=== PATIENT | female | born 1935 | race Caucasian/White ===

== ENCOUNTER 2017-02-14 08:58 | Day surgery (SDC) | payer MEDICARE, OTHER ==
[2017-02-14] MEDS: Polymyxin B/Trimethoprim 10 ML Bottle EYELF SCH ×4 (09:15→11:02)
[2017-02-14] MEDS: Brimonidine 0.2% Ophth Soln 5 ML Bottle EYELF SCH ×4 (09:22→11:02)
[2017-02-14] MEDS: Phenylephrine 2.5% Ophth Soln 2 ML Bot EYELF SCH ×6 (09:27→10:48)
--- NOTE | 2017-02-14 09:27 | PCM.PREANE ---
Preanesthetic Assessment - Anesthesia/Transfusion/Family Hx Anesthesia History: Prior Anesthesia Without Reaction Family History of Anesthesia Reaction: No Transfusion History: No Prior Transfusion(s) - Review of Systems General: No Symptoms Pulmonary: No Symptoms Cardiovascular: No Symptoms Gastrointestinal: No symptoms Neurological: No Symptoms Other: Reports: Diabetes - Physical Assessment NPO Status Date: 02/13/17 NPO Status Time: 00:00 Pulse: 66 O2 Sat by Pulse Oximetry: 94 Respiratory Rate: 16 Blood Pressure: 143/72 Temperature: 36.7 C Height: 1.68 m Weight: 90.718 kg ASA Class: 2 Mental Status: Alert & Oriented x3 Airway Class: Mallampati = 2 Dentition: Reports: Broken Tooth/Teeth, Caries Thyro-Mental Finger Breadths: 3 Mouth Opening Finger Breadths: 3 ROM/Head Extension: Full Lungs: Clear to auscultation, Normal respiratory effort Cardiovascular: Regular Rate, Regular Rhythm, No Murmurs - Allergies Allergies/Adverse Reactions: Allergies Allergy/AdvReac Type Severity Reaction Status Date / Time No Known Allergies Allergy Verified 02/13/17 15:29 - Blood Blood Available: No Product(s) Available: None - Anesthesia Plan Pre-Op Medication Ordered: Beta Cira Beta Cira: Metoprolol Med Last Dose Date: 02/13/17 Med Last Dose Time: 18:00 - Acknowledgements Anesthesia Type Planned: MAC Pt an Appropriate Candidate for the Planned Anesthesia: Yes Alternatives and Risks of Anesthesia Discussed w Pt/Guardian: Yes Pt/Guardian Understands and Agrees with Anesthesia Plan: Yes PreAnesthesia Questionnaire Cardiovascular History: Reports: Afib, Heart Failure, High Cholesterol, Hypertension, Pacemaker, Other (See Below) Other Cardiovascular History: distolic dysfunction, v-tach Respiratory History: Reports: PE, SOB Gastrointestinal History: Reports: Diverticulosis, GERD, Hiatal Hernia, Other ( See Below) Other Gastrointestinal History: lower abdominal pain, fatty liver Genitourinary History: Reports: Urinary Incontinence, UTI, Recurrent, Other ( See Below) Other Genitourinary History: chronic renal insuffciency, overactive bladder Musculoskeletal History: Reports: Back Pain, Chronic, Osteoporosis Other Musculoskeletal History: spinal stenosis Neurological History: Reports: Other (See Below) Other Neuro History: dementia Psychiatric History: Reports: Depression Endocrine/Metabolic History: Reports: Diabetes, Type II, Other (See Below) Other Endocrine/Metabolic History: goiter Other Dermatologic History: ingrown thumbnail - Past Surgical History GI Surgical History: Reports: Cholecystectomy Female Surgical History: Reports: Hysterectomy Musculoskeletal Surgical History: Reports: Hip Replacement - SUBSTANCE USE Smoking Status *Q: Never Smoker Recreational Drug Use History: No - HOME MEDS Home Medications: Home Meds Aspirin [Halfprin] 81 mg PO DAILY 12/24/14 [History] Darifenacin [Enablex] 15 mg PO DAILY 12/24/14 [History] Digoxin 250 mcg PO DAILY 12/24/14 [History] Donepezil HCl [Aricept] 10 mg PO DAILY 12/24/14 [History] Memantine HCl [Namenda] 14 mg PO DAILY 12/24/14 [History] Metoprolol Tartrate [Lopressor] 25 mg PO BID 12/24/14 [History] Omeprazole [Prilosec] 20 mg PO DAILY 12/24/14 [History] Raloxifene [Evista] 60 mg PO DAILY 12/24/14 [History] Saxagliptin HCl [Onglyza] 5 mg PO DAILY 12/24/14 [History] Venlafaxine [Effexor XR] 75 mg PO DAILY 12/24/14 [History] Warfarin [Coumadin] 5 mg PO DAILY 12/24/14 [History] Insulin Aspart [NovoLOG] 10 units SQ BEDTIME 02/22/15 [History] Insulin Aspart [NovoLOG] 20 units SQ ASDIRECTED 02/22/15 [History] Insulin Aspart [Novolog Flexpen] 28 units SQ QAM 02/22/15 [History] Insulin Detemir [Levemir Flextouch] 52 unit SQ QAM 02/22/15 [History] Omeprazole 20 mg PO DAILY 02/22/15 [History] atorvaSTATin [Lipitor] 40 mg PO BEDTIME 02/22/15 [History] Linagliptin [Tradjenta] 5 mg PO DAILY 05/31/16 [History] Mirabegron [Myrbetriq] 25 mg PO DAILY 05/31/16 [History] Warfarin [Coumadin] 2.5 mg PO DAILY 05/31/16 [History] - CURRENT (IN HOUSE) MEDS Current Meds: Current Medications Brimonidine Tartrate (Alphagan 0.2% Ophth Soln) 0 ml EYELF ASDIRECTED NATALIE Stop: 02/14/17 18:00 Cefuroxime Sodium (Zinacef) 0 mg EYELF ASDIRECTED NATALIE Stop: 02/14/17 18:00 Lidocaine HCl (Xylocaine-Mpf 1%) 1 ml INJECT ASDIRECTED NATALIE Stop: 02/14/17 18:00 Phenylephrine HCl (Hermelindo-Synephrine 2.5% Ophth Soln) 0 ml EYELF ASDIRECTED NATALIE Stop: 02/14/17 18:00 Pilocarpine HCl (Pilocar 4% Ophth Soln) 0 ml EYELF ASDIRECTED NATALIE Stop: 02/14/17 18:00 Polymyxin/Trimethoprim Sulfate (Polytrim Ophth Soln) 0 ml EYELF ASDIRECTED NATALIE Stop: 02/14/17 18:00 Last Admin: 02/14/17 09:15 Dose: 1 drop Tetracaine (Pontocaine 0.5% Ophth Drops) 0 ml EYELF ASDIRECTED NATALIE Stop: 02/14/17 18:00 Tropicamide (Mydriacyl 1% Ophth Soln) 0 ml EYELF ASDIRECTED NATALIE Stop: 02/14/17 18:00
[2017-02-14] MEDS: Tetracaine 0.5% 2 ML Bottle EYELF SCH ×3 (09:45→10:54)
[2017-02-14] MEDS: Cefuroxime 10 MG/ML SYRINGE EYELF SCH ×2 (09:45→10:56)
[2017-02-14] MEDS: Lidocaine 1% PF 2 ML SDV INJECT SCH ×2 (09:45→10:52)
[2017-02-14] MEDS: Pilocarpine 4% Ophth Soln 15 ML Bot EYELF SCH ×2 (09:46→11:02)
--- NOTE | 2017-02-14 11:06 | PCM48HPAN ---
Post Anesthesia Note - EVALUATION WITHIN 48HRS OF ANESTHETIC Vital Signs in Normal Range: Yes Patient Participated in Evaluation: Yes Respiratory Function Stable: Yes Airway Patent: Yes Cardiovascular Function Stable: Yes Hydration Status Stable: Yes Pain Control Satisfactory: Yes Nausea and Vomiting Control Satisfactory: Yes Mental Status Recovered: Yes
[2017-02-14 11:24] VITALS: BP 149/74
== END 2017-02-14 11:20 | disposition home or self-care (01) ==
LOC: JD.SDS 08:58
PROVIDERS: ATTEND Ophthalmology
DX: E10.36 Type 1 diabetes mellitus with diabetic cataract (principal); H25.813 Combined forms of age-related cataract, bilateral; H35.3131 Nonexudative age-related macular degeneration, bilateral, early dry stage; H02.834 Dermatochalasis of left upper eyelid; H02.831 Dermatochalasis of right upper eyelid; E78.00 Pure hypercholesterolemia, unspecified; I10 Essential (primary) hypertension; Z79.01 Long term (current) use of anticoagulants; Z79.899 Other long term (current) drug therapy; Z79.4 Long term (current) use of insulin; Z98.890 Other specified postprocedural states
CPT/HCPCS: 66984; A9270; J0697; C1780

== ENCOUNTER 2017-03-21 09:52 | Day surgery (SDC) | payer MEDICARE, OTHER ==
[~2017-03-21 09:52] MED LIST: Cefuroxime 10 MG/ML SYRINGE EYERT SCH; Lidocaine 1% PF 2 ML SDV INJECT SCH; Pilocarpine 4% Ophth Soln 15 ML Bot EYERT SCH
[2017-03-21] MEDS: Polymyxin B/Trimethoprim 10 ML Bottle EYERT SCH ×3 (10:43→12:41)
[2017-03-21] MEDS: Brimonidine 0.2% Ophth Soln 5 ML Bottle EYERT SCH ×3 (10:50→12:41)
[2017-03-21] MEDS: Phenylephrine 2.5% Ophth Soln 2 ML Bot EYERT SCH ×5 (10:55→12:24)
--- NOTE | 2017-03-21 11:32 | PCM.PREANE ---
Preanesthetic Assessment - Anesthesia/Transfusion/Family Hx Anesthesia History: Prior Anesthesia Without Reaction Family History of Anesthesia Reaction: No Transfusion History: No Prior Transfusion(s) - Review of Systems General: No Symptoms Pulmonary: No Symptoms Cardiovascular: Other (HTN, HLD, ) Gastrointestinal: No symptoms Neurological: No Symptoms Other: Reports: Diabetes - Physical Assessment NPO Status Date: 03/20/17 NPO Status Time: 21:00 O2 Sat by Pulse Oximetry: 96 Respiratory Rate: 16 Vital Signs: Last Vital Signs Temp 36.7 C 03/21/17 10:30 Pulse 68 03/21/17 10:30 Resp 16 03/21/17 10:30 BP 135/70 03/21/17 10:30 Pulse Ox 96 03/21/17 10:30 Height: 1.68 m Weight: 90.718 kg ASA Class: 3 Mental Status: Alert & Oriented x3 Airway Class: Mallampati = 3 Dentition: Reports: Normal Dentition (poor dentiton ) Thyro-Mental Finger Breadths: 3 Mouth Opening Finger Breadths: 3 ROM/Head Extension: Full Lungs: Clear to auscultation, Normal respiratory effort Cardiovascular: Regular Rate, Regular Rhythm - Allergies Allergies/Adverse Reactions: Allergies Allergy/AdvReac Type Severity Reaction Status Date / Time No Known Allergies Allergy Verified 03/20/17 16:14 - Blood Blood Available: No Product(s) Available: None - Anesthesia Plan Pre-Op Medication Ordered: None - Acknowledgements Anesthesia Type Planned: MAC Pt an Appropriate Candidate for the Planned Anesthesia: Yes Alternatives and Risks of Anesthesia Discussed w Pt/Guardian: Yes Pt/Guardian Understands and Agrees with Anesthesia Plan: Yes PreAnesthesia Questionnaire Cardiovascular History: Reports: Afib, Heart Failure, High Cholesterol, Hypertension, Pacemaker, Other (See Below) Other Cardiovascular History: distolic dysfunction, v-tach Respiratory History: Reports: PE, SOB Gastrointestinal History: Reports: Diverticulosis, GERD, Hiatal Hernia, Other ( See Below) Other Gastrointestinal History: lower abdominal pain, fatty liver Genitourinary History: Reports: Urinary Incontinence, UTI, Recurrent, Other ( See Below) Other Genitourinary History: chronic renal insuffciency, overactive bladder Musculoskeletal History: Reports: Back Pain, Chronic, Osteoporosis Other Musculoskeletal History: spinal stenosis Neurological History: Reports: Other (See Below) Other Neuro History: dementia Psychiatric History: Reports: Depression Endocrine/Metabolic History: Reports: Diabetes, Type II, Other (See Below) Other Endocrine/Metabolic History: goiter Other Dermatologic History: ingrown thumbnail - Past Surgical History GI Surgical History: Reports: Cholecystectomy Female Surgical History: Reports: Hysterectomy Musculoskeletal Surgical History: Reports: Hip Replacement - SUBSTANCE USE Smoking Status *Q: Never Smoker Recreational Drug Use History: No - HOME MEDS Home Medications: Home Meds Aspirin [Halfprin] 81 mg PO DAILY 12/24/14 [History] Darifenacin [Enablex] 15 mg PO DAILY 12/24/14 [History] Digoxin 250 mcg PO DAILY 12/24/14 [History] Donepezil HCl [Aricept] 10 mg PO DAILY 12/24/14 [History] Memantine HCl [Namenda] 14 mg PO DAILY 12/24/14 [History] Metoprolol Tartrate [Lopressor] 25 mg PO BID 12/24/14 [History] Omeprazole [Prilosec] 20 mg PO DAILY 12/24/14 [History] Raloxifene [Evista] 60 mg PO DAILY 12/24/14 [History] Saxagliptin HCl [Onglyza] 5 mg PO DAILY 12/24/14 [History] Venlafaxine [Effexor XR] 75 mg PO DAILY 12/24/14 [History] Warfarin [Coumadin] 5 mg PO DAILY 12/24/14 [History] Insulin Aspart [NovoLOG] 10 units SQ BEDTIME 02/22/15 [History] Insulin Aspart [NovoLOG] 20 units SQ ASDIRECTED 02/22/15 [History] Insulin Aspart [Novolog Flexpen] 28 units SQ QAM 02/22/15 [History] Insulin Detemir [Levemir Flextouch] 52 unit SQ QAM 02/22/15 [History] Omeprazole 20 mg PO DAILY 02/22/15 [History] atorvaSTATin [Lipitor] 40 mg PO BEDTIME 02/22/15 [History] Linagliptin [Tradjenta] 5 mg PO DAILY 05/31/16 [History] Mirabegron [Myrbetriq] 25 mg PO DAILY 05/31/16 [History] Warfarin [Coumadin] 2.5 mg PO DAILY 05/31/16 [History] - CURRENT (IN HOUSE) MEDS Current Meds: Current Medications Brimonidine Tartrate (Alphagan 0.2% Ophth Soln) 0 ml EYERT ASDIRECTED NATALIE Stop: 03/21/17 18:00 Last Admin: 03/21/17 10:50 Dose: 1 drop Cefuroxime Sodium (Zinacef) 0 mg EYERT ASDIRECTED NATALIE Stop: 03/21/17 18:00 Lidocaine HCl (Xylocaine-Mpf 1%) 10 ml INJECT ASDIRECTED NATALIE Stop: 03/21/17 18:00 Phenylephrine HCl (Hermelindo-Synephrine 2.5% Ophth Soln) 0 ml EYERT ASDIRECTED NATALIE Stop: 03/21/17 18:00 Last Admin: 03/21/17 11:16 Dose: 1 drop Pilocarpine HCl (Pilocar 4% Ophth Soln) 0 ml EYERT ASDIRECTED NATALIE Stop: 03/21/17 18:00 Polymyxin/Trimethoprim Sulfate (Polytrim Ophth Soln) 0 ml EYERT ASDIRECTED NATALIE Stop: 03/21/17 18:00 Last Admin: 03/21/17 11:25 Dose: 1 drop Tetracaine HCl (Tetracaine 0.5% Steri-Unit Magy) 1 ml EYERT ASDIRECTED NATALIE Stop: 03/21/17 18:00 Tropicamide (Mydriacyl 1% Oph Soln) 0 ml EYERT ASDIRECTED NATALIE Stop: 03/21/17 18:00 Last Admin: 03/21/17 11:20 Dose: 1 drop
[2017-03-21] MEDS: Tetracaine HCl/PF 0.5% 4 ML Bottle EYERT SCH ×2 (11:54→12:31)
[2017-03-21 12:54] VITALS: BP 153/62
== END 2017-03-21 12:51 | disposition home or self-care (01) ==
LOC: JD.SDS 09:52
PROVIDERS: ATTEND Ophthalmology
DX: H26.9 Unspecified cataract (principal); I10 Essential (primary) hypertension; E78.00 Pure hypercholesterolemia, unspecified; E11.9 Type 2 diabetes mellitus without complications; Z79.4 Long term (current) use of insulin; Z79.899 Other long term (current) drug therapy; Z79.01 Long term (current) use of anticoagulants; Z95.0 Presence of cardiac pacemaker; Z98.890 Other specified postprocedural states; Z96.649 Presence of unspecified artificial hip joint
CPT/HCPCS: 66984; A9270; J0697; C1780

== ENCOUNTER → 2017-08-21 | Day surgery (SDC) | payer MEDICARE, OTHER ==
[~2017-08-21] MED LIST changes: -Cefuroxime 10 MG/ML SYRINGE EYERT SCH; +Lactated Ringers 1,000 ML IV SCH; +Lidocaine 1% 30 ML SDV ONE; -Lidocaine 1% PF 2 ML SDV INJECT SCH; +Lidocaine 1%/Sod Bicarbonate in NS 8.4% 1 ML Syringe IV PRN; -Pilocarpine 4% Ophth Soln 15 ML Bot EYERT SCH; +Sodium Chloride 0.9% 10 ML Syringe FLUSH PRN; +Triamcinolone Acetonide 40 MG/ML 1 ML MDV ONE; +ceFAZolin 1 GM Vial ONE
[2017-08-21] MEDS: Bupivacaine 0.25% 30 ML SDV ONE ×2 (09:01→09:09)
[2017-08-21 10:23] VITALS: BP 144/68
--- NOTE | 2017-08-30 13:36 | PCM.OPNOTE ---
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
--- NOTE | 2017-08-30 14:16 | OR ---
DATE OF OPERATION: 08/21/2017 SURGEON: Nathanael Hammond MD OPERATION PERFORMED: 1. Right middle finger A1 adrian release. 2. Right carpal tunnel injection. PREOPERATIVE DIAGNOSIS: 1. Right middle finger stenosing tenosynovitis. 2. Right median nerve compression neuropathy. POSTOPERATIVE DIAGNOSIS: 1. Right middle finger stenosing tenosynovitis. 2. Right median nerve compression neuropathy. ANESTHESIA: Local only. TREASURY REPRESENTATIVE: Bella Godinez PA-C. ESTIMATED BLOOD LOSS: Less than 5 mL. COMPLICATIONS: None. CONDITION: Stable. DESCRIPTION OF PROCEDURE: The patient was identified in the preop holding area. Proper site was marked and identified by the surgeon. The patient was taken back to the operating theater, where after adequate anesthesia, the patient's right upper extremity was sterilely prepped and draped in the usual sterile fashion. OR-wide time-out was performed. The patient received 2 grams IV Ancef. At this time, the right upper extremity was exsanguinated with an Esmarch. Esmarch was used on the forearm as a tourniquet. A transverse incision was made over the A1 adrian of the right long finger after 1% lidocaine without epinephrine and 0.25% Marcaine without epinephrine were injected. This was taken down to the A1 adrian. Ragnell retractors were placed both radially and ulnarly to protect the neurovascular bundles. A [place] blade was then used for resection of the A1 adrian and then tenotomy scissors used proximally to enter the palm to make sure it was adequately released. The tendon was brought through the wound bed and it was found to have no significant adhesions. At this time, adequate saline was irrigated through the wound. 4-0 nylon simple suture was used for closure of the skin. After this was completed, 1 mL of 40 mg Kenalog and 1 mL of 0.25% Marcaine were injected at the carpal tunnel of the right wrist with 30 degrees distal and radial deviation. The patient tolerated these procedures well. Sterile soft dressing was applied. She was sent to the PACU in a stable condition. MMODAL /[id number]
== END | disposition home or self-care (01) ==
LOC: JD.SDS 07:29
PROVIDERS: ATTEND Orthopaedic Surgery
DX: G56.11 Other lesions of median nerve, right upper limb (principal); M65.841 Other synovitis and tenosynovitis, right hand; E11.9 Type 2 diabetes mellitus without complications; I10 Essential (primary) hypertension; E78.2 Mixed hyperlipidemia; I48.2 Chronic atrial fibrillation; Z79.4 Long term (current) use of insulin; Z79.82 Long term (current) use of aspirin; Z79.01 Long term (current) use of anticoagulants; Z79.899 Other long term (current) drug therapy; Z90.710 Acquired absence of both cervix and uterus; Z95.0 Presence of cardiac pacemaker
CPT/HCPCS: 20526; 26055; 36415; 82962; 85610; 87641; J0690; J3301; J3490

== ENCOUNTER 2021-07-01 14:29 | Inpatient (IN) | payer OTHER, MEDICARE, MEDICAID ==
[2021-07-01] MEDS ORDERED: Sodium Chloride 0.9% 10 ML Syringe FLUSH PRN (15:03)
[2021-07-01] MEDS ORDERED: Acetaminophen 650 MG Supp RECTAL ONE (15:05)
[2021-07-01] MEDS ORDERED: Sodium Chloride 0.9% 1,000 ML IV SCH ×2 (15:15→21:15)
--- NOTE | 2021-07-01 15:48 | CR ---
Chest: Frontal view of the chest was obtained. Comparison: Prior chest x-ray of 09/15/12 and 09/14/12. Heart is enlarged. Pulmonary vessels are slightly congested. Unichamber pacemaker is noted. Bony structures show nothing acute. Impression: 1. Findings suspicious for mild CHF. Diagnostic code #3
[2021-07-01] MEDS ORDERED: cefTRIAXone 2 GM in Sodium Chloride 0.9% 100 ML IV ONE (16:20)
[2021-07-01] MEDS ORDERED: Dexamethasone 4 MG/ML SDV IVPUSH ONE (17:03)
[2021-07-01] MEDS ORDERED: REMDESIVIR 200 MG in Sodium Chloride 0.9% 250 ML IV ONE (17:03)
--- NOTE | 2021-07-01 17:08 | EDM.PDOC ---
ED HPI GENERAL MEDICAL PROBLEM - General Chief Complaint: Fever Stated Complaint: POLI MORRIS Time Seen by Provider: 07/01/21 14:44 Source of Information: Reports: Prison Records History Limitations: Reports: Altered Mental Status - History of Present Illness INITIAL COMMENTS - FREE TEXT/NARRATIVE: The patient presents from the correction with a fever and shortness of breath. The patient had a COVID 19 test at the correction today and it was negative. Her temp was 101.6. Her oxygen saturations were low in the 80s. She was put on 2Ls and they came up. She has a slight cough. She is alert but does not talk. She can move her arms and leg. She did get the COVID vaccine. She had some stomach cramps a couple of days ago. Onset: Gradual Duration: Day(s): Severity: Moderate Improves with: Reports: None Worsens with: Reports: None Associated Symptoms: Reports: Cough, Fever/Chills, Shortness of Breath. Denies: Chest Pain, Headaches, Nausea/Vomiting - Related Data Allergies Allergy/AdvReac Type Severity Reaction Status Date / Time No Known Allergies Allergy Verified 08/18/17 10:26 Home Meds: Home Meds Aspirin [Halfprin] 81 mg PO DAILY 12/24/14 [History] Digoxin 125 mcg PO DAILY 12/24/14 [History] Donepezil HCl [Aricept] 10 mg PO DAILY 12/24/14 [History] Omeprazole [Prilosec] 20 mg PO BID 12/24/14 [History] Raloxifene [Evista] 60 mg PO DAILY 12/24/14 [History] Venlafaxine [Effexor XR] 75 mg PO DAILY 12/24/14 [History] Warfarin [Coumadin] 5 - 7.5 mg PO ASDIRECTED 12/24/14 [History] Insulin Aspart [NovoLOG] 23 units SQ 1200 02/22/15 [History] Insulin Aspart [NovoLOG] 23 units SQ 1700 02/22/15 [History] Insulin Aspart [Novolog Flexpen] 23 units SQ QAM 02/22/15 [History] atorvaSTATin [Lipitor] 40 mg PO BEDTIME 02/22/15 [History] Linagliptin [Tradjenta] 5 mg PO DAILY 05/31/16 [History] Mirabegron [Myrbetriq] 25 mg PO DAILY 05/31/16 [History] Insulin Aspart [NovoLOG] 10 units SQ BEDTIME 08/18/17 [History] Memantine [Namenda Xr] 14 mg PO DAILY 08/18/17 [History] Metoprolol Tartrate 25 mg PO BID 08/18/17 [History] estradioL [Vagifem] 10 mcg VAG ASDIRECTED 08/18/17 [History] traMADol HCl [Ultram] 50 - 100 mg PO Q6H PRN #10 tablet 08/19/17 [Rx] Past Medical History HEENT History: Reports: Cataract Cardiovascular History: Reports: Afib, Heart Failure, High Cholesterol, Hypertension, Pacemaker, Other (See Below) Other Cardiovascular History: distolic dysfunction, v-tach Respiratory History: Reports: PE, SOB Gastrointestinal History: Reports: Diverticulosis, GERD, Hiatal Hernia, Other (See Below) Other Gastrointestinal History: lower abdominal pain, fatty liver Genitourinary History: Reports: Urinary Incontinence, UTI, Recurrent, Other (See Below) Other Genitourinary History: chronic renal insuffciency, overactive bladder WOOD GETTER History: Reports: None Musculoskeletal History: Reports: Back Pain, Chronic, Osteoporosis Other Musculoskeletal History: spinal stenosis Neurological History: Reports: Other (See Below) Other Neuro History: dementia Psychiatric History: Reports: Depression Endocrine/Metabolic History: Reports: Diabetes, Type II, Other (See Below) Other Endocrine/Metabolic History: goiter Hematologic History: Reports: None Immunologic History: Reports: None Oncologic (Cancer) History: Reports: None Other Dermatologic History: ingrown thumbnail - Past Surgical History HEENT Surgical History: Reports: Cataract Surgery GI Surgical History: Reports: Cholecystectomy Female Surgical History: Reports: Hysterectomy Musculoskeletal Surgical History: Reports: Hip Replacement Oncologic Surgical History: Reports: None Social & Family History - Tobacco Use Tobacco Use Status *Q: Never Tobacco User Second Hand Smoke Exposure: No - Caffeine Use Caffeine Use: Reports: None - Recreational Drug Use Recreational Drug Use: No ED ROS GENERAL - Review of Systems Review Of Systems: See Below Constitutional: Reports: Fever, Chills HEENT: Reports: No Symptoms Respiratory: Reports: Shortness of Breath, Cough Cardiovascular: Reports: No Symptoms Endocrine: Reports: No Symptoms GI/Abdominal: Reports: No Symptoms ED EXAM, SEPSIS - Physical Exam Exam: See Below Exam Limited By: Other (The patient is alert but does not talk) General Appearance: Alert, No Apparent Distress Ears: Normal External Exam Nose: Normal Inspection Head: Atraumatic, Normocephalic Neck: Normal Inspection Respiratory/Chest: No Respiratory Distress, Decreased Breath Sounds Cardiovascular: Regular Rate, Rhythm, No Edema, No Murmur GI/Abdominal Exam: Soft, Non-Tender, No Organomegaly, No Mass Back: Normal Inspection Extremities: Normal Inspection Course - Vital Signs Last Recorded V/S: Last Vital Signs Temp 101.6 F H 07/01/21 16:19 Pulse 86 07/01/21 16:15 Resp 28 H 07/01/21 16:15 BP 148/83 H 07/01/21 16:15 Pulse Ox 94 L 07/01/21 16:15 - Orders/Labs/Meds Orders: Active Orders 24 hr Category Date Time Status Cardiac Monitoring [RC] . DIRECTED Care 07/01/21 15:03 Active Oxygen Therapy [RC] PRN Care 07/01/21 15:03 Active Peripheral IV Care [RC] . DIRECTED Care 07/01/21 15:04 Active BLOOD CULTURE [MREF] Stat Lab 07/01/21 14:55 Received BLOOD CULTURE [MREF] Stat Lab 07/01/21 15:15 Received PRO B-TYPE NATRIUR PEPT,BNPPRO [CHEM] Stat Lab 07/01/21 17:13 Ordered REFLEX LACTIC ACID YES OR NO [CHEM] Routine Lab 07/01/21 16:14 Received Sodium Chloride 0.9% [Normal Saline] 1,000 ml Med 07/01/21 15:15 Active IV ASDIRECTED Sodium Chloride 0.9% [Saline Flush] Med 07/01/21 15:03 Active 10 ml FLUSH ASDIRECTED PRN Blood Culture x2 Reflex Set [OM.PC] Stat Oth 07/01/21 17:03 Ordered Peripheral IV Insertion Adult [OM.PC] Stat Oth 07/01/21 15:03 Ordered Medication Orders Sodium Chloride (Normal Saline) 1,000 mls @ 125 mls/hr IV ASDIRECTED NATALIE Last Admin: 07/01/21 16:26 Dose: 125 mls/hr Documented by: KANDICE Sodium Chloride (Sodium Chloride 0.9% 10 Ml Syringe) 10 ml FLUSH ASDIRECTED PRN PRN Reason: Keep Vein Open Last Admin: 07/01/21 14:55 Dose: 10 ml Documented by: KANDICE Labs: Laboratory Tests 07/01/21 07/01/21 07/01/21 Range/Units 14:55 14:55 14:55 WBC 8.10 (3.98-10.04) K/mm3 RBC 3.99 (3.98-5.22) M/mm3 Hgb 12.4 (11.2-15.7) gm/dl Hct 40.0 (34.1-44.9) % MCV 100.3 H (79.4-94.8) fl MCH 31.1 (25.6-32.2) pg MCHC 31.0 L (32.2-35.5) g/dl RDW Std Deviation 54.0 H (36.4-46.3) fL Plt Count 179 L (182-369) K/mm3 MPV 10.5 (9.4-12.3) fl Neut % (Auto) 71.1 (34.0-71.1) % Lymph % (Auto) 8.3 L (19.3-51.7) % Reagan % (Auto) 19.3 H (4.7-12.5) % Eos % (Auto) 0.1 L (0.7-5.8) Baso % (Auto) 0.6 (0.1-1.2) % Neut # (Auto) 5.76 (1.56-6.13) K/mm3 Lymph # (Auto) 0.67 L (1.18-3.74) K/mm3 Reagan # (Auto) 1.56 H (0.24-0.36) K/mm3 Eos # (Auto) 0.01 L (0.04-0.36) K/mm3 Baso # (Auto) 0.05 (0.01-0.08) K/mm3 Manual Slide Review Abnormal smear PT (9.7-12.0) SECONDS INR Sodium 138 (136-145) mEq/L Potassium 4.1 (3.5-5.1) mEq/L Chloride 100 (98-107) mEq/L Carbon Dioxide 29 (21-32) mEq/L Anion Gap 13.1 (5-15) BUN 31 H (7-18) mg/dL Creatinine 2.0 H (0.55-1.02) mg/dL Est Cr Clr Drug Dosing TNP Estimated GFR (MDRD) 24 (>60) mL/min BUN/Creatinine Ratio 15.5 (14-18) Glucose 138 H (70-99) mg/dL POC Glucose (70-99) mg/dL Lactic Acid 2.3 H* (0.4-2.0) mmol/L Calcium 9.1 (8.5-10.1) mg/dL Total Bilirubin 0.7 (0.2-1.0) mg/dL AST 27 (15-37) U/L ALT 23 (14-59) U/L Alkaline Phosphatase 34 L (46-116) U/L C-Reactive Protein 17.0 H* (<1.0) mg/dL Total Protein 7.6 (6.4-8.2) g/dl Albumin 3.1 L (3.4-5.0) g/dl Globulin 4.5 gm/dL Albumin/Globulin Ratio 0.7 L (1-2) Urine Color (Yellow) Urine Appearance (Clear) Urine pH (5.0-8.0) Ur Specific [place] (1.005-1.030) Urine Protein (Negative) Urine Glucose (UA) (Negative) Urine Ketones (Negative) Urine Occult Blood (Negative) Urine Nitrite (Negative) Urine Bilirubin (Negative) Urine Urobilinogen (0.2-1.0) Ur Leukocyte Esterase (Negative) U Hyaline Cast (Auto) (0-5) /lpf Urine RBC (0-5) /hpf Urine WBC (0-5) /hpf Ur Squamous Epith Cells (0-5) /hpf Urine Bacteria (FEW) /hpf Urine Mucus (FEW) /hpf SARS-CoV-2 RNA (JANE) (NEGATIVE) 07/01/21 07/01/21 07/01/21 Range/Units 14:55 14:57 16:00 WBC (3.98-10.04) K/mm3 RBC (3.98-5.22) M/mm3 Hgb (11.2-15.7) gm/dl Hct (34.1-44.9) % MCV (79.4-94.8) fl MCH (25.6-32.2) pg MCHC (32.2-35.5) g/dl RDW Std Deviation (36.4-46.3) fL Plt Count (182-369) K/mm3 MPV (9.4-12.3) fl Neut % (Auto) (34.0-71.1) % Lymph % (Auto) (19.3-51.7) % Reagan % (Auto) (4.7-12.5) % Eos % (Auto) (0.7-5.8) Baso % (Auto) (0.1-1.2) % Neut # (Auto) (1.56-6.13) K/mm3 Lymph # (Auto) (1.18-3.74) K/mm3 Reagan # (Auto) (0.24-0.36) K/mm3 Eos # (Auto) (0.04-0.36) K/mm3 Baso # (Auto) (0.01-0.08) K/mm3 Manual Slide Review PT 16.1 H (9.7-12.0) SECONDS INR 1.47 Sodium (136-145) mEq/L Potassium (3.5-5.1) mEq/L Chloride (98-107) mEq/L Carbon Dioxide (21-32) mEq/L Anion Gap (5-15) BUN (7-18) mg/dL Creatinine (0.55-1.02) mg/dL Est Cr Clr Drug Dosing Estimated GFR (MDRD) (>60) mL/min BUN/Creatinine Ratio (14-18) Glucose (70-99) mg/dL POC Glucose 138 H (70-99) mg/dL Lactic Acid (0.4-2.0) mmol/L Calcium (8.5-10.1) mg/dL Total Bilirubin (0.2-1.0) mg/dL AST (15-37) U/L ALT (14-59) U/L Alkaline Phosphatase (46-116) U/L C-Reactive Protein (<1.0) mg/dL Total Protein (6.4-8.2) g/dl Albumin (3.4-5.0) g/dl Globulin gm/dL Albumin/Globulin Ratio (1-2) Urine Color (Yellow) Urine Appearance (Clear) Urine pH (5.0-8.0) Ur Specific [place] (1.005-1.030) Urine Protein (Negative) Urine Glucose (UA) (Negative) Urine Ketones (Negative) Urine Occult Blood (Negative) Urine Nitrite (Negative) Urine Bilirubin (Negative) Urine Urobilinogen (0.2-1.0) Ur Leukocyte Esterase (Negative) U Hyaline Cast (Auto) (0-5) /lpf Urine RBC (0-5) /hpf Urine WBC (0-5) /hpf Ur Squamous Epith Cells (0-5) /hpf Urine Bacteria (FEW) /hpf Urine Mucus (FEW) /hpf SARS-CoV-2 RNA (JANE) Positive H (NEGATIVE) 07/01/21 Range/Units 16:05 WBC (3.98-10.04) K/mm3 RBC (3.98-5.22) M/mm3 Hgb (11.2-15.7) gm/dl Hct (34.1-44.9) % MCV (79.4-94.8) fl MCH (25.6-32.2) pg MCHC (32.2-35.5) g/dl RDW Std Deviation (36.4-46.3) fL Plt Count (182-369) K/mm3 MPV (9.4-12.3) fl Neut % (Auto) (34.0-71.1) % Lymph % (Auto) (19.3-51.7) % Reagan % (Auto) (4.7-12.5) % Eos % (Auto) (0.7-5.8) Baso % (Auto) (0.1-1.2) % Neut # (Auto) (1.56-6.13) K/mm3 Lymph # (Auto) (1.18-3.74) K/mm3 Reagan # (Auto) (0.24-0.36) K/mm3 Eos # (Auto) (0.04-0.36) K/mm3 Baso # (Auto) (0.01-0.08) K/mm3 Manual Slide Review PT (9.7-12.0) SECONDS INR Sodium (136-145) mEq/L Potassium (3.5-5.1) mEq/L Chloride (98-107) mEq/L Carbon Dioxide (21-32) mEq/L Anion Gap (5-15) BUN (7-18) mg/dL Creatinine (0.55-1.02) mg/dL Est Cr Clr Drug Dosing Estimated GFR (MDRD) (>60) mL/min BUN/Creatinine Ratio (14-18) Glucose (70-99) mg/dL POC Glucose (70-99) mg/dL Lactic Acid (0.4-2.0) mmol/L Calcium (8.5-10.1) mg/dL Total Bilirubin (0.2-1.0) mg/dL AST (15-37) U/L ALT (14-59) U/L Alkaline Phosphatase (46-116) U/L C-Reactive Protein (<1.0) mg/dL Total Protein (6.4-8.2) g/dl Albumin (3.4-5.0) g/dl Globulin gm/dL Albumin/Globulin Ratio (1-2) Urine Color Yellow (Yellow) Urine Appearance Clear (Clear) Urine pH 5.5 (5.0-8.0) Ur Specific [place] 1.025 (1.005-1.030) Urine Protein 1+ H (Negative) Urine Glucose (UA) Negative (Negative) Urine Ketones Trace H (Negative) Urine Occult Blood Negative (Negative) Urine Nitrite Negative (Negative) Urine Bilirubin Negative (Negative) Urine Urobilinogen 0.2 (0.2-1.0) Ur Leukocyte Esterase Negative (Negative) U Hyaline Cast (Auto) 0-5 (0-5) /lpf Urine RBC 0-5 (0-5) /hpf Urine WBC 0-5 (0-5) /hpf Ur Squamous Epith Cells Not seen (0-5) /hpf Urine Bacteria Few (FEW) /hpf Urine Mucus Not seen (FEW) /hpf SARS-CoV-2 RNA (JANE) (NEGATIVE) Meds: Medications Generic Name Dose Route Start Last Admin Trade Name Freq PRN Reason Stop Dose Admin Sodium Chloride 1,000 mls @ 125 mls/hr 07/01/21 15:15 07/01/21 16:26 Normal Saline IV 125 mls/hr ASDIRECTED NATALIE Administration Sodium Chloride 10 ml 07/01/21 15:03 07/01/21 14:55 Sodium Chloride 0.9% 10 Ml Syringe FLUSH 10 ml ASDIRECTED PRN Administration Keep Vein Open Discontinued Medications Generic Name Dose Route Start Last Admin Trade Name Freq PRN Reason Stop Dose Admin Acetaminophen 650 mg 07/01/21 15:05 07/01/21 16:19 Acetaminophen 650 Mg Supp RECTAL 07/01/21 15:06 650 mg NOW ONE Administration Dexamethasone 6 mg 07/01/21 17:03 Dexamethasone 4 Mg/Ml Sdv IVPUSH 07/01/21 17:04 ONETIME ONE Ceftriaxone Sodium 2 gm/ 100 mls @ 200 mls/hr 07/01/21 16:20 07/01/21 16:46 Sodium Chloride IV 07/01/21 16:49 200 mls/hr ONETIME ONE Administration Remdesivir 200 mg/ Sodium 250 mls @ 250 mls/hr 07/01/21 17:03 Chloride IV 07/01/21 17:04 ONETIME ONE - Re-Assessments/Exams Free Text/Narrative Re-Assessment/Exam: 07/01/21 17:27 I ordered oxygen, IV NS at 125mL/hr, CXR, blood cultures, lactic acid, UA, labs and COVID 19. Her CBC looks good. Her PT was 16.1. Her creatine is 2. Her glucose is 136. Her lactic acid is elevated at 2.3. His CRP is 17. Her UA shows no UTI. Her CXR shows congestion changes. Her UA shows no UTI. She is COVID 19 positive. I ordered rocephin before I had the COVID back. Her lactic was high and she had a fever. I have ordered dexamethasone 6mg IV and I cannot give remdesivir because of her high creatinine. I feel she needs to be admitted. I called Dr Bender and he agreed to the admission. I also talked with her sons. Departure - Departure Time of Disposition: 17:35 Disposition: Admitted As Inpatient 67 Condition: Serious Clinical Impression: COVID-19, Hypoxia - Discharge Information Referrals: Reed Yin MD [Primary Care Provider] - Forms: ED Department Discharge Sepsis Event Note (ED) - Evaluation Sepsis Screening Result: No Definite Risk - Focused Exam Vital Signs: Vital Signs Temp Temp Pulse Resp BP Pulse Ox 07/01/21 16:19 101.6 F H 07/01/21 16:15 101.6 F H 86 28 H 148/83 H 94 L 07/01/21 14:30 101.5 F H 104 H 32 H 142/63 H 87 L - My Orders Last 24 Hours: My Active Orders 07/01/21 14:55 BLOOD CULTURE [MREF] Stat 07/01/21 15:03 Cardiac Monitoring [RC] . DIRECTED Oxygen Therapy [RC] PRN Sodium Chloride 0.9% [Saline Flush] 10 ml FLUSH ASDIRECTED PRN Peripheral IV Insertion Adult [OM.PC] Stat 07/01/21 15:04 Peripheral IV Care [RC] . DIRECTED 07/01/21 15:15 BLOOD CULTURE [MREF] Stat Sodium Chloride 0.9% [Normal Saline] 1,000 ml IV ASDIRECTED 07/01/21 16:14 REFLEX LACTIC ACID YES OR NO [CHEM] Routine 07/01/21 17:03 Blood Culture x2 Reflex Set [OM.PC] Stat 07/01/21 17:13 PRO B-TYPE NATRIUR PEPT,BNPPRO [CHEM] Stat - Assessment/Plan Last 24 Hours: My Active Orders 07/01/21 14:55 BLOOD CULTURE [MREF] Stat 07/01/21 15:03 Cardiac Monitoring [RC] . DIRECTED Oxygen Therapy [RC] PRN Sodium Chloride 0.9% [Saline Flush] 10 ml FLUSH ASDIRECTED PRN Peripheral IV Insertion Adult [OM.PC] Stat 07/01/21 15:04 Peripheral IV Care [RC] . DIRECTED 07/01/21 15:15 BLOOD CULTURE [MREF] Stat Sodium Chloride 0.9% [Normal Saline] 1,000 ml IV ASDIRECTED 07/01/21 16:14 REFLEX LACTIC ACID YES OR NO [CHEM] Routine 07/01/21 17:03 Blood Culture x2 Reflex Set [OM.PC] Stat 07/01/21 17:13 PRO B-TYPE NATRIUR PEPT,BNPPRO [CHEM] Stat
[2021-07-01] MEDS ORDERED: FLU Vacc QS2021(65UP)/MF59C/PF 60 MCG/0.5 ML Syringe IM ONE (20:00)
[2021-07-01] MEDS ORDERED: Acetaminophen 325 MG Tab PO PRN (20:51)
[2021-07-01] MEDS ORDERED: Albuterol 0.083% 2.5 MG/3 ML Neb Soln NEB PRN (20:51)
[2021-07-01] MEDS ORDERED: Ondansetron 4 MG/2 ML SDV IV PRN (20:51)
[2021-07-01] MEDS ORDERED: Albuterol/Ipratropium 3.0-0.5 MG/3 ML Neb Soln NEB PRN (20:51)
[2021-07-01] MEDS ORDERED: Acetaminophen 650 MG Supp RECTAL PRN (20:51)
[2021-07-01] MEDS ORDERED: Bisacodyl 10 MG Supp RECTAL PRN (20:58)
--- NOTE | 2021-07-01 21:10 | PCM.HP.2 ---
H&P History of Present Illness - General Date of Service: 07/01/21 Admit Problem/Dx: Admission Diagnosis/Problem Admission Diagnosis/Problem Hypoxia - History of Present Illness Initial Comments - Free Text/Narative: 86-year-old female resident of [facility] with Alzheimer's dementia, atrial fibrillation, psychotic disorder with delusions due to known physiological condition, abnormalities of gait, dysphagia unspecified, borderline intellectual functioning, unspecified psychosis, atrial fibrillation with use of warfarin, diabetes mellitus on insulin, chronic kidney disease, hypertension, sick sinus syndrome with pacemaker, venous insufficiency, gastroesophageal reflux disease, history of pressure ulcer of right buttock stage III but not current presents to the emergency department with a fever of 101.6, oxygen saturations in the low eighties, slight cough, and change in mental status. Reportedly [facility]ative at the [facility], but on presentation to the emergency department and when transferred to the floor she would open her eyes, look around, move her arms and legs, but not speak. Patient had a negative Covid test at the [facility], but it was positive here in the emergency department. History was not obtained through the patient had to be obtained through the emergency department notes and the [facility] documentation. In the emergency department she was started on IV fluids, chest x-ray, blood cultures, lab work and started on ceftriaxone and dexamethasone. Chest x-ray showed possible CHF with a BNP of 567. C-reactive protein was elevated at 17. She had lactic acidosis initially with a lactic acid of 2.3 and on repeat 1.0. Acute renal failure creatinine of 2.0 and estimated GFR of 24. Remdesivir was not given secondary to renal function. She was previously vaccinated - Related Data Allergies/Adverse Reactions: Allergies Allergy/AdvReac Type Severity Reaction Status Date / Time atorvastatin [From Lipitor] Allergy Cannot Verified 07/01/21 18:47 Remember Home Medications: Home Meds Aspirin [Halfprin] 81 mg PO BEDTIME 12/24/14 [History] Digoxin 125 mcg PO DAILY 12/24/14 [History] Raloxifene [Evista] 60 mg PO DAILY 12/24/14 [History] Warfarin [Coumadin] 2.5 mg PO WE 12/24/14 [History] Insulin Aspart [NovoLOG] 14 units SQ TIDMEALS 02/22/15 [History] Insulin Aspart [Novolog Flexpen] See Protocol SQ TIDMEALS 02/22/15 [History] Metoprolol Tartrate 12.5 mg PO BID 08/18/17 [History] Acetaminophen 650 mg PO TID 07/01/21 [History] Acetaminophen 650 mg PO TID PRN 07/01/21 [History] Albuterol Sulfate [Albuterol Sulfate HFA] 2 puff INH DAILY 07/01/21 [History] Albuterol Sulfate [Albuterol Sulfate HFA] 2 puff INH Q4H PRN 07/01/21 [History] Calcium Carb/Vitamin D3/Vit K1 [Calcium + D Soft Chewable Tab] 1 tab PO BID 07/01/21 [History] Docusate Sodium/Sennosides [Senna Plus] 2 tab PO BID 07/01/21 [History] Docusate Sodium/Sennosides [Senna Plus] 2 tab PO DAILY PRN 07/01/21 [History] Insulin Glarg,Human.Rec.Analog [Lantus] 18 unit SQ DAILY 07/01/21 [History] Levothyroxine 25 mcg PO ACBREAKFAST 07/01/21 [History] Mirabegron [Myrbetriq] 25 mg PO DAILY 07/01/21 [History] Polyvinyl Alcohol [LiquiTears 1.4% Oph Soln] 1 drop EYEBOTH BID PRN 07/01/21 [History] Venlafaxine HCl 100 mg PO DAILY 07/01/21 [History] Warfarin [Coumadin] 5 mg PO SUMOTUTHFRSA 07/01/21 [History] bisacodyL [Dulcolax] 10 mg RECTAL DAILY PRN 07/01/21 [History] polyethylene glycoL 3350 [MiraLAX] 17 gram PO DAILY PRN 07/01/21 [History] Past Medical History HEENT History: Reports: Cataract Other HEENT History: Dermatochalasis of bilat upper eyelids Cardiovascular History: Reports: Afib, Heart Failure, High Cholesterol, Hypertension, Pacemaker, Other (See Below) Other Cardiovascular History: distolic dysfunction, v-tach. Sick sinus syndrome Respiratory History: Reports: PE, SOB Gastrointestinal History: Reports: Diverticulosis, GERD, Hiatal Hernia, Other (See Below) Other Gastrointestinal History: lower abdominal pain, fatty liver. dysphagia Genitourinary History: Reports: Urinary Incontinence, UTI, Recurrent, Other (See Below) Other Genitourinary History: chronic renal insuffciency, overactive bladder [employer] History: Reports: None Musculoskeletal History: Reports: Arthritis, Back Pain, Chronic, Osteoporosis Other Musculoskeletal History: spinal stenosis. unsteady of feet. arthritis to bilat knees. Neurological History: Reports: Other (See Below) Other Neuro History: dementia Psychiatric History: Reports: Depression, Other (See Below) Other Psychiatric History: psychotic disorder with delusions Endocrine/Metabolic History: Reports: Diabetes, Type II, Other (See Below) Other Endocrine/Metabolic History: goiter Hematologic History: Reports: None Immunologic History: Reports: None Oncologic (Cancer) History: Reports: None Other Dermatologic History: ingrown thumbnail. History of stage 3 Pressure ulcer of right buttock - Infectious Disease History Infectious Disease History: Reports: Novel Coronavirus - Past Surgical History HEENT Surgical History: Reports: Cataract Surgery GI Surgical History: Reports: Cholecystectomy Female Surgical History: Reports: Hysterectomy Musculoskeletal Surgical History: Reports: Hip Replacement Oncologic Surgical History: Reports: None Social & Family History - Tobacco Use Tobacco Use Status *Q: Never Tobacco User Second Hand Smoke Exposure: No - Caffeine Use Caffeine Use: Reports: Coffee - Recreational Drug Use Recreational Drug Use: No H&P Review of Systems - Review of Systems: Review Of Systems: Unable To Obtain Reason Not Obtained: Not communicative Exam - Exam Exam: See Below - Vital Signs Vital Signs: Last Vital Signs Temp 100.4 F 07/01/21 18:38 Pulse 89 07/01/21 18:38 Resp 24 H 07/01/21 18:38 BP 154/75 H 07/01/21 18:38 Pulse Ox 98 07/01/21 18:38 Weight: 231 lb 4.8 oz - Exam Quality Assessment: Supplemental Oxygen General: Alert, Mild Distress. No: Oriented HEENT: Conjunctiva Clear, EACs Clear, Hearing Intact, Mucosa Moist & [place] Neck: Supple, Trachea Midline Lungs: Normal Respiratory Effort, Crackles (Bibasilar) Cardiovascular: Irregular Rhythm (Regular rate and rhythm consistent with A. fib) GI/Abdominal Exam: Normal Bowel Sounds, Soft, Non-Tender, No Distention Extremities: Normal Inspection, Normal Range of Motion, Non-Tender, Normal Capillary Refill, Pedal Edema (1+) - Patient Data Lab Results Last 24 hrs: Laboratory Results - last 24 hr 0907/01/21 07/01/21 Range/Units 14:55 14:55 14:55 WBC 8.10 (3.98-10.04) K/mm3 RBC 3.99 (3.98-5.22) M/mm3 Hgb 12.4 (11.2-15.7) gm/dl Hct 40.0 (34.1-44.9) % MCV 100.3 H (79.4-94.8) fl MCH 31.1 (25.6-32.2) pg MCHC 31.0 L (32.2-35.5) g/dl RDW Std Deviation 54.0 H (36.4-46.3) fL Plt Count 179 L (182-369) K/mm3 MPV 10.5 (9.4-12.3) fl Neut % (Auto) 71.1 (34.0-71.1) % Lymph % (Auto) 8.3 L (19.3-51.7) % [place] % (Auto) 19.3 H (4.7-12.5) % Eos % (Auto) 0.1 L (0.7-5.8) Baso % (Auto) 0.6 (0.1-1.2) % Neut # (Auto) 5.76 (1.56-6.13) K/mm3 Lymph # (Auto) 0.67 L (1.18-3.74) K/mm3 [place] # (Auto) 1.56 H (0.24-0.36) K/mm3 Eos # (Auto) 0.01 L (0.04-0.36) K/mm3 Baso # (Auto) 0.05 (0.01-0.08) K/mm3 Manual Slide Review Abnormal smear PT (9.7-12.0) SECONDS INR Sodium 138 (136-145) mEq/L Potassium 4.1 (3.5-5.1) mEq/L Chloride 100 (98-107) mEq/L Carbon Dioxide 29 (21-32) mEq/L Anion Gap 13.1 (5-15) BUN 31 H (7-18) mg/dL Creatinine 2.0 H (0.55-1.02) mg/dL Est Cr Clr Drug Dosing TNP Estimated GFR (MDRD) 24 (>60) mL/min BUN/Creatinine Ratio 15.5 (14-18) Glucose 138 H (70-99) mg/dL POC Glucose (70-99) mg/dL Lactic Acid 2.3 H* (0.4-2.0) mmol/L Calcium 9.1 (8.5-10.1) mg/dL Total Bilirubin 0.7 (0.2-1.0) mg/dL AST 27 (15-37) U/L ALT 23 (14-59) U/L Alkaline Phosphatase 34 L (46-116) U/L C-Reactive Protein 17.0 H* (<1.0) mg/dL NT-Pro-B Natriuret Pep (0-450) pg/mL Total Protein 7.6 (6.4-8.2) g/dl Albumin 3.1 L (3.4-5.0) g/dl Globulin 4.5 gm/dL Albumin/Globulin Ratio 0.7 L (1-2) Urine Color (Yellow) Urine Appearance (Clear) Urine pH (5.0-8.0) Ur Specific [place] (1.005-1.030) Urine Protein (Negative) Urine Glucose (UA) (Negative) Urine Ketones (Negative) Urine Occult Blood (Negative) Urine Nitrite (Negative) Urine Bilirubin (Negative) Urine Urobilinogen (0.2-1.0) Ur Leukocyte Esterase (Negative) U Hyaline Cast (Auto) (0-5) /lpf Urine RBC (0-5) /hpf Urine WBC (0-5) /hpf Ur Squamous Epith Cells (0-5) /hpf Urine Bacteria (FEW) /hpf Urine Mucus (FEW) /hpf SARS-CoV-2 RNA (JANE) (NEGATIVE) MRSA (PCR) 07/01/21 07/01/21 07/01/21 Range/Units 14:55 14:57 16:00 WBC (3.98-10.04) K/mm3 RBC (3.98-5.22) M/mm3 Hgb (11.2-15.7) gm/dl Hct (34.1-44.9) % MCV (79.4-94.8) fl MCH (25.6-32.2) pg MCHC (32.2-35.5) g/dl RDW Std Deviation (36.4-46.3) fL Plt Count (182-369) K/mm3 MPV (9.4-12.3) fl Neut % (Auto) (34.0-71.1) % Lymph % (Auto) (19.3-51.7) % [place] % (Auto) (4.7-12.5) % Eos % (Auto) (0.7-5.8) Baso % (Auto) (0.1-1.2) % Neut # (Auto) (1.56-6.13) K/mm3 Lymph # (Auto) (1.18-3.74) K/mm3 [place] # (Auto) (0.24-0.36) K/mm3 Eos # (Auto) (0.04-0.36) K/mm3 Baso # (Auto) (0.01-0.08) K/mm3 Manual Slide Review PT 16.1 H (9.7-12.0) SECONDS INR 1.47 Sodium (136-145) mEq/L Potassium (3.5-5.1) mEq/L Chloride (98-107) mEq/L Carbon Dioxide (21-32) mEq/L Anion Gap (5-15) BUN (7-18) mg/dL Creatinine (0.55-1.02) mg/dL Est Cr Clr Drug Dosing Estimated GFR (MDRD) (>60) mL/min BUN/Creatinine Ratio (14-18) Glucose (70-99) mg/dL POC Glucose 138 H (70-99) mg/dL Lactic Acid (0.4-2.0) mmol/L Calcium (8.5-10.1) mg/dL Total Bilirubin (0.2-1.0) mg/dL AST (15-37) U/L ALT (14-59) U/L Alkaline Phosphatase (46-116) U/L C-Reactive Protein (<1.0) mg/dL NT-Pro-B Natriuret Pep (0-450) pg/mL Total Protein (6.4-8.2) g/dl Albumin (3.4-5.0) g/dl Globulin gm/dL Albumin/Globulin Ratio (1-2) Urine Color (Yellow) Urine Appearance (Clear) Urine pH (5.0-8.0) Ur Specific [place] (1.005-1.030) Urine Protein (Negative) Urine Glucose (UA) (Negative) Urine Ketones (Negative) Urine Occult Blood (Negative) Urine Nitrite (Negative) Urine Bilirubin (Negative) Urine Urobilinogen (0.2-1.0) Ur Leukocyte Esterase (Negative) U Hyaline Cast (Auto) (0-5) /lpf Urine RBC (0-5) /hpf Urine WBC (0-5) /hpf Ur Squamous Epith Cells (0-5) /hpf Urine Bacteria (FEW) /hpf Urine Mucus (FEW) /hpf SARS-CoV-2 RNA (JANE) Positive H (NEGATIVE) MRSA (PCR) 07/01/21 07/01/21 07/01/21 Range/Units 16:05 18:20 18:20 WBC (3.98-10.04) K/mm3 RBC (3.98-5.22) M/mm3 Hgb (11.2-15.7) gm/dl Hct (34.1-44.9) % MCV (79.4-94.8) fl MCH (25.6-32.2) pg MCHC (32.2-35.5) g/dl RDW Std Deviation (36.4-46.3) fL Plt Count (182-369) K/mm3 MPV (9.4-12.3) fl Neut % (Auto) (34.0-71.1) % Lymph % (Auto) (19.3-51.7) % [place] % (Auto) (4.7-12.5) % Eos % (Auto) (0.7-5.8) Baso % (Auto) (0.1-1.2) % Neut # (Auto) (1.56-6.13) K/mm3 Lymph # (Auto) (1.18-3.74) K/mm3 [place] # (Auto) (0.24-0.36) K/mm3 Eos # (Auto) (0.04-0.36) K/mm3 Baso # (Auto) (0.01-0.08) K/mm3 Manual Slide Review PT (9.7-12.0) SECONDS INR Sodium (136-145) mEq/L Potassium (3.5-5.1) mEq/L Chloride (98-107) mEq/L Carbon Dioxide (21-32) mEq/L Anion Gap (5-15) BUN (7-18) mg/dL Creatinine (0.55-1.02) mg/dL Est Cr Clr Drug Dosing Estimated GFR (MDRD) (>60) mL/min BUN/Creatinine Ratio (14-18) Glucose (70-99) mg/dL POC Glucose (70-99) mg/dL Lactic Acid 1.0 (0.4-2.0) mmol/L Calcium (8.5-10.1) mg/dL Total Bilirubin (0.2-1.0) mg/dL AST (15-37) U/L ALT (14-59) U/L Alkaline Phosphatase (46-116) U/L C-Reactive Protein (<1.0) mg/dL NT-Pro-B Natriuret Pep 567 H (0-450) pg/mL Total Protein (6.4-8.2) g/dl Albumin (3.4-5.0) g/dl Globulin gm/dL Albumin/Globulin Ratio (1-2) Urine Color Yellow (Yellow) Urine Appearance Clear (Clear) Urine pH 5.5 (5.0-8.0) Ur Specific [place] 1.025 (1.005-1.030) Urine Protein 1+ H (Negative) Urine Glucose (UA) Negative (Negative) Urine Ketones Trace H (Negative) Urine Occult Blood Negative (Negative) Urine Nitrite Negative (Negative) Urine Bilirubin Negative (Negative) Urine Urobilinogen 0.2 (0.2-1.0) Ur Leukocyte Esterase Negative (Negative) U Hyaline Cast (Auto) 0-5 (0-5) /lpf Urine RBC 0-5 (0-5) /hpf Urine WBC 0-5 (0-5) /hpf Ur Squamous Epith Cells Not seen (0-5) /hpf Urine Bacteria Few (FEW) /hpf Urine Mucus Not seen (FEW) /hpf SARS-CoV-2 RNA (JANE) (NEGATIVE) MRSA (PCR) 07/01/21 Range/Units 18:30 WBC (3.98-10.04) K/mm3 RBC (3.98-5.22) M/mm3 Hgb (11.2-15.7) gm/dl Hct (34.1-44.9) % MCV (79.4-94.8) fl MCH (25.6-32.2) pg MCHC (32.2-35.5) g/dl RDW Std Deviation (36.4-46.3) fL Plt Count (182-369) K/mm3 MPV (9.4-12.3) fl Neut % (Auto) (34.0-71.1) % Lymph % (Auto) (19.3-51.7) % [place] % (Auto) (4.7-12.5) % Eos % (Auto) (0.7-5.8) Baso % (Auto) (0.1-1.2) % Neut # (Auto) (1.56-6.13) K/mm3 Lymph # (Auto) (1.18-3.74) K/mm3 [place] # (Auto) (0.24-0.36) K/mm3 Eos # (Auto) (0.04-0.36) K/mm3 Baso # (Auto) (0.01-0.08) K/mm3 Manual Slide Review PT (9.7-12.0) SECONDS INR Sodium (136-145) mEq/L Potassium (3.5-5.1) mEq/L Chloride (98-107) mEq/L Carbon Dioxide (21-32) mEq/L Anion Gap (5-15) BUN (7-18) mg/dL Creatinine (0.55-1.02) mg/dL Est Cr Clr Drug Dosing Estimated GFR (MDRD) (>60) mL/min BUN/Creatinine Ratio (14-18) Glucose (70-99) mg/dL POC Glucose (70-99) mg/dL Lactic Acid (0.4-2.0) mmol/L Calcium (8.5-10.1) mg/dL Total Bilirubin (0.2-1.0) mg/dL AST (15-37) U/L ALT (14-59) U/L Alkaline Phosphatase (46-116) U/L C-Reactive Protein (<1.0) mg/dL NT-Pro-B Natriuret Pep (0-450) pg/mL Total Protein (6.4-8.2) g/dl Albumin (3.4-5.0) g/dl Globulin gm/dL Albumin/Globulin Ratio (1-2) Urine Color (Yellow) Urine Appearance (Clear) Urine pH (5.0-8.0) Ur Specific [place] (1.005-1.030) Urine Protein (Negative) Urine Glucose (UA) (Negative) Urine Ketones (Negative) Urine Occult Blood (Negative) Urine Nitrite (Negative) Urine Bilirubin (Negative) Urine Urobilinogen (0.2-1.0) Ur Leukocyte Esterase (Negative) U Hyaline Cast (Auto) (0-5) /lpf Urine RBC (0-5) /hpf Urine WBC (0-5) /hpf Ur Squamous Epith Cells (0-5) /hpf Urine Bacteria (FEW) /hpf Urine Mucus (FEW) /hpf SARS-CoV-2 RNA (JANE) (NEGATIVE) MRSA (PCR) Negative Result Diagrams: 07/02/21 06:50 07/02/21 06:50 Greg Results Last 24 hrs: Microbiology 07/01/21 16:00 Influenza Type A Antigen Screen - Final Nasopharyngeal Swab - Nare, Unspecified NEGATIVE INFLUENZA A VIRUS AG REFERENCE RANGE: NEGATIVE Influenza Type B Antigen Screen - Final NEGATIVE INFLUENZA B VIRUS AG REFERENCE RANGE: NEGATIVE Sepsis Event Note - Evaluation Sepsis Screening Result: No Definite Risk - Focused Exam Vital Signs: Vital Signs Temp Temp Pulse Pulse Resp BP BP 07/01/21 18:38 100.4 F 89 24 H 154/75 H 07/01/21 18:26 101.6 F H 80 16 130/56 L 07/01/21 16:19 101.6 F H 07/01/21 16:15 101.6 F H 86 28 H 148/83 H 07/01/21 14:30 101.5 F H 104 H 32 H 142/63 H Pulse Ox 07/01/21 18:38 98 07/01/21 18:26 94 L 07/01/21 16:19 07/01/21 16:15 94 L 07/01/21 14:30 87 L - Problem List (1) Pneumonia due to COVID-19 virus SNOMED Code(s): 200358235097084314 ICD Code: U07.1 - COVID-19; J12.82 - PNEUMONIA DUE TO CORONAVIRUS DISEASE 2019 Status: Acute Current Visit: Yes (2) Insulin dependent diabetes mellitus SNOMED Code(s): 53376698 ICD Code: [id number] - Status: Acute Current Visit: Yes (3) Acute on chronic renal insufficiency SNOMED Code(s): 001894232 ICD Code: N28.9 - DISORDER OF KIDNEY AND URETER, UNSPECIFIED; N18.9 - CHRONIC KIDNEY DISEASE, UNSPECIFIED Status: Acute Current Visit: Yes (4) Atrial fibrillation SNOMED Code(s): 03881680 ICD Code: I48.91 - UNSPECIFIED ATRIAL FIBRILLATION Status: Acute Current Visit: Yes Problem List Initiated/Reviewed/Updated: Yes Orders Last 24hrs: Active Orders 24 hr Category Date Time Status Admission Status [Patient Status] [ADT] Routine ADT 07/01/21 17:25 Active Blood Glucose Check, Bedside [RC] QIDACANDBED Care 07/01/21 20:01 Active Blood Glucose Check, Bedside [RC] QIDACANDBED Care 07/01/21 21:05 Ordered Cardiac Monitoring [RC] . DIRECTED Care 07/01/21 15:03 Active Nurse Communication: Isolation [RC] ASDIRECTED Care 07/01/21 20:51 Ordered Oxygen Therapy [RC] PRN Care 07/01/21 15:03 Active Oxygen Therapy [RC] PRN Care 07/01/21 20:51 Ordered RT Aerosol Therapy [RC] ASDIRECTED Care 07/01/21 20:54 Ordered RT Incentive Spirometry [RC] ASDIRECTED Care 07/01/21 20:51 Ordered Up With Assistance [RC] ASDIRECTED Care 07/01/21 20:51 Ordered VTE/DVT Education [RC] PER UNIT ROUTINE Care 07/01/21 20:51 Ordered Vaccine to be Administered/Admin Charge [RC] ASDIRECTED Care 07/01/21 19:09 Active Vital Signs [RC] Q4H Care 07/01/21 20:51 Ordered PT Evaluation and Treatment [CONS] Routine Cons 07/01/21 20:51 Ordered Nothing per Oral Now Diet [DIET] Diet 07/01/21 Dinner Ordered BLOOD CULTURE [MREF] Stat Lab 07/01/21 14:55 Received BLOOD CULTURE [MREF] Stat Lab 07/01/21 15:15 Received C-REACTIVE PROTEIN [CHEM] AM Lab 07/02/21 05:11 Ordered CBC WITH AUTO DIFF [HEME] AM Lab 07/02/21 05:11 Ordered CMP [COMPREHENSIVE METABOLIC PN,CMP] [CHEM] AM Lab 07/02/21 05:11 Ordered DD [D-DIMER QUANTITATIVE] [COAG] AM Lab 07/02/21 05:11 Ordered DIGOXIN [CHEM] AM Lab 07/02/21 05:11 Ordered INR,PT,PROTHROMBIN TIME [COAG] AM Lab 07/02/21 05:11 Ordered INR,PT,PROTHROMBIN TIME [COAG] AM Lab 07/03/21 05:11 Ordered INR,PT,PROTHROMBIN TIME [COAG] AM Lab 07/04/21 05:11 Ordered INR,PT,PROTHROMBIN TIME [COAG] AM Lab 07/05/21 05:11 Ordered INR,PT,PROTHROMBIN TIME [COAG] AM Lab 07/06/21 05:11 Ordered INR,PT,PROTHROMBIN TIME [COAG] AM Lab 07/07/21 05:11 Ordered MAGNESIUM [CHEM] AM Lab 07/02/21 05:11 Ordered PHOSPHORUS [CHEM] AM Lab 07/02/21 05:11 Ordered Acetaminophen [TylenoL] Med 07/01/21 20:51 Ordered 650 mg PO Q4H PRN Acetaminophen [Tylenol] Med 07/01/21 20:51 Ordered 650 mg RECTAL Q4H PRN Albuterol Sulfate Med 07/02/21 09:00 Ordered 2 puff INH DAILY Albuterol Sulfate Med 07/01/21 20:58 Ordered 2 puff INH Q4H PRN Albuterol [Proventil Neb Soln] Med 07/01/21 20:51 Ordered 2.5 mg NEB Q2H PRN Albuterol/Ipratropium [DuoNeb 3.0-0.5 MG/3 ML] Med 07/01/21 20:51 Ordered 3 ml NEB Q4H PRN Aspirin [Halfprin] Med 07/01/21 21:00 Ordered 81 mg PO BEDTIME Azithromycin [Zithromax] 500 mg Med 07/01/21 21:15 Ordered Sodium Chloride 0.9% [Normal Saline (AdvBag)] 250 ml IV Q24H Digoxin [Lanoxin] Med 07/02/21 09:00 Ordered 125 mcg PO DAILY Docusate Sodium/Sennosides [Senna Plus] Med 07/01/21 21:00 Ordered 2 tab PO BID Docusate Sodium/Sennosides [Senna Plus] Med 07/01/21 20:58 Ordered 2 tab PO DAILY PRN Insulin Glarg,Human.Rec.Analog [LantUS] Med 07/02/21 09:00 Ordered 10 unit SUBCUT DAILY Insulin Lispro [HumaLOG] Med 07/01/21 22:00 Ordered See Protocol SUBCUT QIDACANDBED Levothyroxine Med 07/02/21 06:00 Ordered 25 mcg PO ACBREAKFAST Metoprolol Tartrate [Lopressor] Med 07/01/21 21:00 Ordered 12.5 mg PO BID Ondansetron [Zofran] Med 07/01/21 20:51 Ordered 4 mg IV Q6H PRN Pharmacy to Dose - InFluenza V [Pharmacy to Dose - Med 07/01/21 19:09 Pending InFluenza Vaccine] 1 each IM ONETIME ONE Pharmacy to Dose - Warfarin Med 07/01/21 21:00 Ordered 1 dose .XX ASDIRECTED Sodium Chloride 0.9% @ 50 MLS/HR(1000ml Bag) Med 07/01/21 21:15 Ordered Sodium Chloride 0.9% [Normal Saline] 1,000 ml IV ASDIRECTED Sodium Chloride 0.9% [Saline Flush] Med 07/01/21 15:03 Active 10 ml FLUSH ASDIRECTED PRN Venlafaxine HCl [Venlafaxine HCl] Med 07/02/21 09:00 Ordered 100 mg PO DAILY bisacodyL [Dulcolax] Med 07/01/21 20:58 Ordered 10 mg RECTAL DAILY PRN cefTRIAXone [Rocephin] 2 gm Med 07/02/21 16:00 Ordered Sodium Chloride 0.9% [Normal Saline] 100 ml IV Q24H dexAMETHasone [Decadron] Med 07/02/21 09:00 Ordered 6 mg IVPUSH DAILY Blood Culture x2 Reflex Set [OM.PC] Stat Ot 07/01/21 17:03 Ordered Isolation [COMM] Stat Ot 07/01/21 20:51 Ordered Peripheral IV Insertion Adult [OM.PC] Stat Ot 07/01/21 15:03 Ordered RT Acapella [RESPCARE] Routine Oth 07/01/21 20:51 Ordered Resuscitation Status Routine Resus Stat 07/01/21 20:51 Ordered Medication Orders Acetaminophen (Acetaminophen 650 Mg Supp) 650 mg RECTAL Q4H PRN PRN Reason: Pain (mild 1-3) Acetaminophen (Acetaminophen 325 Mg Tab) 650 mg PO Q4H PRN PRN Reason: Pain (Mild 1-3)/fever Albuterol (Albuterol 0.083% 2.5 Mg/3 Ml Neb Soln) 2.5 mg NEB Q2H PRN PRN Reason: Shortness Of Breath/wheezing Albuterol/Ipratropium (Albuterol/Ipratropium 3.0-0.5 Mg/3 Ml Neb Soln) 3 ml NEB Q4H PRN PRN Reason: Shortness Of Breath/wheezing Aspirin (Aspirin 81 Mg Tab.Ec) 81 mg PO BEDTIME [facility] Bisacodyl (Bisacodyl 10 Mg Supp) 10 mg RECTAL DAILY PRN PRN Reason: Constipation Dexamethasone (Dexamethasone 10 Mg/Ml Sdv) 6 mg IVPUSH DAILY [facility] Stop: 07/11/21 09:01 Digoxin (Digoxin 250 Mcg Tab) 125 mcg PO DAILY [facility] Ceftriaxone Sodium 2 gm/ (Sodium Chloride) 100 mls @ 200 mls/hr IV Q24H [facility]ALIE Stop: 07/05/21 16:29 Azithromycin 500 mg/ Sodium (Chloride) 250 mls @ 250 mls/hr IV Q24H [facility] Stop: 07/03/21 22:29 Sodium Chloride (Normal Saline) 1,000 mls @ 50 mls/hr IV ASDIRECTED [facility] Influenza Virus Vaccine (Pharmacy To Dose - Influenza Vaccine) 1 each IM ONETIME ONE Stop: 07/01/21 19:10 Insulin Glargine (Insulin Glarg,Human.Rec.Analog 100 Unit/Ml) 10 unit SUBCUT [facility] Insulin Human Lispro (Insulin Lispro 100 Unit/Ml 10 Ml Vial) 0 unit SUBCUT QIDACANDBED [facility]; Protocol Levothyroxine Sodium (Levothyroxine 25 Mcg Tab) 25 mcg PO ACBREAKFAST [facility] Metoprolol Tartrate (Metoprolol Tartrate 50 Mg Tab) 12.5 mg PO BID [facility] Non-Formulary Medication (Albuterol Sulfate) 2 puff INH DAILY [facility] Non-Formulary Medication (Albuterol Sulfate) 2 puff INH Q4H PRN PRN Reason: Shortness of Breath Non-Formulary Medication (Venlafaxine Hcl [Venlafaxine Hcl]) 100 mg PO DAILY [facility] Ondansetron HCl (Ondansetron 4 Mg/2 Ml Sdv) 4 mg IV Q6H PRN PRN Reason: Nausea/Vomiting Senna/Docusate Sodium (Docusate Sodium/Sennosides 50-8.6 Mg Tab) 2 tab PO BID [facility] Senna/Docusate Sodium (Docusate Sodium/Sennosides 50-8.6 Mg Tab) 2 tab PO DAILY PRN PRN Reason: Constipation Sodium Chloride (Sodium Chloride 0.9% 10 Ml Syringe) 10 ml FLUSH ASDIRECTED PRN PRN Reason: Keep Vein Open Last Admin: 07/01/21 14:55 Dose: 10 ml Documented by: KANDICE Warfarin Sodium (Pharmacy To Dose - Warfarin) 1 dose .XX ASDIRECTED [facility] Assessment/Plan Comment:: 86-year-old female with Alzheimer's dementia, atrial fibrillation, psychotic disorder with delusions due to known physiological condition, abnormalities of gait, dysphagia unspecified, borderline intellectual functioning, unspecified psychosis, atrial fibrillation with use of warfarin, diabetes mellitus on in sulin, chronic kidney disease, hypertension, sick sinus syndrome with pacemaker, venous insufficiency, gastroesophageal reflux disease, history of pressure ulcer of right buttock stage III but not current presents to emergency department with altered mental status, hypoxia due to COVID-19 pneumonia. Respiratory failure secondary to COVID-19 pneumonia Altered mental status * Oxygen saturations on arrival were in the low eighties requiring 2 to 3 L of O2 via nasal cannula * Renal function too poor to be able to start remdesivir * Temperature on arrival of 101.6 * Altered mental status likely secondary to metabolic encephalopathy and COVID- 19 * White count 8.1, platelets 179, CRP 17, lactic acid went from 2.3-1.0 * Elevated BNP may be secondary to CHF versus renal insufficiency * Received Covid vaccination Alzheimer's dementia * Patient's baseline mental functioning is reduced because of her history of psychosis and Alzheimer's dementia. She is able to communicate normally. Atrial fibrillation on warfarin Subtherapeutic INR * INR is subtherapeutic at 1.47 * Rate is controlled on home medications Insulin-dependent diabetes mellitus * No hemoglobin A1c * MAR says she is on 14 units of short acting insulin at meals and 18 units of Lantus daily Acute renal failure on chronic * Initial GFR less than 30 therefore no remdesivir will be started * No recent baseline renal function available * Started on fluids in the emergency department Hypertension/sick sinus syndrome with pacemaker * Monitor blood pressure and heart rate closely Plan * Admit patient to the floor on strict isolation * Continue IV fluids * Continue remdesivir and ceftriaxone * Start azithromycin * Follow Covid labs to include CBC, CMP, mag, Phos, CRP, D-dimer * Get procalcitonin * Reconcile home meds and continue appropriate medications * Pharmacy to dose warfarin * Daily INR * Initially n.p.o. because of mental status * Advance diet if mental status improves tomorrow * Lantus 10 units daily initially and increase as needed; sliding scale scale insulin; consider prandial blood sugars if taking p.o. well * Hemoglobin A1c * Renally adjust medications * VTE prophylaxis with Lovenox * CODE STATUS: Full code - Mortality Measure Prognosis:: Poor
[2021-07-01] MEDS: Aspirin 81 MG Tab.EC PO SCH (21:49)
[2021-07-01] MEDS: Azithromycin 500 MG in Sodium Chloride 0.9% 250 ML IV SCH (21:50)
[2021-07-01] MEDS: Metoprolol Tartrate 25 MG Tab PO SCH (22:03)
[2021-07-01] MEDS ORDERED: Warfarin 5 MG Tab PO ONE (23:00)
[2021-07-01] MEDS: Insulin Lispro 100 UNIT/ML 10 ML Vial SUBCUT SCH (23:09)
[2021-07-02] MEDS: Levothyroxine 25 MCG Tab PO SCH (06:26)
[2021-07-02] MEDS ORDERED: Magnesium Sulfate/Water 2 GM in Premix Bag 1 BAG IV ONE (08:29)
[2021-07-02] MEDS: Albuterol 6.7 GM Inhaler INH SCH (08:30)
[2021-07-02] MEDS: Insulin Glarg,Human.Rec.Analog 100 Unit/ML SUBCUT SCH (09:02)
[2021-07-02] MEDS: Insulin Lispro 100 UNIT/ML 10 ML Vial SUBCUT SCH ×4 (09:03→21:32)
[2021-07-02] MEDS: Dexamethasone 10 MG/ML SDV IVPUSH SCH (09:04)
[2021-07-02] MEDS: Digoxin 125 MCG Tab PO SCH (09:05)
[2021-07-02] MEDS: Metoprolol Tartrate 25 MG Tab PO SCH ×2 (09:08→20:26)
[2021-07-02] MEDS: VENLAFAXINE HCL 100 MG PO SCH (09:09)
--- NOTE | 2021-07-02 12:39 | PCM.PN ---
- General Info Date of Service: 07/02/21 Admission Dx/Problem (Free Text): Admission Diagnosis/Problem Admission Diagnosis/Problem Hypoxia Subjective Update: Patient responded verbally this morning. She seems to be feeling much better and did take her medications in applesauce while standing there Functional Status: Reports: Pain Controlled - Review of Systems General: Reports: Other (Unable to obtain due to underlying dementia and possibly delirium) - Patient Data Vitals - Most Recent: Last Vital Signs Temp 97.9 F 07/02/21 11:35 Pulse 62 07/02/21 11:35 Resp 17 07/02/21 11:35 BP 145/86 H 07/02/21 11:00 Pulse Ox 91 L 07/02/21 11:35 Weight - Most Recent: 230 lb I&O - Last 24 Hours: Intake & Output 07/01/21 07/02/21 07/02/21 22:59 06:59 14:59 Intake Total 625 Balance 625 Lab Results Last 24 Hours: Laboratory Results - last 24 hr 07/01/21 07/01/21 07/01/21 Range/Units 14:55 14:55 14:55 WBC 8.10 (3.98-10.04) K/mm3 RBC 3.99 (3.98-5.22) M/mm3 Hgb 12.4 (11.2-15.7) gm/dl Hct 40.0 (34.1-44.9) % MCV 100.3 H (79.4-94.8) fl MCH 31.1 (25.6-32.2) pg MCHC 31.0 L (32.2-35.5) g/dl RDW Std Deviation 54.0 H (36.4-46.3) fL Plt Count 179 L (182-369) K/mm3 MPV 10.5 (9.4-12.3) fl Neut % (Auto) 71.1 (34.0-71.1) % Lymph % (Auto) 8.3 L (19.3-51.7) % [place] % (Auto) 19.3 H (4.7-12.5) % Eos % (Auto) 0.1 L (0.7-5.8) Baso % (Auto) 0.6 (0.1-1.2) % Neut # (Auto) 5.76 (1.56-6.13) K/mm3 Lymph # (Auto) 0.67 L (1.18-3.74) K/mm3 [place] # (Auto) 1.56 H (0.24-0.36) K/mm3 Eos # (Auto) 0.01 L (0.04-0.36) K/mm3 Baso # (Auto) 0.05 (0.01-0.08) K/mm3 Manual Slide Review Abnormal smear PT (9.7-12.0) SECONDS INR D-Dimer, Quantitative (0.19-0.50) mg/L Sodium 138 (136-145) mEq/L Potassium 4.1 (3.5-5.1) mEq/L Chloride 100 (98-107) mEq/L Carbon Dioxide 29 (21-32) mEq/L Anion Gap 13.1 (5-15) BUN 31 H (7-18) mg/dL Creatinine 2.0 H (0.55-1.02) mg/dL Est Cr Clr Drug Dosing TNP Estimated GFR (MDRD) 24 (>60) mL/min BUN/Creatinine Ratio 15.5 (14-18) Glucose 138 H (70-99) mg/dL POC Glucose (70-99) mg/dL Lactic Acid 2.3 H* (0.4-2.0) mmol/L Calcium 9.1 (8.5-10.1) mg/dL Phosphorus (2.6-4.7) mg/dL Magnesium (1.8-2.4) mg/dL Total Bilirubin 0.7 (0.2-1.0) mg/dL AST 27 (15-37) U/L ALT 23 (14-59) U/L Alkaline Phosphatase 34 L (46-116) U/L C-Reactive Protein 17.0 H* (<1.0) mg/dL NT-Pro-B Natriuret Pep (0-450) pg/mL Total Protein 7.6 (6.4-8.2) g/dl Albumin 3.1 L (3.4-5.0) g/dl Globulin 4.5 gm/dL Albumin/Globulin Ratio 0.7 L (1-2) Urine Color (Yellow) Urine Appearance (Clear) Urine pH (5.0-8.0) Ur Specific [place] (1.005-1.030) Urine Protein (Negative) Urine Glucose (UA) (Negative) Urine Ketones (Negative) Urine Occult Blood (Negative) Urine Nitrite (Negative) Urine Bilirubin (Negative) Urine Urobilinogen (0.2-1.0) Ur Leukocyte Esterase (Negative) U Hyaline Cast (Auto) (0-5) /lpf Urine RBC (0-5) /hpf Urine WBC (0-5) /hpf Ur Squamous Epith Cells (0-5) /hpf Urine Bacteria (FEW) /hpf Urine Mucus (FEW) /hpf Digoxin (0.9-2.0) ng/mL SARS-CoV-2 RNA (JANE) (NEGATIVE) MRSA (PCR) 07/01/21 07/01/21 07/01/21 Range/Units 14:55 14:57 16:00 WBC (3.98-10.04) K/mm3 RBC (3.98-5.22) M/mm3 Hgb (11.2-15.7) gm/dl Hct (34.1-44.9) % MCV (79.4-94.8) fl MCH (25.6-32.2) pg MCHC (32.2-35.5) g/dl RDW Std Deviation (36.4-46.3) fL Plt Count (182-369) K/mm3 MPV (9.4-12.3) fl Neut % (Auto) (34.0-71.1) % Lymph % (Auto) (19.3-51.7) % [place] % (Auto) (4.7-12.5) % Eos % (Auto) (0.7-5.8) Baso % (Auto) (0.1-1.2) % Neut # (Auto) (1.56-6.13) K/mm3 Lymph # (Auto) (1.18-3.74) K/mm3 [place] # (Auto) (0.24-0.36) K/mm3 Eos # (Auto) (0.04-0.36) K/mm3 Baso # (Auto) (0.01-0.08) K/mm3 Manual Slide Review PT 16.1 H (9.7-12.0) SECONDS INR 1.47 D-Dimer, Quantitative (0.19-0.50) mg/L Sodium (136-145) mEq/L Potassium (3.5-5.1) mEq/L Chloride (98-107) mEq/L Carbon Dioxide (21-32) mEq/L Anion Gap (5-15) BUN (7-18) mg/dL Creatinine (0.55-1.02) mg/dL Est Cr Clr Drug Dosing Estimated GFR (MDRD) (>60) mL/min BUN/Creatinine Ratio (14-18) Glucose (70-99) mg/dL POC Glucose 138 H (70-99) mg/dL Lactic Acid (0.4-2.0) mmol/L Calcium (8.5-10.1) mg/dL Phosphorus (2.6-4.7) mg/dL Magnesium (1.8-2.4) mg/dL Total Bilirubin (0.2-1.0) mg/dL AST (15-37) U/L ALT (14-59) U/L Alkaline Phosphatase (46-116) U/L C-Reactive Protein (<1.0) mg/dL NT-Pro-B Natriuret Pep (0-450) pg/mL Total Protein (6.4-8.2) g/dl Albumin (3.4-5.0) g/dl Globulin gm/dL Albumin/Globulin Ratio (1-2) Urine Color (Yellow) Urine Appearance (Clear) Urine pH (5.0-8.0) Ur Specific [place] (1.005-1.030) Urine Protein (Negative) Urine Glucose (UA) (Negative) Urine Ketones (Negative) Urine Occult Blood (Negative) Urine Nitrite (Negative) Urine Bilirubin (Negative) Urine Urobilinogen (0.2-1.0) Ur Leukocyte Esterase (Negative) U Hyaline Cast (Auto) (0-5) /lpf Urine RBC (0-5) /hpf Urine WBC (0-5) /hpf Ur Squamous Epith Cells (0-5) /hpf Urine Bacteria (FEW) /hpf Urine Mucus (FEW) /hpf Digoxin (0.9-2.0) ng/mL SARS-CoV-2 RNA (JANE) Positive H (NEGATIVE) MRSA (PCR) 07/01/21 07/01/21 07/01/21 Range/Units 16:05 18:20 18:20 WBC (3.98-10.04) K/mm3 RBC (3.98-5.22) M/mm3 Hgb (11.2-15.7) gm/dl Hct (34.1-44.9) % MCV (79.4-94.8) fl MCH (25.6-32.2) pg MCHC (32.2-35.5) g/dl RDW Std Deviation (36.4-46.3) fL Plt Count (182-369) K/mm3 MPV (9.4-12.3) fl Neut % (Auto) (34.0-71.1) % Lymph % (Auto) (19.3-51.7) % [place] % (Auto) (4.7-12.5) % Eos % (Auto) (0.7-5.8) Baso % (Auto) (0.1-1.2) % Neut # (Auto) (1.56-6.13) K/mm3 Lymph # (Auto) (1.18-3.74) K/mm3 [place] # (Auto) (0.24-0.36) K/mm3 Eos # (Auto) (0.04-0.36) K/mm3 Baso # (Auto) (0.01-0.08) K/mm3 Manual Slide Review PT (9.7-12.0) SECONDS INR D-Dimer, Quantitative (0.19-0.50) mg/L Sodium (136-145) mEq/L Potassium (3.5-5.1) mEq/L Chloride (98-107) mEq/L Carbon Dioxide (21-32) mEq/L Anion Gap (5-15) BUN (7-18) mg/dL Creatinine (0.55-1.02) mg/dL Est Cr Clr Drug Dosing Estimated GFR (MDRD) (>60) mL/min BUN/Creatinine Ratio (14-18) Glucose (70-99) mg/dL POC Glucose (70-99) mg/dL Lactic Acid 1.0 (0.4-2.0) mmol/L Calcium (8.5-10.1) mg/dL Phosphorus (2.6-4.7) mg/dL Magnesium (1.8-2.4) mg/dL Total Bilirubin (0.2-1.0) mg/dL AST (15-37) U/L ALT (14-59) U/L Alkaline Phosphatase (46-116) U/L C-Reactive Protein (<1.0) mg/dL NT-Pro-B Natriuret Pep 567 H (0-450) pg/mL Total Protein (6.4-8.2) g/dl Albumin (3.4-5.0) g/dl Globulin gm/dL Albumin/Globulin Ratio (1-2) Urine Color Yellow (Yellow) Urine Appearance Clear (Clear) Urine pH 5.5 (5.0-8.0) Ur Specific [place] 1.025 (1.005-1.030) Urine Protein 1+ H (Negative) Urine Glucose (UA) Negative (Negative) Urine Ketones Trace H (Negative) Urine Occult Blood Negative (Negative) Urine Nitrite Negative (Negative) Urine Bilirubin Negative (Negative) Urine Urobilinogen 0.2 (0.2-1.0) Ur Leukocyte Esterase Negative (Negative) U Hyaline Cast (Auto) 0-5 (0-5) /lpf Urine RBC 0-5 (0-5) /hpf Urine WBC 0-5 (0-5) /hpf Ur Squamous Epith Cells Not seen (0-5) /hpf Urine Bacteria Few (FEW) /hpf Urine Mucus Not seen (FEW) /hpf Digoxin (0.9-2.0) ng/mL SARS-CoV-2 RNA (JANE) (NEGATIVE) MRSA (PCR) 07/01/21 07/01/21 07/02/21 Range/Units 18:30 22:00 06:31 WBC (3.98-10.04) K/mm3 RBC (3.98-5.22) M/mm3 Hgb (11.2-15.7) gm/dl Hct (34.1-44.9) % MCV (79.4-94.8) fl MCH (25.6-32.2) pg MCHC (32.2-35.5) g/dl RDW Std Deviation (36.4-46.3) fL Plt Count (182-369) K/mm3 MPV (9.4-12.3) fl Neut % (Auto) (34.0-71.1) % Lymph % (Auto) (19.3-51.7) % [place] % (Auto) (4.7-12.5) % Eos % (Auto) (0.7-5.8) Baso % (Auto) (0.1-1.2) % Neut # (Auto) (1.56-6.13) K/mm3 Lymph # (Auto) (1.18-3.74) K/mm3 [place] # (Auto) (0.24-0.36) K/mm3 Eos # (Auto) (0.04-0.36) K/mm3 Baso # (Auto) (0.01-0.08) K/mm3 Manual Slide Review PT (9.7-12.0) SECONDS INR D-Dimer, Quantitative (0.19-0.50) mg/L Sodium (136-145) mEq/L Potassium (3.5-5.1) mEq/L Chloride (98-107) mEq/L Carbon Dioxide (21-32) mEq/L Anion Gap (5-15) BUN (7-18) mg/dL Creatinine (0.55-1.02) mg/dL Est Cr Clr Drug Dosing Estimated GFR (MDRD) (>60) mL/min BUN/Creatinine Ratio (14-18) Glucose (70-99) mg/dL POC Glucose 190 H 230 H (70-99) mg/dL Lactic Acid (0.4-2.0) mmol/L Calcium (8.5-10.1) mg/dL Phosphorus (2.6-4.7) mg/dL Magnesium (1.8-2.4) mg/dL Total Bilirubin (0.2-1.0) mg/dL AST (15-37) U/L ALT (14-59) U/L Alkaline Phosphatase (46-116) U/L C-Reactive Protein (<1.0) mg/dL NT-Pro-B Natriuret Pep (0-450) pg/mL Total Protein (6.4-8.2) g/dl Albumin (3.4-5.0) g/dl Globulin gm/dL Albumin/Globulin Ratio (1-2) Urine Color (Yellow) Urine Appearance (Clear) Urine pH (5.0-8.0) Ur Specific [place] (1.005-1.030) Urine Protein (Negative) Urine Glucose (UA) (Negative) Urine Ketones (Negative) Urine Occult Blood (Negative) Urine Nitrite (Negative) Urine Bilirubin (Negative) Urine Urobilinogen (0.2-1.0) Ur Leukocyte Esterase (Negative) U Hyaline Cast (Auto) (0-5) /lpf Urine RBC (0-5) /hpf Urine WBC (0-5) /hpf Ur Squamous Epith Cells (0-5) /hpf Urine Bacteria (FEW) /hpf Urine Mucus (FEW) /hpf Digoxin (0.9-2.0) ng/mL SARS-CoV-2 RNA (JANE) (NEGATIVE) MRSA (PCR) Negative 07/02/21 07/02/21 07/02/21 Range/Units 06:50 06:50 06:50 WBC 5.29 (3.98-10.04) K/mm3 RBC 3.62 L (3.98-5.22) M/mm3 Hgb 11.3 (11.2-15.7) gm/dl Hct 36.5 (34.1-44.9) % MCV 100.8 H (79.4-94.8) fl MCH 31.2 (25.6-32.2) pg MCHC 31.0 L (32.2-35.5) g/dl RDW Std Deviation 53.2 H (36.4-46.3) fL Plt Count 158 L (182-369) K/mm3 MPV 10.5 (9.4-12.3) fl Neut % (Auto) 61.6 (34.0-71.1) % Lymph % (Auto) 18.5 L (19.3-51.7) % [place] % (Auto) 19.5 H (4.7-12.5) % Eos % (Auto) 0 L (0.7-5.8) Baso % (Auto) 0.2 (0.1-1.2) % Neut # (Auto) 3.26 (1.56-6.13) K/mm3 Lymph # (Auto) 0.98 L (1.18-3.74) K/mm3 [place] # (Auto) 1.03 H (0.24-0.36) K/mm3 Eos # (Auto) 0.00 L (0.04-0.36) K/mm3 Baso # (Auto) 0.01 (0.01-0.08) K/mm3 Manual Slide Review PT 14.5 H (9.7-12.0) SECONDS INR 1.32 D-Dimer, Quantitative 0.35 (0.19-0.50) mg/L Sodium 140 (136-145) mEq/L Potassium 4.5 (3.5-5.1) mEq/L Chloride 102 (98-107) mEq/L Carbon Dioxide 26 (21-32) mEq/L Anion Gap 16.5 H (5-15) BUN 31 H (7-18) mg/dL Creatinine 1.6 H (0.55-1.02) mg/dL Est Cr Clr Drug Dosing 25.00 Estimated GFR (MDRD) 31 (>60) mL/min BUN/Creatinine Ratio 19.4 H (14-18) Glucose 238 H (70-99) mg/dL POC Glucose (70-99) mg/dL Lactic Acid (0.4-2.0) mmol/L Calcium 8.3 L (8.5-10.1) mg/dL Phosphorus 5.1 H (2.6-4.7) mg/dL Magnesium 1.5 L (1.8-2.4) mg/dL Total Bilirubin 0.4 (0.2-1.0) mg/dL AST 31 (15-37) U/L ALT 19 (14-59) U/L Alkaline Phosphatase 27 L (46-116) U/L C-Reactive Protein 16.2 H* (<1.0) mg/dL NT-Pro-B Natriuret Pep (0-450) pg/mL Total Protein 6.6 (6.4-8.2) g/dl Albumin 2.6 L (3.4-5.0) g/dl Globulin 4.0 gm/dL Albumin/Globulin Ratio 0.7 L (1-2) Urine Color (Yellow) Urine Appearance (Clear) Urine pH (5.0-8.0) Ur Specific [place] (1.005-1.030) Urine Protein (Negative) Urine Glucose (UA) (Negative) Urine Ketones (Negative) Urine Occult Blood (Negative) Urine Nitrite (Negative) Urine Bilirubin (Negative) Urine Urobilinogen (0.2-1.0) Ur Leukocyte Esterase (Negative) U Hyaline Cast (Auto) (0-5) /lpf Urine RBC (0-5) /hpf Urine WBC (0-5) /hpf Ur Squamous Epith Cells (0-5) /hpf Urine Bacteria (FEW) /hpf Urine Mucus (FEW) /hpf Digoxin 0.9 (0.9-2.0) ng/mL SARS-CoV-2 RNA (JANE) (NEGATIVE) MRSA (PCR) 07/02/21 Range/Units 11:39 WBC (3.98-10.04) K/mm3 RBC (3.98-5.22) M/mm3 Hgb (11.2-15.7) gm/dl Hct (34.1-44.9) % MCV (79.4-94.8) fl MCH (25.6-32.2) pg MCHC (32.2-35.5) g/dl RDW Std Deviation (36.4-46.3) fL Plt Count (182-369) K/mm3 MPV (9.4-12.3) fl Neut % (Auto) (34.0-71.1) % Lymph % (Auto) (19.3-51.7) % [place] % (Auto) (4.7-12.5) % Eos % (Auto) (0.7-5.8) Baso % (Auto) (0.1-1.2) % Neut # (Auto) (1.56-6.13) K/mm3 Lymph # (Auto) (1.18-3.74) K/mm3 [place] # (Auto) (0.24-0.36) K/mm3 Eos # (Auto) (0.04-0.36) K/mm3 Baso # (Auto) (0.01-0.08) K/mm3 Manual Slide Review PT (9.7-12.0) SECONDS INR D-Dimer, Quantitative (0.19-0.50) mg/L Sodium (136-145) mEq/L Potassium (3.5-5.1) mEq/L Chloride (98-107) mEq/L Carbon Dioxide (21-32) mEq/L Anion Gap (5-15) BUN (7-18) mg/dL Creatinine (0.55-1.02) mg/dL Est Cr Clr Drug Dosing Estimated GFR (MDRD) (>60) mL/min BUN/Creatinine Ratio (14-18) Glucose (70-99) mg/dL POC Glucose 227 H (70-99) mg/dL Lactic Acid (0.4-2.0) mmol/L Calcium (8.5-10.1) mg/dL Phosphorus (2.6-4.7) mg/dL Magnesium (1.8-2.4) mg/dL Total Bilirubin (0.2-1.0) mg/dL AST (15-37) U/L ALT (14-59) U/L Alkaline Phosphatase (46-116) U/L C-Reactive Protein (<1.0) mg/dL NT-Pro-B Natriuret Pep (0-450) pg/mL Total Protein (6.4-8.2) g/dl Albumin (3.4-5.0) g/dl Globulin gm/dL Albumin/Globulin Ratio (1-2) Urine Color (Yellow) Urine Appearance (Clear) Urine pH (5.0-8.0) Ur Specific [place] (1.005-1.030) Urine Protein (Negative) Urine Glucose (UA) (Negative) Urine Ketones (Negative) Urine Occult Blood (Negative) Urine Nitrite (Negative) Urine Bilirubin (Negative) Urine Urobilinogen (0.2-1.0) Ur Leukocyte Esterase (Negative) U Hyaline Cast (Auto) (0-5) /lpf Urine RBC (0-5) /hpf Urine WBC (0-5) /hpf Ur Squamous Epith Cells (0-5) /hpf Urine Bacteria (FEW) /hpf Urine Mucus (FEW) /hpf Digoxin (0.9-2.0) ng/mL SARS-CoV-2 RNA (JANE) (NEGATIVE) MRSA (PCR) Greg Results Last 24 Hours: Microbiology 07/01/21 16:00 Influenza Type A Antigen Screen - Final Nasopharyngeal Swab - Nare, Unspecified NEGATIVE INFLUENZA A VIRUS AG REFERENCE RANGE: NEGATIVE Influenza Type B Antigen Screen - Final NEGATIVE INFLUENZA B VIRUS AG REFERENCE RANGE: NEGATIVE Med Orders - Current: Current Medications Acetaminophen (Acetaminophen 650 Mg Supp) 650 mg RECTAL Q4H PRN PRN Reason: Pain (mild 1-3) Acetaminophen (Acetaminophen 325 Mg Tab) 650 mg PO Q4H PRN PRN Reason: Pain (Mild 1-3)/fever Albuterol (Albuterol 0.083% 2.5 Mg/3 Ml Neb Soln) 2.5 mg NEB Q2H PRN PRN Reason: Shortness Of Breath/wheezing Albuterol (Albuterol 6.7 Gm Inhaler) 0 gm INH DAILY NATALIE Last Admin: 07/02/21 08:30 Dose: 2 puff Documented by: Albuterol (Albuterol 6.7 Gm Inhaler) 0 gm INH Q4H PRN PRN Reason: Shortness of Breath Albuterol/Ipratropium (Albuterol/Ipratropium 3.0-0.5 Mg/3 Ml Neb Soln) 3 ml NEB Q4H PRN PRN Reason: Shortness Of Breath/wheezing Aspirin (Aspirin 81 Mg Tab.Ec) 81 mg PO BEDTIME [facility] Last Admin: 07/01/21 21:49 Dose: 81 mg Documented by: Bisacodyl (Bisacodyl 10 Mg Supp) 10 mg RECTAL DAILY PRN PRN Reason: Constipation Dexamethasone (Dexamethasone 10 Mg/Ml Sdv) 6 mg IVPUSH DAILY [facility] Stop: 07/10/21 09:01 Last Admin: 07/02/21 09:04 Dose: 6 mg Documented by: Digoxin (Digoxin 125 Mcg Tab) 125 mcg PO DAILY [facility] Last Admin: 07/02/21 09:05 Dose: 125 mcg Documented by: Ceftriaxone Sodium 2 gm/ (Sodium Chloride) 100 mls @ 200 mls/hr IV Q24H [facility] Stop: 07/05/21 16:29 Azithromycin 500 mg/ Sodium (Chloride) 250 mls @ 250 mls/hr IV Q24H [facility] Stop: 07/03/21 22:29 Last Admin: 07/01/21 21:50 Dose: 250 mls/hr Documented by: Sodium Chloride (Normal Saline) 1,000 mls @ 50 mls/hr IV ASDIRECTED [facility] Last Admin: 07/01/21 21:49 Dose: 50 mls/hr Documented by: Remdesivir 200 mg/ Sodium (Chloride) 250 mls @ 250 mls/hr IV ONETIME ONE Stop: 07/02/21 14:29 Remdesivir 100 mg/ Sodium (Chloride) 100 mls @ 100 mls/hr IV Q24H [facility] Stop: 07/06/21 14:29 Insulin Glargine (Insulin Glarg,Human.Rec.Analog 100 Unit/Ml) 10 unit SUBCUT DAILY [facility] Last Admin: 07/02/21 09:02 Dose: 10 units Documented by: Insulin Human Lispro (Insulin Lispro 100 Unit/Ml 10 Ml Vial) 0 unit SUBCUT Q IDACANDBED [facility]; Protocol Last Admin: 07/02/21 12:13 Dose: 4 units Documented by: Levothyroxine Sodium (Levothyroxine 25 Mcg Tab) 25 mcg PO ACBREAKFAST [facility] Last Admin: 07/02/21 06:26 Dose: 25 mcg Documented by: Metoprolol Tartrate (Metoprolol Tartrate 25 Mg Tab) 12.5 mg PO BID [facility] Last Admin: 07/02/21 09:08 Dose: 12.5 mg Documented by: Venlafaxine Hcl 100 (Mg Tablet Ptom) 0 mg PO DAILY [facility] Last Admin: 07/02/21 09:09 Dose: Not Given Documented by: Ondansetron HCl (Ondansetron 4 Mg/2 Ml Sdv) 4 mg IV Q6H PRN PRN Reason: Nausea/Vomiting Senna/Docusate Sodium (Docusate Sodium/Sennosides 50-8.6 Mg Tab) 2 tab PO BID [facility] Last Admin: 07/02/21 09:04 Dose: 2 tab Documented by: Senna/Docusate Sodium (Docusate Sodium/Sennosides 50-8.6 Mg Tab) 2 tab PO DAILY PRN PRN Reason: Constipation Sodium Chloride (Sodium Chloride 0.9% 10 Ml Syringe) 10 ml FLUSH ASDIRECTED PRN PRN Reason: Keep Vein Open Last Admin: 07/01/21 14:55 Dose: 10 ml Documented by: Warfarin Sodium (Pharmacy To Dose - Warfarin) 1 dose .XX ASDIRECTED PRN PRN Reason: RX TO DOSE WARFARIN Warfarin Sodium (Warfarin 5 Mg Tab) 5 mg PO QPM [facility] Stop: 07/02/21 18:01 Discontinued Medications Acetaminophen (Acetaminophen 650 Mg Supp) 650 mg RECTAL NOW ONE Stop: 07/01/21 15:06 Last Admin: 07/01/21 16:19 Dose: 650 mg Documented by: Dexamethasone (Dexamethasone 4 Mg/Ml Sdv) 6 mg IVPUSH ONETIME ONE Stop: 07/01/21 17:04 Last Admin: 07/01/21 17:23 Dose: 6 mg Documented by: Sodium Chloride (Normal Saline) 1,000 mls @ 125 mls/hr IV ASDIRECTED [facility] Last Admin: 07/01/21 16:26 Dose: 125 mls/hr Documented by: Ceftriaxone Sodium 2 gm/ (Sodium Chloride) 100 mls @ 200 mls/hr IV ONETIME ONE Stop: 07/01/21 16:49 Last Admin: 07/01/21 16:46 Dose: 200 mls/hr Documented by: Remdesivir 200 mg/ Sodium (Chloride) 250 mls @ 250 mls/hr IV ONETIME ONE Stop: 07/01/21 17:04 Last Admin: 07/01/21 19:15 Dose: Not Given Documented by: Magnesium Sulfate 2 gm/ Premix 50 mls @ 25 mls/hr IV ONETIME ONE Stop: 07/02/21 10:28 Last Admin: 07/02/21 09:02 Dose: 25 mls/hr Documented by: Influenza Virus Vaccine (Flu Vacc Fj1009(65up)/Mf59c/Pf 60 Mcg/0.5 Ml Syringe) 60 mcg IM .ONCE ONE Stop: 07/01/21 20:01 Warfarin Sodium (Warfarin 5 Mg Tab) 5 mg PO ONETIME ONE Stop: 07/01/21 23:01 Last Admin: 07/01/21 23:10 Dose: 5 mg Documented by: - Exam Quality Assessment: Supplemental Oxygen General: Alert. No: Oriented HEENT: Pupils Equal Neck: Supple Lungs: Normal Respiratory Effort, Crackles (Throughout both lung peace) Cardiovascular: Irregular Rhythm (Rate and rhythm) GI/Abdominal Exam: Normal Bowel Sounds, Soft, Non-Tender, No Distention Back Exam: Normal Inspection Extremities: Normal Inspection, Normal Range of Motion, No Pedal Edema, Normal Capillary Refill Skin: Warm, Dry, Intact Psy/Mental Status: Alert - Patient Data Lab Results Last 24 hrs: Laboratory Results - last 24 hr 07/01/21 07/01/21 07/01/21 Range/Units 14:55 14:55 14:55 WBC 8.10 (3.98-10.04) K/mm3 RBC 3.99 (3.98-5.22) M/mm3 Hgb 12.4 (11.2-15.7) gm/dl Hct 40.0 (34.1-44.9) % MCV 100.3 H (79.4-94.8) fl MCH 31.1 (25.6-32.2) pg MCHC 31.0 L (32.2-35.5) g/dl RDW Std Deviation 54.0 H (36.4-46.3) fL Plt Count 179 L (182-369) K/mm3 MPV 10.5 (9.4-12.3) fl Neut % (Auto) 71.1 (34.0-71.1) % Lymph % (Auto) 8.3 L (19.3-51.7) % [place] % (Auto) 19.3 H (4.7-12.5) % Eos % (Auto) 0.1 L (0.7-5.8) Baso % (Auto) 0.6 (0.1-1.2) % Neut # (Auto) 5.76 (1.56-6.13) K/mm3 Lymph # (Auto) 0.67 L (1.18-3.74) K/mm3 [place] # (Auto) 1.56 H (0.24-0.36) K/mm3 Eos # (Auto) 0.01 L (0.04-0.36) K/mm3 Baso # (Auto) 0.05 (0.01-0.08) K/mm3 Manual Slide Review Abnormal smear PT (9.7-12.0) SECONDS INR D-Dimer, Quantitative (0.19-0.50) mg/L Sodium 138 (136-145) mEq/L Potassium 4.1 (3.5-5.1) mEq/L Chloride 100 (98-107) mEq/L Carbon Dioxide 29 (21-32) mEq/L Anion Gap 13.1 (5-15) BUN 31 H (7-18) mg/dL Creatinine 2.0 H (0.55-1.02) mg/dL Est Cr Clr Drug Dosing TNP Estimated GFR (MDRD) 24 (>60) mL/min BUN/Creatinine Ratio 15.5 (14-18) Glucose 138 H (70-99) mg/dL POC Glucose (70-99) mg/dL Lactic Acid 2.3 H* (0.4-2.0) mmol/L Calcium 9.1 (8.5-10.1) mg/dL Phosphorus (2.6-4.7) mg/dL Magnesium (1.8-2.4) mg/dL Total Bilirubin 0.7 (0.2-1.0) mg/dL AST 27 (15-37) U/L ALT 23 (14-59) U/L Alkaline Phosphatase 34 L (46-116) U/L C-Reactive Protein 17.0 H* (<1.0) mg/dL NT-Pro-B Natriuret Pep (0-450) pg/mL Total Protein 7.6 (6.4-8.2) g/dl Albumin 3.1 L (3.4-5.0) g/dl Globulin 4.5 gm/dL Albumin/Globulin Ratio 0.7 L (1-2) Urine Color (Yellow) Urine Appearance (Clear) Urine pH (5.0-8.0) Ur Specific Pr[place] (1.005-1.030) Urine Protein (Negative) Urine Glucose (UA) (Negative) Urine Ketones (Negative) Urine Occult Blood (Negative) Urine Nitrite (Negative) Urine Bilirubin (Negative) Urine Urobilinogen (0.2-1.0) Ur Leukocyte Esterase (Negative) U Hyaline Cast (Auto) (0-5) /lpf Urine RBC (0-5) /hpf Urine WBC (0-5) /hpf Ur Squamous Epith Cells (0-5) /hpf Urine Bacteria (FEW) /hpf Urine Mucus (FEW) /hpf Digoxin (0.9-2.0) ng/mL SARS-CoV-2 RNA (JANE) (NEGATIVE) MRSA (PCR) 07/01/21 07/01/21 07/01/21 Range/Units 14:55 14:57 16:00 WBC (3.98-10.04) K/mm3 RBC (3.98-5.22) M/mm3 Hgb (11.2-15.7) gm/dl Hct (34.1-44.9) % MCV (79.4-94.8) fl MCH (25.6-32.2) pg MCHC (32.2-35.5) g/dl RDW Std Deviation (36.4-46.3) fL Plt Count (182-369) K/mm3 MPV (9.4-12.3) fl Neut % (Auto) (34.0-71.1) % Lymph % (Auto) (19.3-51.7) % [place] % (Auto) (4.7-12.5) % Eos % (Auto) (0.7-5.8) Baso % (Auto) (0.1-1.2) % Neut # (Auto) (1.56-6.13) K/mm3 Lymph # (Auto) (1.18-3.74) K/mm3 [place] # (Auto) (0.24-0.36) K/mm3 Eos # (Auto) (0.04-0.36) K/mm3 Baso # (Auto) (0.01-0.08) K/mm3 Manual Slide Review PT 16.1 H (9.7-12.0) SECONDS INR 1.47 D-Dimer, Quantitative (0.19-0.50) mg/L Sodium (136-145) mEq/L Potassium (3.5-5.1) mEq/L Chloride (98-107) mEq/L Carbon Dioxide (21-32) mEq/L Anion Gap (5-15) BUN (7-18) mg/dL Creatinine (0.55-1.02) mg/dL Est Cr Clr Drug Dosing Estimated GFR (MDRD) (>60) mL/min BUN/Creatinine Ratio (14-18) Glucose (70-99) mg/dL POC Glucose 138 H (70-99) mg/dL Lactic Acid (0.4-2.0) mmol/L Calcium (8.5-10.1) mg/dL Phosphorus (2.6-4.7) mg/dL Magnesium (1.8-2.4) mg/dL Total Bilirubin (0.2-1.0) mg/dL AST (15-37) U/L ALT (14-59) U/L Alkaline Phosphatase (46-116) U/L C-Reactive Protein (<1.0) mg/dL NT-Pro-B Natriuret Pep (0-450) pg/mL Total Protein (6.4-8.2) g/dl Albumin (3.4-5.0) g/dl Globulin gm/dL Albumin/Globulin Ratio (1-2) Urine Color (Yellow) Urine Appearance (Clear) Urine pH (5.0-8.0) Ur Specific [place] (1.005-1.030) Urine Protein (Negative) Urine Glucose (UA) (Negative) Urine Ketones (Negative) Urine Occult Blood (Negative) Urine Nitrite (Negative) Urine Bilirubin (Negative) Urine Urobilinogen (0.2-1.0) Ur Leukocyte Esterase (Negative) U Hyaline Cast (Auto) (0-5) /lpf Urine RBC (0-5) /hpf Urine WBC (0-5) /hpf Ur Squamous Epith Cells (0-5) /hpf Urine Bacteria (FEW) /hpf Urine Mucus (FEW) /hpf Digoxin (0.9-2.0) ng/mL SARS-CoV-2 RNA (JANE) Positive H (NEGATIVE) MRSA (PCR) 07/01/21 07/01/21 07/01/21 Range/Units 16:05 18:20 18:20 WBC (3.98-10.04) K/mm3 RBC (3.98-5.22) M/mm3 Hgb (11.2-15.7) gm/dl Hct (34.1-44.9) % MCV (79.4-94.8) fl MCH (25.6-32.2) pg MCHC (32.2-35.5) g/dl RDW Std Deviation (36.4-46.3) fL Plt Count (182-369) K/mm3 MPV (9.4-12.3) fl Neut % (Auto) (34.0-71.1) % Lymph % (Auto) (19.3-51.7) % [place] % (Auto) (4.7-12.5) % Eos % (Auto) (0.7-5.8) Baso % (Auto) (0.1-1.2) % Neut # (Auto) (1.56-6.13) K/mm3 Lymph # (Auto) (1.18-3.74) K/mm3 [place] # (Auto) (0.24-0.36) K/mm3 Eos # (Auto) (0.04-0.36) K/mm3 Baso # (Auto) (0.01-0.08) K/mm3 Manual Slide Review PT (9.7-12.0) SECONDS INR D-Dimer, Quantitative (0.19-0.50) mg/L Sodium (136-145) mEq/L Potassium (3.5-5.1) mEq/L Chloride (98-107) mEq/L Carbon Dioxide (21-32) mEq/L Anion Gap (5-15) BUN (7-18) mg/dL Creatinine (0.55-1.02) mg/dL Est Cr Clr Drug Dosing Estimated GFR (MDRD) (>60) mL/min BUN/Creatinine Ratio (14-18) Glucose (70-99) mg/dL POC Glucose (70-99) mg/dL Lactic Acid 1.0 (0.4-2.0) mmol/L Calcium (8.5-10.1) mg/dL Phosphorus (2.6-4.7) mg/dL Magnesium (1.8-2.4) mg/dL Total Bilirubin (0.2-1.0) mg/dL AST (15-37) U/L ALT (14-59) U/L Alkaline Phosphatase (46-116) U/L C-Reactive Protein (<1.0) mg/dL NT-Pro-B Natriuret Pep 567 H (0-450) pg/mL Total Protein (6.4-8.2) g/dl Albumin (3.4-5.0) g/dl Globulin gm/dL Albumin/Globulin Ratio (1-2) Urine Color Yellow (Yellow) Urine Appearance Clear (Clear) Urine pH 5.5 (5.0-8.0) Ur Specific [place] 1.025 (1.005-1.030) Urine Protein 1+ H (Negative) Urine Glucose (UA) Negative (Negative) Urine Ketones Trace H (Negative) Urine Occult Blood Negative (Negative) Urine Nitrite Negative (Negative) Urine Bilirubin Negative (Negative) Urine Urobilinogen 0.2 (0.2-1.0) Ur Leukocyte Esterase Negative (Negative) U Hyaline Cast (Auto) 0-5 (0-5) /lpf Urine RBC 0-5 (0-5) /hpf Urine WBC 0-5 (0-5) /hpf Ur Squamous Epith Cells Not seen (0-5) /hpf Urine Bacteria Few (FEW) /hpf Urine Mucus Not seen (FEW) /hpf Digoxin (0.9-2.0) ng/mL SARS-CoV-2 RNA (JANE) (NEGATIVE) MRSA (PCR) 07/01/21 07/01/21 07/02/21 Range/Units 18:30 22:00 06:31 WBC (3.98-10.04) K/mm3 RBC (3.98-5.22) M/mm3 Hgb (11.2-15.7) gm/dl Hct (34.1-44.9) % MCV (79.4-94.8) fl MCH (25.6-32.2) pg MCHC (32.2-35.5) g/dl RDW Std Deviation (36.4-46.3) fL Plt Count (182-369) K/mm3 MPV (9.4-12.3) fl Neut % (Auto) (34.0-71.1) % Lymph % (Auto) (19.3-51.7) % [place] % (Auto) (4.7-12.5) % Eos % (Auto) (0.7-5.8) Baso % (Auto) (0.1-1.2) % Neut # (Auto) (1.56-6.13) K/mm3 Lymph # (Auto) (1.18-3.74) K/mm3 [place] # (Auto) (0.24-0.36) K/mm3 Eos # (Auto) (0.04-0.36) K/mm3 Baso # (Auto) (0.01-0.08) K/mm3 Manual Slide Review PT (9.7-12.0) SECONDS INR D-Dimer, Quantitative (0.19-0.50) mg/L Sodium (136-145) mEq/L Potassium (3.5-5.1) mEq/L Chloride (98-107) mEq/L Carbon Dioxide (21-32) mEq/L Anion Gap (5-15) BUN (7-18) mg/dL Creatinine (0.55-1.02) mg/dL Est Cr Clr Drug Dosing Estimated GFR (MDRD) (>60) mL/min BUN/Creatinine Ratio (14-18) Glucose (70-99) mg/dL POC Glucose 190 H 230 H (70-99) mg/dL Lactic Acid (0.4-2.0) mmol/L Calcium (8.5-10.1) mg/dL Phosphorus (2.6-4.7) mg/dL Magnesium (1.8-2.4) mg/dL Total Bilirubin (0.2-1.0) mg/dL AST (15-37) U/L ALT (14-59) U/L Alkaline Phosphatase (46-116) U/L C-Reactive Protein (<1.0) mg/dL NT-Pro-B Natriuret Pep (0-450) pg/mL Total Protein (6.4-8.2) g/dl Albumin (3.4-5.0) g/dl Globulin gm/dL Albumin/Globulin Ratio (1-2) Urine Color (Yellow) Urine Appearance (Clear) Urine pH (5.0-8.0) Ur Specific Pratts (1.005-1.030) Urine Protein (Negative) Urine Glucose (UA) (Negative) Urine Ketones (Negative) Urine Occult Blood (Negative) Urine Nitrite (Negative) Urine Bilirubin (Negative) Urine Urobilinogen (0.2-1.0) Ur Leukocyte Esterase (Negative) U Hyaline Cast (Auto) (0-5) /lpf Urine RBC (0-5) /hpf Urine WBC (0-5) /hpf Ur Squamous Epith Cells (0-5) /hpf Urine Bacteria (FEW) /hpf Urine Mucus (FEW) /hpf Digoxin (0.9-2.0) ng/mL SARS-CoV-2 RNA (JANE) (NEGATIVE) MRSA (PCR) Negative 07/02/21 07/02/21 07/02/21 Range/Units 06:50 06:50 06:50 WBC 5.29 (3.98-10.04) K/mm3 RBC 3.62 L (3.98-5.22) M/mm3 Hgb 11.3 (11.2-15.7) gm/dl Hct 36.5 (34.1-44.9) % MCV 100.8 H (79.4-94.8) fl MCH 31.2 (25.6-32.2) pg MCHC 31.0 L (32.2-35.5) g/dl RDW Std Deviation 53.2 H (36.4-46.3) fL Plt Count 158 L (182-369) K/mm3 MPV 10.5 (9.4-12.3) fl Neut % (Auto) 61.6 (34.0-71.1) % Lymph % (Auto) 18.5 L (19.3-51.7) % [place] % (Auto) 19.5 H (4.7-12.5) % Eos % (Auto) 0 L (0.7-5.8) Baso % (Auto) 0.2 (0.1-1.2) % Neut # (Auto) 3.26 (1.56-6.13) K/mm3 Lymph # (Auto) 0.98 L (1.18-3.74) K/mm3 [place] # (Auto) 1.03 H (0.24-0.36) K/mm3 Eos # (Auto) 0.00 L (0.04-0.36) K/mm3 Baso # (Auto) 0.01 (0.01-0.08) K/mm3 Manual Slide Review PT 14.5 H (9.7-12.0) SECONDS INR 1.32 D-Dimer, Quantitative 0.35 (0.19-0.50) mg/L Sodium 140 (136-145) mEq/L Potassium 4.5 (3.5-5.1) mEq/L Chloride 102 (98-107) mEq/L Carbon Dioxide 26 (21-32) mEq/L Anion Gap 16.5 H (5-15) BUN 31 H (7-18) mg/dL Creatinine 1.6 H (0.55-1.02) mg/dL Est Cr Clr Drug Dosing 25.00 Estimated GFR (MDRD) 31 (>60) mL/min BUN/Creatinine Ratio 19.4 H (14-18) Glucose 238 H (70-99) mg/dL POC Glucose (70-99) mg/dL Lactic Acid (0.4-2.0) mmol/L Calcium 8.3 L (8.5-10.1) mg/dL Phosphorus 5.1 H (2.6-4.7) mg/dL Magnesium 1.5 L (1.8-2.4) mg/dL Total Bilirubin 0.4 (0.2-1.0) mg/dL AST 31 (15-37) U/L ALT 19 (14-59) U/L Alkaline Phosphatase 27 L (46-116) U/L C-Reactive Protein 16.2 H* (<1.0) mg/dL NT-Pro-B Natriuret Pep (0-450) pg/mL Total Protein 6.6 (6.4-8.2) g/dl Albumin 2.6 L (3.4-5.0) g/dl Globulin 4.0 gm/dL Albumin/Globulin Ratio 0.7 L (1-2) Urine Color (Yellow) Urine Appearance (Clear) Urine pH (5.0-8.0) Ur Specific [place] (1.005-1.030) Urine Protein (Negative) Urine Glucose (UA) (Negative) Urine Ketones (Negative) Urine Occult Blood (Negative) Urine Nitrite (Negative) Urine Bilirubin (Negative) Urine Urobilinogen (0.2-1.0) Ur Leukocyte Esterase (Negative) U Hyaline Cast (Auto) (0-5) /lpf Urine RBC (0-5) /hpf Urine WBC (0-5) /hpf Ur Squamous Epith Cells (0-5) /hpf Urine Bacteria (FEW) /hpf Urine Mucus (FEW) /hpf Digoxin 0.9 (0.9-2.0) ng/mL SARS-CoV-2 RNA (JANE) (NEGATIVE) MRSA (PCR) 07/02/21 Range/Units 11:39 WBC (3.98-10.04) K/mm3 RBC (3.98-5.22) M/mm3 Hgb (11.2-15.7) gm/dl Hct (34.1-44.9) % MCV (79.4-94.8) fl MCH (25.6-32.2) pg MCHC (32.2-35.5) g/dl RDW Std Deviation (36.4-46.3) fL Plt Count (182-369) K/mm3 MPV (9.4-12.3) fl Neut % (Auto) (34.0-71.1) % Lymph % (Auto) (19.3-51.7) % [place] % (Auto) (4.7-12.5) % Eos % (Auto) (0.7-5.8) Baso % (Auto) (0.1-1.2) % Neut # (Auto) (1.56-6.13) K/mm3 Lymph # (Auto) (1.18-3.74) K/mm3 [place] # (Auto) (0.24-0.36) K/mm3 Eos # (Auto) (0.04-0.36) K/mm3 Baso # (Auto) (0.01-0.08) K/mm3 Manual Slide Review PT (9.7-12.0) SECONDS INR D-Dimer, Quantitative (0.19-0.50) mg/L Sodium (136-145) mEq/L Potassium (3.5-5.1) mEq/L Chloride (98-107) mEq/L Carbon Dioxide (21-32) mEq/L Anion Gap (5-15) BUN (7-18) mg/dL Creatinine (0.55-1.02) mg/dL Est Cr Clr Drug Dosing Estimated GFR (MDRD) (>60) mL/min BUN/Creatinine Ratio (14-18) Glucose (70-99) mg/dL POC Glucose 227 H (70-99) mg/dL Lactic Acid (0.4-2.0) mmol/L Calcium (8.5-10.1) mg/dL Phosphorus (2.6-4.7) mg/dL Magnesium (1.8-2.4) mg/dL Total Bilirubin (0.2-1.0) mg/dL AST (15-37) U/L ALT (14-59) U/L Alkaline Phosphatase (46-116) U/L C-Reactive Protein (<1.0) mg/dL NT-Pro-B Natriuret Pep (0-450) pg/mL Total Protein (6.4-8.2) g/dl Albumin (3.4-5.0) g/dl Globulin gm/dL Albumin/Globulin Ratio (1-2) Urine Color (Yellow) Urine Appearance (Clear) Urine pH (5.0-8.0) Ur Specific [place] (1.005-1.030) Urine Protein (Negative) Urine Glucose (UA) (Negative) Urine Ketones (Negative) Urine Occult Blood (Negative) Urine Nitrite (Negative) Urine Bilirubin (Negative) Urine Urobilinogen (0.2-1.0) Ur Leukocyte Esterase (Negative) U Hyaline Cast (Auto) (0-5) /lpf Urine RBC (0-5) /hpf Urine WBC (0-5) /hpf Ur Squamous Epith Cells (0-5) /hpf Urine Bacteria (FEW) /hpf Urine Mucus (FEW) /hpf Digoxin (0.9-2.0) ng/mL SARS-CoV-2 RNA (JANE) (NEGATIVE) MRSA (PCR) Result Diagrams: 07/02/21 06:50 07/02/21 06:50 Greg Results Last 24 hrs: Microbiology 07/01/21 16:00 Influenza Type A Antigen Screen - Final Nasopharyngeal Swab - Nare, Unspecified NEGATIVE INFLUENZA A VIRUS AG REFERENCE RANGE: NEGATIVE Influenza Type B Antigen Screen - Final NEGATIVE INFLUENZA B VIRUS AG REFERENCE RANGE: NEGATIVE Sepsis Event Note - Evaluation Sepsis Screening Result: No Definite Risk - Focused Exam Vital Signs: Vital Signs Temp Pulse Resp BP BP Pulse Ox Pulse Ox 07/02/21 11:35 97.9 F 62 17 91 L 07/02/21 11:00 145/86 H 07/02/21 09:08 63 104/57 L 07/02/21 09:07 98.6 F 63 19 104/57 L 94 L 07/02/21 09:05 63 07/02/21 08:31 94 L 07/02/21 05:31 93 L 07/02/21 04:08 98.4 F 75 18 136/66 93 L 07/02/21 00:40 99.3 F 69 14 132/70 92 L - Problem List & Annotations (1) Pneumonia due to COVID-19 virus SNOMED Code(s): 000504115175568370 Code(s): U07.1 - COVID-19; J12.82 - PNEUMONIA DUE TO CORONAVIRUS DISEASE 2019 Status: Acute Current Visit: Yes (2) Insulin dependent diabetes mellitus SNOMED Code(s): 71907921 Code(s): HIN3064 - Status: Acute Current Visit: Yes (3) Acute on chronic renal insufficiency SNOMED Code(s): 772208844 Code(s): N28.9 - DISORDER OF KIDNEY AND URETER, UNSPECIFIED; N18.9 - CHRONIC KIDNEY DISEASE, UNSPECIFIED Status: Acute Current Visit: Yes (4) Atrial fibrillation SNOMED Code(s): 40378781 Code(s): I48.91 - UNSPECIFIED ATRIAL FIBRILLATION Status: Acute Current Visit: Yes - Problem List Review Problem List Initiated/Reviewed/Updated: Yes - My Orders Last 24 Hours: My Active Orders 07/01/21 19:09 Vaccine to be Administered/Admin Charge [RC] ASDIRECTED 07/01/21 20:51 Oxygen Therapy [RC] PRN RT Incentive Spirometry [RC] ASDIRECTED Up With Assistance [RC] ASDIRECTED VTE/DVT Education [RC] PER UNIT ROUTINE Vital Signs [RC] Q4H PT Evaluation and Treatment [CONS] Routine Acetaminophen [TylenoL] 650 mg PO Q4H PRN Acetaminophen [Tylenol] 650 mg RECTAL Q4H PRN Albuterol [Proventil Neb Soln] 2.5 mg NEB Q2H PRN Albuterol/Ipratropium [DuoNeb 3.0-0.5 MG/3 ML] 3 ml NEB Q4H PRN Ondansetron [Zofran] 4 mg IV Q6H PRN Isolation [COMM] Stat RT Acapella [RESPCARE] Routine Resuscitation Status Routine 07/01/21 20:54 RT Aerosol Therapy [RC] ASDIRECTED 07/01/21 20:58 Albuterol [Proventil HFA] 0 gm INH Q4H PRN Docusate Sodium/Sennosides [Senna Plus] 2 tab PO DAILY PRN bisacodyL [Dulcolax] 10 mg RECTAL DAILY PRN 07/01/21 21:00 Docusate Sodium/Sennosides [Senna Plus] 2 tab PO BID Metoprolol Tartrate [Lopressor] 12.5 mg PO BID Pharmacy to Dose - Warfarin 1 dose .XX ASDIRECTED PRN 07/01/21 21:05 Blood Glucose Check, Bedside [RC] QIDACANDBED 07/01/21 21:15 Aspirin [Halfprin] 81 mg PO BEDTIME Sodium Chloride 0.9% [Normal Saline] 1,000 ml IV ASDIRECTED 07/01/21 21:30 Azithromycin [Zithromax] 500 mg Sodium Chloride 0.9% [Normal Saline (AdvBag)] 250 ml IV Q24H 07/01/21 22:00 Insulin Lispro [HumaLOG] See Protocol SUBCUT QIDACANDBED 07/02/21 06:00 Levothyroxine 25 mcg PO ACBREAKFAST 07/02/21 09:00 Albuterol [Proventil HFA] 0 gm INH DAILY Digoxin [Lanoxin] 125 mcg PO DAILY Insulin Glarg,Human.Rec.Analog [LantUS] 10 unit SUBCUT DAILY Venlafaxine HCl [Venlafaxine HCl] 0 mg PO DAILY dexAMETHasone [Decadron] 6 mg IVPUSH DAILY 07/02/21 Lunch Soft Diet [DIET] 07/02/21 12:16 Remdesivir 200 mg Sodium Chloride 0.9% [Normal Saline] 250 ml IV ONETIME 07/02/21 12:24 GLYCOSYLATED HEMOGLOBIN,HGBA1C [CHEM] Routine 07/02/21 12:29 PROCALCITONIN [REF] Routine 07/02/21 16:00 cefTRIAXone [Rocephin] 2 gm Sodium Chloride 0.9% [Normal Saline] 100 ml IV Q24H 07/02/21 18:00 Warfarin [Coumadin] 5 mg PO QPM 07/03/21 05:11 INR,PT,PROTHROMBIN TIME [COAG] AM 07/03/21 12:30 Remdesivir 100 mg Sodium Chloride 0.9% [Normal Saline] 100 ml IV Q24H 07/04/21 05:11 INR,PT,PROTHROMBIN TIME [COAG] AM 07/05/21 05:11 INR,PT,PROTHROMBIN TIME [COAG] AM 07/06/21 05:11 INR,PT,PROTHROMBIN TIME [COAG] AM 07/07/21 05:11 INR,PT,PROTHROMBIN TIME [COAG] AM - Plan Plan:: 86-year-old female with Alzheimer's dementia, atrial fibrillation, psychotic disorder with delusions due to known physiological condition, abnormalities of gait, dysphagia unspecified, borderline intellectual functioning, unspecified psychosis, atrial fibrillation with use of warfarin, diabetes mellitus on insulin, chronic kidney disease, hypertension, sick sinus syndrome with pacemaker, venous insufficiency, gastroesophageal reflux disease, history of pressure ulcer of right buttock stage III but not current presents to emergency department with altered mental status, hypoxia due to COVID-19 pneumonia. Respiratory failure secondary to COVID-19 pneumonia Altered mental status * Requiring 2 L nasal cannula overnight * Renal function has improved we can start remdesivir * Temperature on arrival of 101.6 * Afebrile overnight * Altered mental status significantly improved * White count decreased to 5.3, platelets decreased to 158, CRP is down to 16.2, * Elevated BNP may be secondary to CHF versus renal insufficiency * Received Covid vaccination * On dexamethasone Alzheimer's dementia * Patient's baseline mental functioning is reduced because of her history of psychosis and Alzheimer's dementia. * Improved communication today Atrial fibrillation on warfarin Subtherapeutic INR * INR is subtherapeutic at 1.47--> 1.32 * Rate is controlled on home medications * digoxin 0.9 Insulin-dependent diabetes mellitus * No hemoglobin A1c * MAR says she is on 14 units of short acting insulin at meals and 18 units of Lantus daily Acute renal failure on chronic * GFR increased to above 30 with a creatinine of 1.6 * Initial GFR less than 30 therefore remdesivir was not started last night * Renal function high enough to be able to start remdesivir * No recent baseline renal function available * Started on fluids in the emergency department Hypertension/sick sinus syndrome with pacemaker * Monitor blood pressure and heart rate closely Plan * Admit patient to the floor on strict isolation * Continue IV fluids * Continue azithromycin and ceftriaxone * Start remdesivir * Follow Covid labs to include CBC, CMP, mag, Phos, CRP, D-dimer * Get procalcitonin * Pharmacy to dose warfarin * Daily INR * With improving mentation advance diet. We will need to find what is the [facility]. * Lantus 10 units daily. This will likely need to be increased tonight or tomorrow morning; sliding scale scale insulin; consider prandial blood sugars if taking p.o. well * Hemoglobin A1c pending * Renally adjust medications * VTE prophylaxis with Lovenox * CODE STATUS: Full code; I spoke with son in regards to her CODE STATUS. I explained to him that if she gets intubated or coded that she would not likely survive.
[2021-07-02 13:22] LABS: HEMOGLOBIN A1C 8.5 %
[2021-07-02] MEDS ORDERED: REMDESIVIR 200 MG in Sodium Chloride 0.9% 250 ML IV ONE (13:30)
[2021-07-02] MEDS: cefTRIAXone 2 GM in Sodium Chloride 0.9% 100 ML IV SCH (15:52)
[2021-07-02] MEDS ORDERED: Warfarin 5 MG Tab PO SCH (18:00)
[2021-07-02] MEDS: Aspirin 81 MG Tab.EC PO SCH (20:26)
[2021-07-02] MEDS: Azithromycin 500 MG in Sodium Chloride 0.9% 250 ML IV SCH ×2 (20:28→20:53)
[2021-07-03] MEDS: Levothyroxine 25 MCG Tab PO SCH (05:54)
[2021-07-03] MEDS: Albuterol 6.7 GM Inhaler INH PRN ×2 (06:47→15:20)
[2021-07-03] MEDS: Insulin Lispro 100 UNIT/ML 10 ML Vial SUBCUT SCH ×4 (07:59→22:02)
[2021-07-03] MEDS: Insulin Glarg,Human.Rec.Analog 100 Unit/ML SUBCUT SCH (07:59)
[2021-07-03] MEDS: Metoprolol Tartrate 25 MG Tab PO SCH ×2 (08:00→20:45)
[2021-07-03] MEDS: Digoxin 125 MCG Tab PO SCH (08:00)
[2021-07-03] MEDS: Dexamethasone 10 MG/ML SDV IVPUSH SCH (08:01)
[2021-07-03] MEDS: VENLAFAXINE HCL 100 MG PO SCH (08:01)
[2021-07-03] MEDS: Albuterol 6.7 GM Inhaler INH SCH (08:42)
--- NOTE | 2021-07-03 11:07 | PCM.PN ---
- General Info Date of Service: 07/03/21 Admission Dx/Problem (Free Text): Admission Diagnosis/Problem Admission Diagnosis/Problem Hypoxia Subjective Update: 86-year-old admitted with COVID-19 pneumonia. Patient is much more alert today. She has been weaned down to 0.5 to 1 L/min nasal cannula Functional Status: Reports: Pain Controlled - Review of Systems General: Reports: No Symptoms HEENT: Reports: No Symptoms Pulmonary: Reports: No Symptoms Cardiovascular: Reports: No Symptoms Gastrointestinal: Reports: No Symptoms Musculoskeletal: Reports: No Symptoms - Patient Data Vitals - Most Recent: Last Vital Signs Temp 97.5 F 07/03/21 07:11 Pulse 67 07/03/21 08:00 Resp 18 07/03/21 07:11 BP 140/92 H 07/03/21 08:00 Pulse Ox 94 L 07/03/21 08:43 Weight - Most Recent: 232 lb 1.6 oz I&O - Last 24 Hours: Intake & Output 07/02/21 07/03/21 07/03/21 22:59 06:59 14:59 Intake Total 1160 550 Balance 1160 550 Lab Results Last 24 Hours: Laboratory Results - last 24 hr 07/02/21 07/02/21 07/02/21 Range/Units 06:50 11:39 12:00 WBC (3.98-10.04) K/mm3 RBC (3.98-5.22) M/mm3 Hgb (11.2-15.7) gm/dl Hct (34.1-44.9) % MCV (79.4-94.8) fl MCH (25.6-32.2) pg MCHC (32.2-35.5) g/dl RDW Std Deviation (36.4-46.3) fL Plt Count (182-369) K/mm3 MPV (9.4-12.3) fl Neut % (Auto) (34.0-71.1) % Lymph % (Auto) (19.3-51.7) % [place] % (Auto) (4.7-12.5) % Eos % (Auto) (0.7-5.8) Baso % (Auto) (0.1-1.2) % Neut # (Auto) (1.56-6.13) K/mm3 Lymph # (Auto) (1.18-3.74) K/mm3 [place] # (Auto) (0.24-0.36) K/mm3 Eos # (Auto) (0.04-0.36) K/mm3 Baso # (Auto) (0.01-0.08) K/mm3 PT (9.7-12.0) SECONDS INR Sodium (136-145) mEq/L Potassium (3.5-5.1) mEq/L Chloride (98-107) mEq/L Carbon Dioxide (21-32) mEq/L Anion Gap (5-15) BUN (7-18) mg/dL Creatinine (0.55-1.02) mg/dL Est Cr Clr Drug Dosing mL/min Estimated GFR (MDRD) (>60) mL/min BUN/Creatinine Ratio (14-18) Glucose (70-99) mg/dL POC Glucose 227 H (70-99) mg/dL Hemoglobin A1c 8.5 H ( - 5.6) % Calcium (8.5-10.1) mg/dL Phosphorus (2.6-4.7) mg/dL Magnesium (1.8-2.4) mg/dL Total Bilirubin (0.2-1.0) mg/dL AST (15-37) U/L ALT (14-59) U/L Alkaline Phosphatase (46-116) U/L C-Reactive Protein (<1.0) mg/dL Total Protein (6.4-8.2) g/dl Albumin (3.4-5.0) g/dl Globulin gm/dL Albumin/Globulin Ratio (1-2) Procalcitonin 1.04 H ng/mL 07/02/21 07/02/21 07/03/21 Range/Units 16:38 20:36 05:52 WBC (3.98-10.04) K/mm3 RBC (3.98-5.22) M/mm3 Hgb (11.2-15.7) gm/dl Hct (34.1-44.9) % MCV (79.4-94.8) fl MCH (25.6-32.2) pg MCHC (32.2-35.5) g/dl RDW Std Deviation (36.4-46.3) fL Plt Count (182-369) K/mm3 MPV (9.4-12.3) fl Neut % (Auto) (34.0-71.1) % Lymph % (Auto) (19.3-51.7) % [place] % (Auto) (4.7-12.5) % Eos % (Auto) (0.7-5.8) Baso % (Auto) (0.1-1.2) % Neut # (Auto) (1.56-6.13) K/mm3 Lymph # (Auto) (1.18-3.74) K/mm3 [place] # (Auto) (0.24-0.36) K/mm3 Eos # (Auto) (0.04-0.36) K/mm3 Baso # (Auto) (0.01-0.08) K/mm3 PT (9.7-12.0) SECONDS INR Sodium (136-145) mEq/L Potassium (3.5-5.1) mEq/L Chloride (98-107) mEq/L Carbon Dioxide (21-32) mEq/L Anion Gap (5-15) BUN (7-18) mg/dL Creatinine (0.55-1.02) mg/dL Est Cr Clr Drug Dosing mL/min Estimated GFR (MDRD) (>60) mL/min BUN/Creatinine Ratio (14-18) Glucose (70-99) mg/dL POC Glucose 309 H 348 H 223 H (70-99) mg/dL Hemoglobin A1c ( - 5.6) % Calcium (8.5-10.1) mg/dL Phosphorus (2.6-4.7) mg/dL Magnesium (1.8-2.4) mg/dL Total Bilirubin (0.2-1.0) mg/dL AST (15-37) U/L ALT (14-59) U/L Alkaline Phosphatase (46-116) U/L C-Reactive Protein (<1.0) mg/dL Total Protein (6.4-8.2) g/dl Albumin (3.4-5.0) g/dl Globulin gm/dL Albumin/Globulin Ratio (1-2) Procalcitonin ng/mL 07/03/21 07/03/21 07/03/21 Range/Units 06:30 06:30 06:30 WBC 5.36 (3.98-10.04) K/mm3 RBC 3.89 L (3.98-5.22) M/mm3 Hgb 12.0 (11.2-15.7) gm/dl Hct 39.2 (34.1-44.9) % MCV 100.8 H (79.4-94.8) fl MCH 30.8 (25.6-32.2) pg MCHC 30.6 L (32.2-35.5) g/dl RDW Std Deviation 52.8 H (36.4-46.3) fL Plt Count 150 L (182-369) K/mm3 MPV 10.0 (9.4-12.3) fl Neut % (Auto) 56.3 (34.0-71.1) % Lymph % (Auto) 26.3 (19.3-51.7) % [place] % (Auto) 16.6 H (4.7-12.5) % Eos % (Auto) 0.2 L (0.7-5.8) Baso % (Auto) 0.2 (0.1-1.2) % Neut # (Auto) 3.02 (1.56-6.13) K/mm3 Lymph # (Auto) 1.41 (1.18-3.74) K/mm3 [place] # (Auto) 0.89 H (0.24-0.36) K/mm3 Eos # (Auto) 0.01 L (0.04-0.36) K/mm3 Baso # (Auto) 0.01 (0.01-0.08) K/mm3 PT 14.7 H (9.7-12.0) SECONDS INR 1.34 Sodium 140 (136-145) mEq/L Potassium 4.3 (3.5-5.1) mEq/L Chloride 104 (98-107) mEq/L Carbon Dioxide 27 (21-32) mEq/L Anion Gap 13.3 (5-15) BUN 35 H (7-18) mg/dL Creatinine 1.4 H (0.55-1.02) mg/dL Est Cr Clr Drug Dosing 27.50 mL/min Estimated GFR (MDRD) 36 (>60) mL/min BUN/Creatinine Ratio 25.0 H (14-18) Glucose 248 H (70-99) mg/dL POC Glucose (70-99) mg/dL Hemoglobin A1c ( - 5.6) % Calcium 8.3 L (8.5-10.1) mg/dL Phosphorus 3.2 (2.6-4.7) mg/dL Magnesium 1.8 (1.8-2.4) mg/dL Total Bilirubin 0.2 (0.2-1.0) mg/dL AST 34 (15-37) U/L ALT 19 (14-59) U/L Alkaline Phosphatase 28 L (46-116) U/L C-Reactive Protein 13.3 H* (<1.0) mg/dL Total Protein 6.8 (6.4-8.2) g/dl Albumin 2.6 L (3.4-5.0) g/dl Globulin 4.2 gm/dL Albumin/Globulin Ratio 0.6 L (1-2) Procalcitonin ng/mL 07/03/21 Range/Units 10:01 WBC (3.98-10.04) K/mm3 RBC (3.98-5.22) M/mm3 Hgb (11.2-15.7) gm/dl Hct (34.1-44.9) % MCV (79.4-94.8) fl MCH (25.6-32.2) pg MCHC (32.2-35.5) g/dl RDW Std Deviation (36.4-46.3) fL Plt Count (182-369) K/mm3 MPV (9.4-12.3) fl Neut % (Auto) (34.0-71.1) % Lymph % (Auto) (19.3-51.7) % [place] % (Auto) (4.7-12.5) % Eos % (Auto) (0.7-5.8) Baso % (Auto) (0.1-1.2) % Neut # (Auto) (1.56-6.13) K/mm3 Lymph # (Auto) (1.18-3.74) K/mm3 [place] # (Auto) (0.24-0.36) K/mm3 Eos # (Auto) (0.04-0.36) K/mm3 Baso # (Auto) (0.01-0.08) K/mm3 PT (9.7-12.0) SECONDS INR Sodium (136-145) mEq/L Potassium (3.5-5.1) mEq/L Chloride (98-107) mEq/L Carbon Dioxide (21-32) mEq/L Anion Gap (5-15) BUN (7-18) mg/dL Creatinine (0.55-1.02) mg/dL Est Cr Clr Drug Dosing mL/min Estimated GFR (MDRD) (>60) mL/min BUN/Creatinine Ratio (14-18) Glucose (70-99) mg/dL POC Glucose 311 H (70-99) mg/dL Hemoglobin A1c ( - 5.6) % Calcium (8.5-10.1) mg/dL Phosphorus (2.6-4.7) mg/dL Magnesium (1.8-2.4) mg/dL Total Bilirubin (0.2-1.0) mg/dL AST (15-37) U/L ALT (14-59) U/L Alkaline Phosphatase (46-116) U/L C-Reactive Protein (<1.0) mg/dL Total Protein (6.4-8.2) g/dl Albumin (3.4-5.0) g/dl Globulin gm/dL Albumin/Globulin Ratio (1-2) Procalcitonin ng/mL Med Orders - Current: Current Medications Acetaminophen (Acetaminophen 650 Mg Supp) 650 mg RECTAL Q4H PRN PRN Reason: Pain (mild 1-3) Acetaminophen (Acetaminophen 325 Mg Tab) 650 mg PO Q4H PRN PRN Reason: Pain (Mild 1-3)/fever Albuterol (Albuterol 0.083% 2.5 Mg/3 Ml Neb Soln) 2.5 mg NEB Q2H PRN PRN Reason: Shortness Of Breath/wheezing Albuterol (Albuterol 6.7 Gm Inhaler) 0 gm INH DAILY NATALIE Last Admin: 07/03/21 08:42 Dose: 2 puff Documented by: Albuterol (Albuterol 6.7 Gm Inhaler) 0 gm INH Q4H PRN PRN Reason: Shortness of Breath Last Admin: 07/03/21 06:47 Dose: 2 puff Documented by: Albuterol/Ipratropium (Albuterol/Ipratropium 3.0-0.5 Mg/3 Ml Neb Soln) 3 ml NEB Q4H PRN PRN Reason: Shortness Of Breath/wheezing Aspirin (Aspirin 81 Mg Tab.Ec) 81 mg PO BEDTIME [facility] Last Admin: 07/02/21 20:26 Dose: 81 mg Documented by: Bisacodyl (Bisacodyl 10 Mg Supp) 10 mg RECTAL DAILY PRN PRN Reason: Constipation Dexamethasone (Dexamethasone 10 Mg/Ml Sdv) 6 mg IVPUSH DAILY [facility] Stop: 07/10/21 09:01 Last Admin: 07/03/21 08:01 Dose: 6 mg Documented by: Digoxin (Digoxin 125 Mcg Tab) 125 mcg PO DAILY [facility] Last Admin: 07/03/21 08:00 Dose: 125 mcg Documented by: Ceftriaxone Sodium 2 gm/ (Sodium Chloride) 100 mls @ 200 mls/hr IV Q24H [facility] Stop: 07/05/21 16:29 Last Admin: 07/02/21 15:52 Dose: 200 mls/hr Documented by: Azithromycin 500 mg/ Sodium (Chloride) 250 mls @ 250 mls/hr IV Q24H [facility] Stop: 07/03/21 22:29 Last Admin: 07/02/21 20:53 Dose: Not Given Documented by: Remdesivir 100 mg/ Sodium (Chloride) 100 mls @ 100 mls/hr IV Q24H [facility] Stop: 07/06/21 14:29 Insulin Glargine (Insulin Glarg,Human.Rec.Analog 100 Unit/Ml) 10 unit SUBCUT DAILY [facility] Last Admin: 07/03/21 07:59 Dose: 10 units Documented by: Insulin Human Lispro (Insulin Lispro 100 Unit/Ml 10 Ml Vial) 0 unit SUBCUT QIDACANDBED [facility]; Protocol Last Admin: 07/03/21 07:59 Dose: 4 units Documented by: Levothyroxine Sodium (Levothyroxine 25 Mcg Tab) 25 mcg PO ACBREAKFAST [facility] Last Admin: 07/03/21 05:54 Dose: 25 mcg Documented by: Metoprolol Tartrate (Metoprolol Tartrate 25 Mg Tab) 12.5 mg PO BID [facility] Last Admin: 07/03/21 08:00 Dose: 12.5 mg Documented by: Venlafaxine Hcl 100 (Mg Tablet Ptom) 0 mg PO DAILY [facility] Last Admin: 07/03/21 08:01 Dose: Not Given Documented by: Ondansetron HCl (Ondansetron 4 Mg/2 Ml Sdv) 4 mg IV Q6H PRN PRN Reason: Nausea/Vomiting Senna/Docusate Sodium (Docusate Sodium/Sennosides 50-8.6 Mg Tab) 2 tab PO BID [facility] Last Admin: 07/03/21 08:00 Dose: 2 tab Documented by: Senna/Docusate Sodium (Docusate Sodium/Sennosides 50-8.6 Mg Tab) 2 tab PO DAILY PRN PRN Reason: Constipation Sodium Chloride (Sodium Chloride 0.9% 10 Ml Syringe) 10 ml FLUSH ASDIRECTED PRN PRN Reason: Keep Vein Open Last Admin: 07/01/21 14:55 Dose: 10 ml Documented by: Warfarin Sodium (Pharmacy To Dose - Warfarin) 1 dose .XX ASDIRECTED PRN PRN Reason: RX TO DOSE WARFARIN Warfarin Sodium (Warfarin 7.5 Mg Tab) 7.5 mg PO QPM [facility] Stop: 07/03/21 18:01 Discontinued Medications Acetaminophen (Acetaminophen 650 Mg Supp) 650 mg RECTAL NOW ONE Stop: 07/01/21 15:06 Last Admin: 07/01/21 16:19 Dose: 650 mg Documented by: Dexamethasone (Dexamethasone 4 Mg/Ml Sdv) 6 mg IVPUSH ONETIME ONE Stop: 07/01/21 17:04 Last Admin: 07/01/21 17:23 Dose: 6 mg Documented by: Sodium Chloride (Normal Saline) 1,000 mls @ 125 mls/hr IV ASDIRECTED [facility] Last Admin: 07/01/21 16:26 Dose: 125 mls/hr Documented by: Ceftriaxone Sodium 2 gm/ (Sodium Chloride) 100 mls @ 200 mls/hr IV ONETIME ONE Stop: 07/01/21 16:49 Last Admin: 07/01/21 16:46 Dose: 200 mls/hr Documented by: Remdesivir 200 mg/ Sodium (Chloride) 250 mls @ 250 mls/hr IV ONETIME ONE Stop: 07/01/21 17:04 Last Admin: 07/01/21 19:15 Dose: Not Given Documented by: Sodium Chloride (Normal Saline) 1,000 mls @ 50 mls/hr IV ASDIRECTED [facility] Last Admin: 07/01/21 21:49 Dose: 50 mls/hr Documented by: Magnesium Sulfate 2 gm/ Premix 50 mls @ 25 mls/hr IV ONETIME ONE Stop: 07/02/21 10:28 Last Admin: 07/02/21 09:02 Dose: 25 mls/hr Documented by: Remdesivir 200 mg/ Sodium (Chloride) 250 mls @ 250 mls/hr IV ONETIME ONE Stop: 07/02/21 14:29 Last Admin: 07/02/21 13:35 Dose: 250 mls/hr Documented by: Influenza Virus Vaccine (Flu Vacc [id number](65up)/Mf59c/Pf 60 Mcg/0.5 Ml Syringe) 60 mcg IM .ONCE ONE Stop: 07/01/21 20:01 Warfarin Sodium (Warfarin 5 Mg Tab) 5 mg PO ONETIME ONE Stop: 07/01/21 23:01 Last Admin: 07/01/21 23:10 Dose: 5 mg Documented by: Warfarin Sodium (Warfarin 5 Mg Tab) 5 mg PO QPM [facility] Stop: 07/02/21 18:01 Last Admin: 07/02/21 17:21 Dose: 5 mg Documented by: - Exam Quality Assessment: Supplemental Oxygen General: Alert HEENT: Pupils Equal, Mucous Membr. Moist/[place] Neck: Supple Lungs: Normal Respiratory Effort, Crackles (Bibasilar) Cardiovascular: Regular Rate, Regular Rhythm GI/Abdominal Exam: Normal Bowel Sounds, Soft, Non-Tender, No Distention Extremities: Normal Inspection, Normal Range of Motion, No Pedal Edema, Normal Capillary Refill Skin: Warm, Dry, Intact Psy/Mental Status: Alert, Normal Affect, Normal Mood - Patient Data Lab Results Last 24 hrs: Laboratory Results - last 24 hr 07/02/21 07/02/21 07/02/21 Range/Units 06:50 11:39 12:00 WBC (3.98-10.04) K/mm3 RBC (3.98-5.22) M/mm3 Hgb (11.2-15.7) gm/dl Hct (34.1-44.9) % MCV (79.4-94.8) fl MCH (25.6-32.2) pg MCHC (32.2-35.5) g/dl RDW Std Deviation (36.4-46.3) fL Plt Count (182-369) K/mm3 MPV (9.4-12.3) fl Neut % (Auto) (34.0-71.1) % Lymph % (Auto) (19.3-51.7) % [place] % (Auto) (4.7-12.5) % Eos % (Auto) (0.7-5.8) Baso % (Auto) (0.1-1.2) % Neut # (Auto) (1.56-6.13) K/mm3 Lymph # (Auto) (1.18-3.74) K/mm3 [place] # (Auto) (0.24-0.36) K/mm3 Eos # (Auto) (0.04-0.36) K/mm3 Baso # (Auto) (0.01-0.08) K/mm3 PT (9.7-12.0) SECONDS INR Sodium (136-145) mEq/L Potassium (3.5-5.1) mEq/L Chloride (98-107) mEq/L Carbon Dioxide (21-32) mEq/L Anion Gap (5-15) BUN (7-18) mg/dL Creatinine (0.55-1.02) mg/dL Est Cr Clr Drug Dosing mL/min Estimated GFR (MDRD) (>60) mL/min BUN/Creatinine Ratio (14-18) Glucose (70-99) mg/dL POC Glucose 227 H (70-99) mg/dL Hemoglobin A1c 8.5 H ( - 5.6) % Calcium (8.5-10.1) mg/dL Phosphorus (2.6-4.7) mg/dL Magnesium (1.8-2.4) mg/dL Total Bilirubin (0.2-1.0) mg/dL AST (15-37) U/L ALT (14-59) U/L Alkaline Phosphatase (46-116) U/L C-Reactive Protein (<1.0) mg/dL Total Protein (6.4-8.2) g/dl Albumin (3.4-5.0) g/dl Globulin gm/dL Albumin/Globulin Ratio (1-2) Procalcitonin 1.04 H ng/mL 07/02/21 07/02/21 07/03/21 Range/Units 16:38 20:36 05:52 WBC (3.98-10.04) K/mm3 RBC (3.98-5.22) M/mm3 Hgb (11.2-15.7) gm/dl Hct (34.1-44.9) % MCV (79.4-94.8) fl MCH (25.6-32.2) pg MCHC (32.2-35.5) g/dl RDW Std Deviation (36.4-46.3) fL Plt Count (182-369) K/mm3 MPV (9.4-12.3) fl Neut % (Auto) (34.0-71.1) % Lymph % (Auto) (19.3-51.7) % [place] % (Auto) (4.7-12.5) % Eos % (Auto) (0.7-5.8) Baso % (Auto) (0.1-1.2) % Neut # (Auto) (1.56-6.13) K/mm3 Lymph # (Auto) (1.18-3.74) K/mm3 [place] # (Auto) (0.24-0.36) K/mm3 Eos # (Auto) (0.04-0.36) K/mm3 Baso # (Auto) (0.01-0.08) K/mm3 PT (9.7-12.0) SECONDS INR Sodium (136-145) mEq/L Potassium (3.5-5.1) mEq/L Chloride (98-107) mEq/L Carbon Dioxide (21-32) mEq/L Anion Gap (5-15) BUN (7-18) mg/dL Creatinine (0.55-1.02) mg/dL Est Cr Clr Drug Dosing mL/min Estimated GFR (MDRD) (>60) mL/min BUN/Creatinine Ratio (14-18) Glucose (70-99) mg/dL POC Glucose 309 H 348 H 223 H (70-99) mg/dL Hemoglobin A1c ( - 5.6) % Calcium (8.5-10.1) mg/dL Phosphorus (2.6-4.7) mg/dL Magnesium (1.8-2.4) mg/dL Total Bilirubin (0.2-1.0) mg/dL AST (15-37) U/L ALT (14-59) U/L Alkaline Phosphatase (46-116) U/L C-Reactive Protein (<1.0) mg/dL Total Protein (6.4-8.2) g/dl Albumin (3.4-5.0) g/dl Globulin gm/dL Albumin/Globulin Ratio (1-2) Procalcitonin ng/mL 07/03/21 07/03/21 07/03/21 Range/Units 06:30 06:30 06:30 WBC 5.36 (3.98-10.04) K/mm3 RBC 3.89 L (3.98-5.22) M/mm3 Hgb 12.0 (11.2-15.7) gm/dl Hct 39.2 (34.1-44.9) % MCV 100.8 H (79.4-94.8) fl MCH 30.8 (25.6-32.2) pg MCHC 30.6 L (32.2-35.5) g/dl RDW Std Deviation 52.8 H (36.4-46.3) fL Plt Count 150 L (182-369) K/mm3 MPV 10.0 (9.4-12.3) fl Neut % (Auto) 56.3 (34.0-71.1) % Lymph % (Auto) 26.3 (19.3-51.7) % [place] % (Auto) 16.6 H (4.7-12.5) % Eos % (Auto) 0.2 L (0.7-5.8) Baso % (Auto) 0.2 (0.1-1.2) % Neut # (Auto) 3.02 (1.56-6.13) K/mm3 Lymph # (Auto) 1.41 (1.18-3.74) K/mm3 [place] # (Auto) 0.89 H (0.24-0.36) K/mm3 Eos # (Auto) 0.01 L (0.04-0.36) K/mm3 Baso # (Auto) 0.01 (0.01-0.08) K/mm3 PT 14.7 H (9.7-12.0) SECONDS INR 1.34 Sodium 140 (136-145) mEq/L Potassium 4.3 (3.5-5.1) mEq/L Chloride 104 (98-107) mEq/L Carbon Dioxide 27 (21-32) mEq/L Anion Gap 13.3 (5-15) BUN 35 H (7-18) mg/dL Creatinine 1.4 H (0.55-1.02) mg/dL Est Cr Clr Drug Dosing 27.50 mL/min Estimated GFR (MDRD) 36 (>60) mL/min BUN/Creatinine Ratio 25.0 H (14-18) Glucose 248 H (70-99) mg/dL POC Glucose (70-99) mg/dL Hemoglobin A1c ( - 5.6) % Calcium 8.3 L (8.5-10.1) mg/dL Phosphorus 3.2 (2.6-4.7) mg/dL Magnesium 1.8 (1.8-2.4) mg/dL Total Bilirubin 0.2 (0.2-1.0) mg/dL AST 34 (15-37) U/L ALT 19 (14-59) U/L Alkaline Phosphatase 28 L (46-116) U/L C-Reactive Protein 13.3 H* (<1.0) mg/dL Total Protein 6.8 (6.4-8.2) g/dl Albumin 2.6 L (3.4-5.0) g/dl Globulin 4.2 gm/dL Albumin/Globulin Ratio 0.6 L (1-2) Procalcitonin ng/mL 07/03/21 Range/Units 10:01 WBC (3.98-10.04) K/mm3 RBC (3.98-5.22) M/mm3 Hgb (11.2-15.7) gm/dl Hct (34.1-44.9) % MCV (79.4-94.8) fl MCH (25.6-32.2) pg MCHC (32.2-35.5) g/dl RDW Std Deviation (36.4-46.3) fL Plt Count (182-369) K/mm3 MPV (9.4-12.3) fl Neut % (Auto) (34.0-71.1) % Lymph % (Auto) (19.3-51.7) % [place] % (Auto) (4.7-12.5) % Eos % (Auto) (0.7-5.8) Baso % (Auto) (0.1-1.2) % Neut # (Auto) (1.56-6.13) K/mm3 Lymph # (Auto) (1.18-3.74) K/mm3 [place] # (Auto) (0.24-0.36) K/mm3 Eos # (Auto) (0.04-0.36) K/mm3 Baso # (Auto) (0.01-0.08) K/mm3 PT (9.7-12.0) SECONDS INR Sodium (136-145) mEq/L Potassium (3.5-5.1) mEq/L Chloride (98-107) mEq/L Carbon Dioxide (21-32) mEq/L Anion Gap (5-15) BUN (7-18) mg/dL Creatinine (0.55-1.02) mg/dL Est Cr Clr Drug Dosing mL/min Estimated GFR (MDRD) (>60) mL/min BUN/Creatinine Ratio (14-18) Glucose (70-99) mg/dL POC Glucose 311 H (70-99) mg/dL Hemoglobin A1c ( - 5.6) % Calcium (8.5-10.1) mg/dL Phosphorus (2.6-4.7) mg/dL Magnesium (1.8-2.4) mg/dL Total Bilirubin (0.2-1.0) mg/dL AST (15-37) U/L ALT (14-59) U/L Alkaline Phosphatase (46-116) U/L C-Reactive Protein (<1.0) mg/dL Total Protein (6.4-8.2) g/dl Albumin (3.4-5.0) g/dl Globulin gm/dL Albumin/Globulin Ratio (1-2) Procalcitonin ng/mL Result Diagrams: 07/03/21 06:30 07/03/21 06:30 Sepsis Event Note - Evaluation Sepsis Screening Result: No Definite Risk - Focused Exam Vital Signs: Vital Signs Temp Temp Pulse Pulse Resp BP BP 07/03/21 08:43 07/03/21 08:00 67 140/92 H 07/03/21 07:11 97.5 F 67 18 140/92 H 07/03/21 06:57 07/03/21 06:49 07/03/21 04:00 97.9 F 68 14 138/72 07/03/21 00:00 98.6 F 72 16 146/78 H Pulse Ox Pulse Ox Pulse Ox 07/03/21 08:43 94 L 07/03/21 08:00 07/03/21 07:11 88 L 07/03/21 06:57 94 L 07/03/21 06:49 98 07/03/21 04:00 93 L 07/03/21 00:00 93 L - Problem List & Annotations (1) Pneumonia due to COVID-19 virus SNOMED Code(s): 617396207114454607 Code(s): U07.1 - COVID-19; J12.82 - PNEUMONIA DUE TO CORONAVIRUS DISEASE 2019 Status: Acute Current Visit: Yes (2) Insulin dependent diabetes mellitus SNOMED Code(s): 08546974 Code(s): TFJ1065 - Status: Acute Current Visit: Yes (3) Acute on chronic renal insufficiency SNOMED Code(s): 737525336 Code(s): N28.9 - DISORDER OF KIDNEY AND URETER, UNSPECIFIED; N18.9 - CHRONIC KIDNEY DISEASE, UNSPECIFIED Status: Acute Current Visit: Yes (4) Atrial fibrillation SNOMED Code(s): 59461782 Code(s): I48.91 - UNSPECIFIED ATRIAL FIBRILLATION Status: Acute Current Visit: Yes - Problem List Review Problem List Initiated/Reviewed/Updated: Yes - My Orders Last 24 Hours: My Active Orders 07/02/21 Lunch Soft Diet [DIET] 07/02/21 16:00 cefTRIAXone [Rocephin] 2 gm Sodium Chloride 0.9% [Normal Saline] 100 ml IV Q24H 07/03/21 13:30 Remdesivir 100 mg Sodium Chloride 0.9% [Normal Saline] 100 ml IV Q24H 07/03/21 18:00 Warfarin [Coumadin] 7.5 mg PO QPM 07/04/21 05:11 C-REACTIVE PROTEIN [CHEM] AM CBC WITH AUTO DIFF [HEME] AM CMP [COMPREHENSIVE METABOLIC PN,CMP] [CHEM] AM INR,PT,PROTHROMBIN TIME [COAG] AM MAGNESIUM [CHEM] AM PHOSPHORUS [CHEM] AM 07/05/21 05:11 C-REACTIVE PROTEIN [CHEM] AM CBC WITH AUTO DIFF [HEME] AM CMP [COMPREHENSIVE METABOLIC PN,CMP] [CHEM] AM INR,PT,PROTHROMBIN TIME [COAG] AM MAGNESIUM [CHEM] AM PHOSPHORUS [CHEM] AM 07/06/21 05:11 C-REACTIVE PROTEIN [CHEM] AM CBC WITH AUTO DIFF [HEME] AM CMP [COMPREHENSIVE METABOLIC PN,CMP] [CHEM] AM INR,PT,PROTHROMBIN TIME [COAG] AM MAGNESIUM [CHEM] AM PHOSPHORUS [CHEM] AM 07/07/21 05:11 C-REACTIVE PROTEIN [CHEM] AM CBC WITH AUTO DIFF [HEME] AM CMP [COMPREHENSIVE METABOLIC PN,CMP] [CHEM] AM INR,PT,PROTHROMBIN TIME [COAG] AM MAGNESIUM [CHEM] AM PHOSPHORUS [CHEM] AM 07/08/21 05:11 C-REACTIVE PROTEIN [CHEM] AM CBC WITH AUTO DIFF [HEME] AM CMP [COMPREHENSIVE METABOLIC PN,CMP] [CHEM] AM MAGNESIUM [CHEM] AM PHOSPHORUS [CHEM] AM - Plan Plan:: 86-year-old female with Alzheimer's dementia, atrial fibrillation, psychotic disorder with delusions due to known physiological condition, abnormalities of gait, dysphagia unspecified, borderline intellectual functioning, unspecified psychosis, atrial fibrillation with use of warfarin, diabetes mellitus on insulin, chronic kidney disease, hypertension, sick sinus syndrome with pacema ker, venous insufficiency, gastroesophageal reflux disease, history of pressure ulcer of right buttock stage III but not current presents to emergency department with altered mental status, hypoxia due to COVID-19 pneumonia. Respiratory failure secondary to COVID-19 pneumonia Altered mental status * Requiring 0.5-1 L nasal cannula * Renal function has improved we can start remdesivir * Temperature on arrival of 101.6not afebrile over 24 hours * Altered mental status significantly improved * White count stable 5.4, platelets decreased to 150, CRP is down to 13.3 * Elevated BNP on admission may be secondary to CHF versus renal insufficiency * Received Covid vaccination * On dexamethasone * Procalcitonin 1.0 Alzheimer's dementia * Improved communication today Atrial fibrillation on warfarin Subtherapeutic INR * INR is subtherapeutic at 1.47--> 1.32-->1.34 * Rate is controlled on home medications * digoxin 0.9 Insulin-dependent diabetes mellitus * Hemoglobin A1c 8.5 * MAR says she is on 14 units of short acting insulin at meals and 18 units of Lantus daily * Blood sugars running from low 100s to low 200s Acute renal failure on chronic * GFR increased to above 31 with a creatinine of 1.4 * Initial GFR less than 30 therefore remdesivir was not started last night * Renal function improved above 30 and therefore started remdesivir * No recent baseline renal function available Hypertension/sick sinus syndrome with pacemaker * Monitor blood pressure and heart rate closely Plan * Admit patient to the floor on strict isolation * Continue IV fluids * Continue 3-day course azithromycin and 5-day course ceftriaxone * Continue remdesivir * Follow Covid labs to include CBC, CMP, mag, Phos, CRP, D-dimer * Pharmacy to dose warfarin * Daily INR * With improving mentation advance diet. We will need to find what is the appropriate diet she is on at the half-way. * Lantus 10 units daily. This will likely need to be increased because of steroids; sliding scale scale insulin; consider prandial blood sugars if taking p.o. well * Renally adjust medications * VTE prophylaxis with Lovenox * CODE STATUS: Full code; I spoke with son in regards to her CODE STATUS. I explained to him that if she gets intubated or coded that she would not likely survive.
[2021-07-03] MEDS: REMDESIVIR 100 MG in Sodium Chloride 0.9% 100 ML IV SCH (13:55)
[2021-07-03] MEDS: cefTRIAXone 2 GM in Sodium Chloride 0.9% 100 ML IV SCH (17:54)
[2021-07-03] MEDS ORDERED: Warfarin 7.5 MG Tab PO SCH (18:00)
[2021-07-03] MEDS ORDERED: Insulin Lispro 100 UNIT/ML 10 ML Vial SUBCUT ONE (18:50)
[2021-07-03] MEDS: Aspirin 81 MG Tab.EC PO SCH (20:46)
[2021-07-03] MEDS: Azithromycin 500 MG in Sodium Chloride 0.9% 250 ML IV SCH (20:47)
[2021-07-04] MEDS: Insulin Glarg,Human.Rec.Analog 100 Unit/ML SUBCUT SCH ×2 (06:52→17:15)
[2021-07-04] MEDS: Levothyroxine 25 MCG Tab PO SCH (06:53)
[2021-07-04] MEDS: Insulin Lispro 100 UNIT/ML 10 ML Vial SUBCUT SCH ×4 (06:53→21:48)
[2021-07-04] MEDS: Digoxin 125 MCG Tab PO SCH (08:22)
[2021-07-04] MEDS: Dexamethasone 10 MG/ML SDV IVPUSH SCH (08:22)
[2021-07-04] MEDS: Metoprolol Tartrate 25 MG Tab PO SCH ×2 (08:22→21:45)
[2021-07-04] MEDS: VENLAFAXINE HCL 100 MG PO SCH (08:23)
[2021-07-04] MEDS: Albuterol 6.7 GM Inhaler INH SCH (09:00)
[2021-07-04] MEDS: REMDESIVIR 100 MG in Sodium Chloride 0.9% 100 ML IV SCH (13:41)
--- NOTE | 2021-07-04 13:56 | PCM.PN ---
- General Info Date of Service: 07/04/21 Admission Dx/Problem (Free Text): Admission Diagnosis/Problem Admission Diagnosis/Problem Hypoxia Subjective Update: 86-year-old admitted with COVID-19 pneumonia. Patient continues to improve.. She has been weaned down to 0.5 L/min nasal cannula to RA. Functional Status: Reports: Pain Controlled - Review of Systems General: Reports: Other (Unable to perform a full review of systems secondary to dementia) - Patient Data Vitals - Most Recent: Last Vital Signs Temp 97.5 F 07/04/21 08:21 Pulse 73 07/04/21 08:22 Resp 19 07/04/21 08:21 BP 133/79 07/04/21 08:22 Pulse Ox 97 07/04/21 09:31 Weight - Most Recent: 231 lb 3.2 oz I&O - Last 24 Hours: Intake & Output 07/03/21 07/04/21 07/04/21 22:59 06:59 14:59 Intake Total 1290 300 Balance 1290 300 Lab Results Last 24 Hours: Laboratory Results - last 24 hr 07/03/21 07/03/21 07/03/21 Range/Units 16:17 16:30 17:59 WBC (3.98-10.04) K/mm3 RBC (3.98-5.22) M/mm3 Hgb (11.2-15.7) gm/dl Hct (34.1-44.9) % MCV (79.4-94.8) fl MCH (25.6-32.2) pg MCHC (32.2-35.5) g/dl RDW Std Deviation (36.4-46.3) fL Plt Count (182-369) K/mm3 MPV (9.4-12.3) fl Neut % (Auto) (34.0-71.1) % Lymph % (Auto) (19.3-51.7) % [place] % (Auto) (4.7-12.5) % Eos % (Auto) (0.7-5.8) Baso % (Auto) (0.1-1.2) % Neut # (Auto) (1.56-6.13) K/mm3 Lymph # (Auto) (1.18-3.74) K/mm3 [place] # (Auto) (0.24-0.36) K/mm3 Eos # (Auto) (0.04-0.36) K/mm3 Baso # (Auto) (0.01-0.08) K/mm3 PT (9.7-12.0) SECONDS INR Sodium (136-145) mEq/L Potassium (3.5-5.1) mEq/L Chloride (98-107) mEq/L Carbon Dioxide (21-32) mEq/L Anion Gap (5-15) BUN (7-18) mg/dL Creatinine (0.55-1.02) mg/dL Est Cr Clr Drug Dosing mL/min Estimated GFR (MDRD) (>60) mL/min BUN/Creatinine Ratio (14-18) Glucose 496 H* (70-99) mg/dL POC Glucose 460 H* 447 H* (70-99) mg/dL Calcium (8.5-10.1) mg/dL Phosphorus (2.6-4.7) mg/dL Magnesium (1.8-2.4) mg/dL Total Bilirubin (0.2-1.0) mg/dL AST (15-37) U/L ALT (14-59) U/L Alkaline Phosphatase (46-116) U/L C-Reactive Protein (<1.0) mg/dL Total Protein (6.4-8.2) g/dl Albumin (3.4-5.0) g/dl Globulin gm/dL Albumin/Globulin Ratio (1-2) 07/03/21 07/03/21 07/04/21 Range/Units 18:15 20:44 06:35 WBC (3.98-10.04) K/mm3 RBC (3.98-5.22) M/mm3 Hgb (11.2-15.7) gm/dl Hct (34.1-44.9) % MCV (79.4-94.8) fl MCH (25.6-32.2) pg MCHC (32.2-35.5) g/dl RDW Std Deviation (36.4-46.3) fL Plt Count (182-369) K/mm3 MPV (9.4-12.3) fl Neut % (Auto) (34.0-71.1) % Lymph % (Auto) (19.3-51.7) % [place] % (Auto) (4.7-12.5) % Eos % (Auto) (0.7-5.8) Baso % (Auto) (0.1-1.2) % Neut # (Auto) (1.56-6.13) K/mm3 Lymph # (Auto) (1.18-3.74) K/mm3 [place] # (Auto) (0.24-0.36) K/mm3 Eos # (Auto) (0.04-0.36) K/mm3 Baso # (Auto) (0.01-0.08) K/mm3 PT 16.1 H (9.7-12.0) SECONDS INR 1.47 Sodium (136-145) mEq/L Potassium (3.5-5.1) mEq/L Chloride (98-107) mEq/L Carbon Dioxide (21-32) mEq/L Anion Gap (5-15) BUN (7-18) mg/dL Creatinine (0.55-1.02) mg/dL Est Cr Clr Drug Dosing mL/min Estimated GFR (MDRD) (>60) mL/min BUN/Creatinine Ratio (14-18) Glucose 464 H* (70-99) mg/dL POC Glucose 291 H (70-99) mg/dL Calcium (8.5-10.1) mg/dL Phosphorus (2.6-4.7) mg/dL Magnesium (1.8-2.4) mg/dL Total Bilirubin (0.2-1.0) mg/dL AST (15-37) U/L ALT (14-59) U/L Alkaline Phosphatase (46-116) U/L C-Reactive Protein (<1.0) mg/dL Total Protein (6.4-8.2) g/dl Albumin (3.4-5.0) g/dl Globulin gm/dL Albumin/Globulin Ratio (1-2) 07/04/21 07/04/21 07/04/21 Range/Units 06:35 06:35 06:51 WBC 5.90 (3.98-10.04) K/mm3 RBC 4.33 (3.98-5.22) M/mm3 Hgb 13.5 D (11.2-15.7) gm/dl Hct 43.1 (34.1-44.9) % MCV 99.5 H (79.4-94.8) fl MCH 31.2 (25.6-32.2) pg MCHC 31.3 L (32.2-35.5) g/dl RDW Std Deviation 52.1 H (36.4-46.3) fL Plt Count 134 L (182-369) K/mm3 MPV 10.2 (9.4-12.3) fl Neut % (Auto) 53.5 (34.0-71.1) % Lymph % (Auto) 28.8 (19.3-51.7) % [place] % (Auto) 16.8 H (4.7-12.5) % Eos % (Auto) 0.3 L (0.7-5.8) Baso % (Auto) 0.3 (0.1-1.2) % Neut # (Auto) 3.15 (1.56-6.13) K/mm3 Lymph # (Auto) 1.70 (1.18-3.74) K/mm3 [place] # (Auto) 0.99 H (0.24-0.36) K/mm3 Eos # (Auto) 0.02 L (0.04-0.36) K/mm3 Baso # (Auto) 0.02 (0.01-0.08) K/mm3 PT (9.7-12.0) SECONDS INR Sodium 140 (136-145) mEq/L Potassium 4.2 (3.5-5.1) mEq/L Chloride 103 (98-107) mEq/L Carbon Dioxide 28 (21-32) mEq/L Anion Gap 13.2 (5-15) BUN 26 H (7-18) mg/dL Creatinine 1.2 H (0.55-1.02) mg/dL Est Cr Clr Drug Dosing 32.09 mL/min Estimated GFR (MDRD) 43 (>60) mL/min BUN/Creatinine Ratio 21.7 H (14-18) Glucose 125 H (70-99) mg/dL POC Glucose 113 H (70-99) mg/dL Calcium 8.5 (8.5-10.1) mg/dL Phosphorus 3.1 (2.6-4.7) mg/dL Magnesium 1.7 L (1.8-2.4) mg/dL Total Bilirubin 0.2 (0.2-1.0) mg/dL AST 37 (15-37) U/L ALT 20 (14-59) U/L Alkaline Phosphatase 30 L (46-116) U/L C-Reactive Protein 10.8 H* (<1.0) mg/dL Total Protein 7.1 (6.4-8.2) g/dl Albumin 2.9 L (3.4-5.0) g/dl Globulin 4.2 gm/dL Albumin/Globulin Ratio 0.7 L (1-2) 07/04/21 Range/Units 12:20 WBC (3.98-10.04) K/mm3 RBC (3.98-5.22) M/mm3 Hgb (11.2-15.7) gm/dl Hct (34.1-44.9) % MCV (79.4-94.8) fl MCH (25.6-32.2) pg MCHC (32.2-35.5) g/dl RDW Std Deviation (36.4-46.3) fL Plt Count (182-369) K/mm3 MPV (9.4-12.3) fl Neut % (Auto) (34.0-71.1) % Lymph % (Auto) (19.3-51.7) % [place] % (Auto) (4.7-12.5) % Eos % (Auto) (0.7-5.8) Baso % (Auto) (0.1-1.2) % Neut # (Auto) (1.56-6.13) K/mm3 Lymph # (Auto) (1.18-3.74) K/mm3 [place] # (Auto) (0.24-0.36) K/mm3 Eos # (Auto) (0.04-0.36) K/mm3 Baso # (Auto) (0.01-0.08) K/mm3 PT (9.7-12.0) SECONDS INR Sodium (136-145) mEq/L Potassium (3.5-5.1) mEq/L Chloride (98-107) mEq/L Carbon Dioxide (21-32) mEq/L Anion Gap (5-15) BUN (7-18) mg/dL Creatinine (0.55-1.02) mg/dL Est Cr Clr Drug Dosing mL/min Estimated GFR (MDRD) (>60) mL/min BUN/Creatinine Ratio (14-18) Glucose (70-99) mg/dL POC Glucose 238 H (70-99) mg/dL Calcium (8.5-10.1) mg/dL Phosphorus (2.6-4.7) mg/dL Magnesium (1.8-2.4) mg/dL Total Bilirubin (0.2-1.0) mg/dL AST (15-37) U/L ALT (14-59) U/L Alkaline Phosphatase (46-116) U/L C-Reactive Protein (<1.0) mg/dL Total Protein (6.4-8.2) g/dl Albumin (3.4-5.0) g/dl Globulin gm/dL Albumin/Globulin Ratio (1-2) Greg Results Last 24 Hours: Microbiology 07/01/21 15:15 Blood Culture - Preliminary Blood - Venous - Lab Draw 07/01/21 14:55 Blood Culture - Preliminary Blood - Venous Med Orders - Current: Current Medications Acetaminophen (Acetaminophen 650 Mg Supp) 650 mg RECTAL Q4H PRN PRN Reason: Pain (mild 1-3) Acetaminophen (Acetaminophen 325 Mg Tab) 650 mg PO Q4H PRN PRN Reason: Pain (Mild 1-3)/fever Albuterol (Albuterol 0.083% 2.5 Mg/3 Ml Neb Soln) 2.5 mg NEB Q2H PRN PRN Reason: Shortness Of Breath/wheezing Albuterol (Albuterol 6.7 Gm Inhaler) 0 gm INH DAILY [facility] Last Admin: 07/03/21 08:42 Dose: 2 puff Documented by: Albuterol (Albuterol 6.7 Gm Inhaler) 0 gm INH Q4H PRN PRN Reason: Shortness of Breath Last Admin: 07/03/21 15:20 Dose: 2 puff Documented by: Albuterol/Ipratropium (Albuterol/Ipratropium 3.0-0.5 Mg/3 Ml Neb Soln) 3 ml NEB Q4H PRN PRN Reason: Shortness Of Breath/wheezing Aspirin (Aspirin 81 Mg Tab.Ec) 81 mg PO BEDTIME [facility] Last Admin: 07/03/21 20:46 Dose: 81 mg Documented by: Bisacodyl (Bisacodyl 10 Mg Supp) 10 mg RECTAL DAILY PRN PRN Reason: Constipation Dexamethasone (Dexamethasone 10 Mg/Ml Sdv) 6 mg IVPUSH DAILY [facility] Stop: 07/10/21 09:01 Last Admin: 07/04/21 08:22 Dose: 6 mg Documented by: Digoxin (Digoxin 125 Mcg Tab) 125 mcg PO DAILY [facility] Last Admin: 07/04/21 08:22 Dose: 125 mcg Documented by: Ceftriaxone Sodium 2 gm/ (Sodium Chloride) 100 mls @ 200 mls/hr IV Q24H [facility] Stop: 07/05/21 16:29 Last Admin: 07/03/21 17:54 Dose: 200 mls/hr Documented by: Remdesivir 100 mg/ Sodium (Chloride) 100 mls @ 100 mls/hr IV Q24H [facility] Stop: 07/06/21 14:29 Last Admin: 07/04/21 13:41 Dose: 100 mls/hr Documented by: Insulin Glargine (Insulin Glarg,Human.Rec.Analog 100 Unit/Ml) 10 unit SUBCUT BIDAC [facility] Last Admin: 07/04/21 06:52 Dose: 10 units Documented by: Insulin Human Lispro (Insulin Lispro 100 Unit/Ml 10 Ml Vial) 0 unit SUBCUT QIDACANDBED [facility]; Protocol Last Admin: 07/04/21 12:48 Dose: 4 units Documented by: Levothyroxine Sodium (Levothyroxine 25 Mcg Tab) 25 mcg PO ACBREAKFAST [facility] Last Admin: 07/04/21 06:53 Dose: 25 mcg Documented by: Metoprolol Tartrate (Metoprolol Tartrate 25 Mg Tab) 12.5 mg PO BID [facility] Last Admin: 07/04/21 08:22 Dose: 12.5 mg Documented by: Venlafaxine Hcl 100 (Mg Tablet Ptom) 0 mg PO DAILY [facility] Last Admin: 07/04/21 08:23 Dose: Not Given Documented by: Ondansetron HCl (Ondansetron 4 Mg/2 Ml Sdv) 4 mg IV Q6H PRN PRN Reason: Nausea/Vomiting Senna/Docusate Sodium (Docusate Sodium/Sennosides 50-8.6 Mg Tab) 2 tab PO BID [facility] Last Admin: 07/04/21 08:23 Dose: 2 tab Documented by: Senna/Docusate Sodium (Docusate Sodium/Sennosides 50-8.6 Mg Tab) 2 tab PO DAILY PRN PRN Reason: Constipation Sodium Chloride (Sodium Chloride 0.9% 10 Ml Syringe) 10 ml FLUSH ASDIRECTED PRN PRN Reason: Keep Vein Open Last Admin: 07/01/21 14:55 Dose: 10 ml Documented by: Warfarin Sodium (Pharmacy To Dose - Warfarin) 1 dose .XX ASDIRECTED PRN PRN Reason: RX TO DOSE WARFARIN Warfarin Sodium (Warfarin 3 Mg Tab) 6 mg PO QPM [facility] Stop: 07/04/21 18:01 Discontinued Medications Acetaminophen (Acetaminophen 650 Mg Supp) 650 mg RECTAL NOW ONE Stop: 07/01/21 15:06 Last Admin: 07/01/21 16:19 Dose: 650 mg Documented by: Dexamethasone (Dexamethasone 4 Mg/Ml Sdv) 6 mg IVPUSH ONETIME ONE Stop: 07/01/21 17:04 Last Admin: 07/01/21 17:23 Dose: 6 mg Documented by: Sodium Chloride (Normal Saline) 1,000 mls @ 125 mls/hr IV ASDIRECTED [facility] Last Admin: 07/01/21 16:26 Dose: 125 mls/hr Documented by: Ceftriaxone Sodium 2 gm/ (Sodium Chloride) 100 mls @ 200 mls/hr IV ONETIME ONE Stop: 07/01/21 16:49 Last Admin: 07/01/21 16:46 Dose: 200 mls/hr Documented by: Remdesivir 200 mg/ Sodium (Chloride) 250 mls @ 250 mls/hr IV ONETIME ONE Stop: 07/01/21 17:04 Last Admin: 07/01/21 19:15 Dose: Not Given Documented by: Azithromycin 500 mg/ Sodium (Chloride) 250 mls @ 250 mls/hr IV Q24H [facility] Stop: 07/03/21 22:29 Last Admin: 07/03/21 20:47 Dose: 250 mls/hr Documented by: Sodium Chloride (Normal Saline) 1,000 mls @ 50 mls/hr IV ASDIRECTED [facility] Last Admin: 07/01/21 21:49 Dose: 50 mls/hr Documented by: Magnesium Sulfate 2 gm/ Premix 50 mls @ 25 mls/hr IV ONETIME ONE Stop: 07/02/21 10:28 Last Admin: 07/02/21 09:02 Dose: 25 mls/hr Documented by: Remdesivir 200 mg/ Sodium (Chloride) 250 mls @ 250 mls/hr IV ONETIME ONE Stop: 07/02/21 14:29 Last Admin: 07/02/21 13:35 Dose: 250 mls/hr Documented by: Influenza Virus Vaccine (Flu Vacc [id number](65up)/Mf59c/Pf 60 Mcg/0.5 Ml Syringe) 60 mcg IM .ONCE ONE Stop: 07/01/21 20:01 Insulin Glargine (Insulin Glarg,Human.Rec.Analog 100 Unit/Ml) 10 unit SUBCUT DAILY [facility] Last Admin: 07/03/21 07:59 Dose: 10 units Documented by: Insulin Human Lispro (Insulin Lispro 100 Unit/Ml 10 Ml Vial) 10 unit SUBCUT ONETIME ONE Stop: 07/03/21 18:51 Last Admin: 07/03/21 19:01 Dose: 10 unit Documented by: Warfarin Sodium (Warfarin 5 Mg Tab) 5 mg PO ONETIME ONE Stop: 07/01/21 23:01 Last Admin: 07/01/21 23:10 Dose: 5 mg Documented by: Warfarin Sodium (Warfarin 5 Mg Tab) 5 mg PO QPM [facility] Stop: 07/02/21 18:01 Last Admin: 07/02/21 17:21 Dose: 5 mg Documented by: Warfarin Sodium (Warfarin 7.5 Mg Tab) 7.5 mg PO QPM [facility] Stop: 07/03/21 18:01 Last Admin: 07/03/21 17:54 Dose: 7.5 mg Documented by: - Exam Quality Assessment: No: Supplemental Oxygen General: Alert, Oriented HEENT: Pupils Equal, Mucous Membr. Moist/Purdy Neck: Supple Lungs: Normal Respiratory Effort, Rales (Bilateral) Cardiovascular: Irregular Rhythm (Regular rate and rhythm) GI/Abdominal Exam: Normal Bowel Sounds, Non-Tender, No Distention Extremities: Normal Inspection, Normal Capillary Refill, Pedal Edema (1+) Skin: Warm, Dry, Intact Psy/Mental Status: Alert - Patient Data Lab Results Last 24 hrs: Laboratory Results - last 24 hr 07/03/21 07/03/21 07/03/21 Range/Units 16:17 16:30 17:59 WBC (3.98-10.04) K/mm3 RBC (3.98-5.22) M/mm3 Hgb (11.2-15.7) gm/dl Hct (34.1-44.9) % MCV (79.4-94.8) fl MCH (25.6-32.2) pg MCHC (32.2-35.5) g/dl RDW Std Deviation (36.4-46.3) fL Plt Count (182-369) K/mm3 MPV (9.4-12.3) fl Neut % (Auto) (34.0-71.1) % Lymph % (Auto) (19.3-51.7) % [place] % (Auto) (4.7-12.5) % Eos % (Auto) (0.7-5.8) Baso % (Auto) (0.1-1.2) % Neut # (Auto) (1.56-6.13) K/mm3 Lymph # (Auto) (1.18-3.74) K/mm3 [place] # (Auto) (0.24-0.36) K/mm3 Eos # (Auto) (0.04-0.36) K/mm3 Baso # (Auto) (0.01-0.08) K/mm3 PT (9.7-12.0) SECONDS INR Sodium (136-145) mEq/L Potassium (3.5-5.1) mEq/L Chloride (98-107) mEq/L Carbon Dioxide (21-32) mEq/L Anion Gap (5-15) BUN (7-18) mg/dL Creatinine (0.55-1.02) mg/dL Est Cr Clr Drug Dosing mL/min Estimated GFR (MDRD) (>60) mL/min BUN/Creatinine Ratio (14-18) Glucose 496 H* (70-99) mg/dL POC Glucose 460 H* 447 H* (70-99) mg/dL Calcium (8.5-10.1) mg/dL Phosphorus (2.6-4.7) mg/dL Magnesium (1.8-2.4) mg/dL Total Bilirubin (0.2-1.0) mg/dL AST (15-37) U/L ALT (14-59) U/L Alkaline Phosphatase (46-116) U/L C-Reactive Protein (<1.0) mg/dL Total Protein (6.4-8.2) g/dl Albumin (3.4-5.0) g/dl Globulin gm/dL Albumin/Globulin Ratio (1-2) 07/03/21 07/03/21 07/04/21 Range/Units 18:15 20:44 06:35 WBC (3.98-10.04) K/mm3 RBC (3.98-5.22) M/mm3 Hgb (11.2-15.7) gm/dl Hct (34.1-44.9) % MCV (79.4-94.8) fl MCH (25.6-32.2) pg MCHC (32.2-35.5) g/dl RDW Std Deviation (36.4-46.3) fL Plt Count (182-369) K/mm3 MPV (9.4-12.3) fl Neut % (Auto) (34.0-71.1) % Lymph % (Auto) (19.3-51.7) % [place] % (Auto) (4.7-12.5) % Eos % (Auto) (0.7-5.8) Baso % (Auto) (0.1-1.2) % Neut # (Auto) (1.56-6.13) K/mm3 Lymph # (Auto) (1.18-3.74) K/mm3 [place] # (Auto) (0.24-0.36) K/mm3 Eos # (Auto) (0.04-0.36) K/mm3 Baso # (Auto) (0.01-0.08) K/mm3 PT 16.1 H (9.7-12.0) SECONDS INR 1.47 Sodium (136-145) mEq/L Potassium (3.5-5.1) mEq/L Chloride (98-107) mEq/L Carbon Dioxide (21-32) mEq/L Anion Gap (5-15) BUN (7-18) mg/dL Creatinine (0.55-1.02) mg/dL Est Cr Clr Drug Dosing mL/min Estimated GFR (MDRD) (>60) mL/min BUN/Creatinine Ratio (14-18) Glucose 464 H* (70-99) mg/dL POC Glucose 291 H (70-99) mg/dL Calcium (8.5-10.1) mg/dL Phosphorus (2.6-4.7) mg/dL Magnesium (1.8-2.4) mg/dL Total Bilirubin (0.2-1.0) mg/dL AST (15-37) U/L ALT (14-59) U/L Alkaline Phosphatase (46-116) U/L C-Reactive Protein (<1.0) mg/dL Total Protein (6.4-8.2) g/dl Albumin (3.4-5.0) g/dl Globulin gm/dL Albumin/Globulin Ratio (1-2) 07/04/21 07/04/21 07/04/21 Range/Units 06:35 06:35 06:51 WBC 5.90 (3.98-10.04) K/mm3 RBC 4.33 (3.98-5.22) M/mm3 Hgb 13.5 D (11.2-15.7) gm/dl Hct 43.1 (34.1-44.9) % MCV 99.5 H (79.4-94.8) fl MCH 31.2 (25.6-32.2) pg MCHC 31.3 L (32.2-35.5) g/dl RDW Std Deviation 52.1 H (36.4-46.3) fL Plt Count 134 L (182-369) K/mm3 MPV 10.2 (9.4-12.3) fl Neut % (Auto) 53.5 (34.0-71.1) % Lymph % (Auto) 28.8 (19.3-51.7) % [place] % (Auto) 16.8 H (4.7-12.5) % Eos % (Auto) 0.3 L (0.7-5.8) Baso % (Auto) 0.3 (0.1-1.2) % Neut # (Auto) 3.15 (1.56-6.13) K/mm3 Lymph # (Auto) 1.70 (1.18-3.74) K/mm3 [place] # (Auto) 0.99 H (0.24-0.36) K/mm3 Eos # (Auto) 0.02 L (0.04-0.36) K/mm3 Baso # (Auto) 0.02 (0.01-0.08) K/mm3 PT (9.7-12.0) SECONDS INR Sodium 140 (136-145) mEq/L Potassium 4.2 (3.5-5.1) mEq/L Chloride 103 (98-107) mEq/L Carbon Dioxide 28 (21-32) mEq/L Anion Gap 13.2 (5-15) BUN 26 H (7-18) mg/dL Creatinine 1.2 H (0.55-1.02) mg/dL Est Cr Clr Drug Dosing 32.09 mL/min Estimated GFR (MDRD) 43 (>60) mL/min BUN/Creatinine Ratio 21.7 H (14-18) Glucose 125 H (70-99) mg/dL POC Glucose 113 H (70-99) mg/dL Calcium 8.5 (8.5-10.1) mg/dL Phosphorus 3.1 (2.6-4.7) mg/dL Magnesium 1.7 L (1.8-2.4) mg/dL Total Bilirubin 0.2 (0.2-1.0) mg/dL AST 37 (15-37) U/L ALT 20 (14-59) U/L Alkaline Phosphatase 30 L (46-116) U/L C-Reactive Protein 10.8 H* (<1.0) mg/dL Total Protein 7.1 (6.4-8.2) g/dl Albumin 2.9 L (3.4-5.0) g/dl Globulin 4.2 gm/dL Albumin/Globulin Ratio 0.7 L (1-2) 07/04/21 Range/Units 12:20 WBC (3.98-10.04) K/mm3 RBC (3.98-5.22) M/mm3 Hgb (11.2-15.7) gm/dl Hct (34.1-44.9) % MCV (79.4-94.8) fl MCH (25.6-32.2) pg MCHC (32.2-35.5) g/dl RDW Std Deviation (36.4-46.3) fL Plt Count (182-369) K/mm3 MPV (9.4-12.3) fl Neut % (Auto) (34.0-71.1) % Lymph % (Auto) (19.3-51.7) % [place] % (Auto) (4.7-12.5) % Eos % (Auto) (0.7-5.8) Baso % (Auto) (0.1-1.2) % Neut # (Auto) (1.56-6.13) K/mm3 Lymph # (Auto) (1.18-3.74) K/mm3 [place] # (Auto) (0.24-0.36) K/mm3 Eos # (Auto) (0.04-0.36) K/mm3 Baso # (Auto) (0.01-0.08) K/mm3 PT (9.7-12.0) SECONDS INR Sodium (136-145) mEq/L Potassium (3.5-5.1) mEq/L Chloride (98-107) mEq/L Carbon Dioxide (21-32) mEq/L Anion Gap (5-15) BUN (7-18) mg/dL Creatinine (0.55-1.02) mg/dL Est Cr Clr Drug Dosing mL/min Estimated GFR (MDRD) (>60) mL/min BUN/Creatinine Ratio (14-18) Glucose (70-99) mg/dL POC Glucose 238 H (70-99) mg/dL Calcium (8.5-10.1) mg/dL Phosphorus (2.6-4.7) mg/dL Magnesium (1.8-2.4) mg/dL Total Bilirubin (0.2-1.0) mg/dL AST (15-37) U/L ALT (14-59) U/L Alkaline Phosphatase (46-116) U/L C-Reactive Protein (<1.0) mg/dL Total Protein (6.4-8.2) g/dl Albumin (3.4-5.0) g/dl Globulin gm/dL Albumin/Globulin Ratio (1-2) Result Diagrams: 07/04/21 06:35 07/04/21 06:35 Greg Results Last 24 hrs: Microbiology 07/01/21 15:15 Blood Culture - Preliminary Blood - Venous - Lab Draw 07/01/21 14:55 Blood Culture - Preliminary Blood - Venous Sepsis Event Note - Evaluation Sepsis Screening Result: No Definite Risk - Focused Exam Vital Signs: Vital Signs Temp Pulse Resp BP BP Pulse Ox Pulse Ox 07/04/21 09:31 97 07/04/21 08:22 73 133/79 07/04/21 08:21 97.5 F 73 19 133/79 96 07/04/21 04:40 146/78 H 07/04/21 04:31 98.2 F 64 13 160/85 H 94 L - Problem List & Annotations (1) Pneumonia due to COVID-19 virus SNOMED Code(s): 011940687039515989 Code(s): U07.1 - COVID-19; J12.82 - PNEUMONIA DUE TO CORONAVIRUS DISEASE 2019 Status: Acute Current Visit: Yes (2) Insulin dependent diabetes mellitus SNOMED Code(s): 83293588 Code(s): GGS8403 - Status: Acute Current Visit: Yes (3) Acute on chronic renal insufficiency SNOMED Code(s): 901733263 Code(s): N28.9 - DISORDER OF KIDNEY AND URETER, UNSPECIFIED; N18.9 - CHRONIC KIDNEY DISEASE, UNSPECIFIED Status: Acute Current Visit: Yes (4) Atrial fibrillation SNOMED Code(s): 35534074 Code(s): I48.91 - UNSPECIFIED ATRIAL FIBRILLATION Status: Acute Current Visit: Yes - Problem List Review Problem List Initiated/Reviewed/Updated: Yes - My Orders Last 24 Hours: My Active Orders 07/03/21 13:30 Remdesivir 100 mg Sodium Chloride 0.9% [Normal Saline] 100 ml IV Q24H 07/04/21 06:00 Insulin Glarg,Human.Rec.Analog [LantUS] 10 unit SUBCUT BIDAC 07/04/21 18:00 Warfarin [Coumadin] 6 mg PO QPM 07/05/21 05:11 C-REACTIVE PROTEIN [CHEM] AM CBC WITH AUTO DIFF [HEME] AM CMP [COMPREHENSIVE METABOLIC PN,CMP] [CHEM] AM INR,PT,PROTHROMBIN TIME [COAG] AM MAGNESIUM [CHEM] AM PHOSPHORUS [CHEM] AM 07/06/21 05:11 C-REACTIVE PROTEIN [CHEM] AM CBC WITH AUTO DIFF [HEME] AM CMP [COMPREHENSIVE METABOLIC PN,CMP] [CHEM] AM INR,PT,PROTHROMBIN TIME [COAG] AM MAGNESIUM [CHEM] AM PHOSPHORUS [CHEM] AM 07/07/21 05:11 C-REACTIVE PROTEIN [CHEM] AM CBC WITH AUTO DIFF [HEME] AM CMP [COMPREHENSIVE METABOLIC PN,CMP] [CHEM] AM INR,PT,PROTHROMBIN TIME [COAG] AM MAGNESIUM [CHEM] AM PHOSPHORUS [CHEM] AM 07/08/21 05:11 C-REACTIVE PROTEIN [CHEM] AM CBC WITH AUTO DIFF [HEME] AM CMP [COMPREHENSIVE METABOLIC PN,CMP] [CHEM] AM MAGNESIUM [CHEM] AM PHOSPHORUS [CHEM] AM - Plan Plan:: 86-year-old female with Alzheimer's dementia, atrial fibrillation, psychotic disorder with delusions due to known physiological condition, abnormalities of gait, dysphagia unspecified, borderline intellectual functioning, unspecified psychosis, atrial fibrillation with use of warfarin, diabetes mellitus on insulin, chronic kidney disease, hypertension, sick sinus syndrome with pacemaker, venous insufficiency, gastroesophageal reflux disease, history of pressure ulcer of right buttock stage III but not current presents to emergency department with altered mental status, hypoxia due to COVID-19 pneumonia. Respiratory failureresolved COVID-19 pneumonia Altered mental statusresolved * Requiring 0.5-1 L nasal cannula * Renal function has improved we can start remdesivir * Temperature on arrival of 101.6not afebrile over 24 hours * Altered mental status significantly improved * White count stable 5.4, platelets decreased to 150, CRP is down to 13.3 * Elevated BNP on admission may be secondary to CHF versus renal insufficiency * Received Covid vaccination * On dexamethasone * Procalcitonin 1.0 Alzheimer's dementia * Continue improvement in mentation Atrial fibrillation on warfarin Subtherapeutic INR * INR is subtherapeutic at 1.47--> 1.32-->1.34--1.47 * Rate is controlled on home medications * digoxin 0.9 Insulin-dependent diabetes mellitus * Hemoglobin A1c 8.5 * MAR says she is on 14 units of short acting insulin at meals and 18 units of Lantus daily * Blood sugars running from low 100s to low 200s Acute renal failure on chronic * GFR increased to 43 with a creatinine of 1.2 * Initial GFR less than 30 therefore remdesivir was not started last night * No recent baseline renal function available Hypertension/sick sinus syndrome with pacemaker * Monitor blood pressure and heart rate closely Plan * Admit patient to the floor on strict isolation * Continue IV fluids * Continue 3-day course azithromycin and 5-day course ceftriaxone * Continue remdesivir * Follow Covid labs to include CBC, CMP, mag, Phos, CRP, D-dimer * Pharmacy to dose warfarin * Daily INR * With improving mentation advance diet. We will need to find what is the appropriate diet she is on at the longterm. * Lantus 10 units bid ; sliding scale scale insulin; consider prandial blood sugars if taking p.o. well * Renally adjust medications * VTE prophylaxis with Lovenox * CODE STATUS: Full code; I spoke with son in regards to her CODE STATUS. I explained to him that if she gets intubated or coded that she would not likely survive.
[2021-07-04] MEDS: cefTRIAXone 2 GM in Sodium Chloride 0.9% 100 ML IV SCH (16:41)
[2021-07-04] MEDS ORDERED: Warfarin 3 MG Tab PO SCH (18:00)
[2021-07-04] MEDS: Aspirin 81 MG Tab.EC PO SCH (21:48)
[2021-07-05] MEDS: Insulin Glarg,Human.Rec.Analog 100 Unit/ML SUBCUT SCH (06:50)
[2021-07-05] MEDS: Levothyroxine 25 MCG Tab PO SCH (06:51)
[2021-07-05] MEDS: Albuterol 6.7 GM Inhaler INH SCH (08:35)
[2021-07-05] MEDS: Insulin Lispro 100 UNIT/ML 10 ML Vial SUBCUT SCH ×2 (08:44→11:43)
[2021-07-05] MEDS: Dexamethasone 10 MG/ML SDV IVPUSH SCH (08:45)
[2021-07-05] MEDS: Metoprolol Tartrate 25 MG Tab PO SCH (08:45)
[2021-07-05] MEDS: VENLAFAXINE HCL 100 MG PO SCH (08:46)
[2021-07-05] MEDS: Digoxin 125 MCG Tab PO SCH (08:46)
[2021-07-05] MEDS ORDERED: Magnesium Sulfate/Water 2 GM in Premix Bag 1 BAG IV ONE (09:00)
[2021-07-05] MEDS ORDERED: REMDESIVIR 100 MG in Sodium Chloride 0.9% 100 ML IV SCH (11:00)
--- NOTE | 2021-07-05 11:18 | PCM.DCSUM1 ---
Discharge Summary - Hospital Course HPI Initial Comments: 86-year-old female resident of [facility] with Alzheimer's dementia, atrial fibrillation, psychotic disorder with delusions due to known physiological condition, abnormalities of gait, dysphagia unspecified, borderline intellectual functioning, unspecified psychosis, atrial fibrillation with use of warfarin, diabetes mellitus on insulin, chronic kidney disease, hypertension, sick sinus syndrome with pacemaker, venous insufficiency, gastroesophageal reflux disease, history of pressure ulcer of right buttock stage III but not current presents to the emergency department with a fever of 101.6, oxygen saturations in the low eighties, slight cough, and change in mental status. Reportedly patient is talkative at the care home, but on presentation to the emergency department and when transferred to the floor she would open her eyes, look around, move her arms and legs, but not speak. Patient had a negative Covid test at the care home, but it was positive here in the emergency department. History was not obtained through the patient had to be obtained through the emergency department notes and the care home documentation. In the emergency department she was started on IV fluids, chest x-ray, blood cultures, lab work and started on ceftriaxone and dexamethasone. Chest x-ray showed possible CHF with a BNP of 567. C-reactive protein was elevated at 17. She had lactic acidosis initially with a lactic acid of 2.3 and on repeat 1.0. Acute renal failure creatinine of 2.0 and estimated GFR of 24. Remdesivir was not given secondary to renal function. She was previously vaccinated Diagnosis: Stroke: No - Discharge Data Discharge Date: 07/05/21 (Admit date: 07/01/2021) Discharge Disposition: DC/Tfer to SNF 03 Condition: Good - Referral to Home Health Primary Care Physician: Reed Yin MD - Discharge Diagnosis/Problem(s) (1) Pacemaker SNOMED Code(s): 884431176 ICD Code: Z95.0 - PRESENCE OF CARDIAC PACEMAKER Status: Chronic Priority: Low Current Visit: Yes (2) Sick sinus syndrome SNOMED Code(s): 04194663 ICD Code: I49.5 - SICK SINUS SYNDROME Status: Chronic Priority: Low Current Visit: No (3) Alzheimer's dementia SNOMED Code(s): 87574249 ICD Code: G30.9 - ALZHEIMER'S DISEASE, UNSPECIFIED; F02.80 - DEMENTIA IN OTH DISEASES CLASSD ELSWHR W/O BEHAVRL DISTURB Status: Chronic Priority: Medium Current Visit: No Qualifiers: Alzheimer's disease onset: unspecified onset Dementia behavioral disturbance: without behavioral disturbance Qualified Code(s): G30.9 - Alzheimer's disease, unspecified; F02.80 - Dementia in other diseases classified elsewhere without behavioral disturbance (4) Warfarin anticoagulation SNOMED Code(s): 28290744, 924336561, 491757792 ICD Code: Z79.01 - SERVICE TESTER (CURRENT) USE OF ANTICOAGULANTS Status: Chronic Priority: Medium Current Visit: Yes (5) HTN (hypertension) SNOMED Code(s): 82662099 ICD Code: I10 - ESSENTIAL (PRIMARY) HYPERTENSION Status: Chronic Priority: Low Current Visit: No Qualifiers: Hypertension type: unspecified Qualified Code(s): I10 - Essential (primary) hypertension (6) Acute on chronic renal insufficiency SNOMED Code(s): 282590082 ICD Code: N28.9 - DISORDER OF KIDNEY AND URETER, UNSPECIFIED; N18.9 - CHRONIC KIDNEY DISEASE, UNSPECIFIED Status: Acute Priority: Medium Current Visit: Yes (7) Atrial fibrillation SNOMED Code(s): 87954014 ICD Code: I48.91 - UNSPECIFIED ATRIAL FIBRILLATION Status: Chronic Priority: Low Current Visit: No Qualifiers: Atrial fibrillation type: unspecified Qualified Code(s): I48.91 - Unspecified atrial fibrillation (8) COVID-19 SNOMED Code(s): 328964623 ICD Code: U07.1 - COVID-19 Status: Acute Priority: High Current Visit: Yes (9) Hypoxia SNOMED Code(s): 260451781 ICD Code: R09.02 - HYPOXEMIA Status: Resolved Priority: High Current Visit: Yes (10) Insulin dependent diabetes mellitus SNOMED Code(s): 44115165 ICD Code: SNF9321 - Status: Chronic Priority: Medium Current Visit: Yes (11) Pneumonia due to COVID-19 virus SNOMED Code(s): 047116606115026937 ICD Code: U07.1 - COVID-19; J12.82 - PNEUMONIA DUE TO CORONAVIRUS DISEASE 2019 Status: Acute Priority: High Current Visit: Yes - Patient Summary/Data Consults: Consultations 07/01/21 20:51 PT Evaluation and Treatment [CONS] Routine Labs Pending at D/C: None Recommended Follow-up Testing/Procedures: Follow-up with primary care provider within 7 to 10 days of discharge, sooner if needed. * Order placed for repeat INR on 07/07/2021 with results to primary care provider. Please review this. * Patient is a diabetic. Recommend continue 4 times daily before meals and bedtime glucose checks at SNF. * Patient weaned off of oxygen prior to discharge. * Patient's INR was low on admission. Discussed dosing with pharmacy and we will start her on daily 5 mg tablet. Please adjust as needed. Hospital Course: This is a 86-year-old female who presented to ED on 07/01/2021 with fever, low oxygen saturations, cough, and change in mental status. Per the ED note patient would only open her eyes look around and move her arms and legs but would not speak on admission. Covid test was positive in the ED. She was started on ceftriaxone and dexamethasone in the ED. Chest x-ray showed a possible CHF with a BNP of 567. She was in acute on chronic renal failure and was noted to have lactic acidosis. Given her poor renal function we are unable to start remdesivir. She was given IV fluids and started on azithromycin. With treatment her mental status greatly improved. She was afebrile. At her worst she was requiring 2 L of oxygen and she was weaned off of this throughout her stay. Procalcitonin was obtained and was 1.04. UA was negative. Her INR on admission was noted to be 1.47, which is outside of her goal INR. She was started on warfarin with pharmacy to dose. Her renal function improved and she was started on remdesivir. She completed 3-day course of azithromycin and a 4- day course of Rocephin. She completed 5 days of remdesivir and hemoglobin A1c was checked and was 8.5. Digoxin level was checked and was 0.9. Her renal function did improve. CRP trended downward. She will be discharged back to the care home today. All home medications were continued. After discussion with pharmacy we will discharge her on 5 mg daily warfarin with an INR recheck scheduled for 07/07/2021 with results to her primary care provider. Recommend follow-up with primary care provider within 7 to 10 days of discharge, sooner if needed. Recommend repeat CBC, CMP, and magnesium in follow-up. Please monitor future INRs. Consider repeat chest x-ray. Patient will be discharged back to [facility] today. - Patient Instructions Diet, Other: IDDSI 6 soft and bite sized liberalized diabetic diet, thin liquids Activity: As Tolerated Driving: Do Not Drive Showering/Bathing: May Shower Notify Provider of: Fever, Increased Pain, Nausea and/or Vomiting Other/Special Instructions: Follow-up with primary care provider within 7 to 10 days of discharge, sooner if needed. You completed treatment for your COVID-19 pneumonia here. No new treatment will be given. You were weaned off of oxygen while here. Continue to check blood sugars 4 times daily before meals and bedtime. Record these in a journal and bring this with to all medical appointments. Check pulse oximetry readings twice daily and record these in a journal. Bring these with to all medical appointments. INR was subtherapeutic on admission. We have increased warfarin dosing to 5 mg daily. Repeat INR on 07/07/2021 with results to primary care provider. Should symptoms return or worsen contact primary care provider or return to the emergency room. - Discharge Plan *PRESCRIPTION DRUG MONITORING PROGRAM REVIEWED*: No *COPY OF PRESCRIPTION DRUG MONITORING REPORT IN PATIENT CADE: No Prescriptions/Med Rec: Warfarin [Coumadin] 5 mg PO DAILY #20 tab Home Medications: Home Meds Aspirin [Halfprin] 81 mg PO BEDTIME 12/24/14 [History] Digoxin 125 mcg PO DAILY 12/24/14 [History] Raloxifene [Evista] 60 mg PO DAILY 12/24/14 [History] Insulin Aspart [NovoLOG] 14 units SQ TIDMEALS 02/22/15 [History] Insulin Aspart [Novolog Flexpen] See Protocol SQ TIDMEALS 02/22/15 [History] Metoprolol Tartrate 12.5 mg PO BID 08/18/17 [History] Acetaminophen 650 mg PO TID 07/01/21 [History] Acetaminophen 650 mg PO TID PRN 07/01/21 [History] Albuterol Sulfate [Albuterol Sulfate HFA] 2 puff INH DAILY 07/01/21 [History] Albuterol Sulfate [Albuterol Sulfate HFA] 2 puff INH Q4H PRN 07/01/21 [History] Calcium Carb/Vitamin D3/Vit K1 [Calcium + D Soft Chewable Tab] 1 tab PO BID 07/01/21 [History] Docusate Sodium/Sennosides [Senna Plus] 2 tab PO BID 07/01/21 [History] Docusate Sodium/Sennosides [Senna Plus] 2 tab PO DAILY PRN 07/01/21 [History] Insulin Glarg,Human.Rec.Analog [Lantus] 18 unit SQ DAILY 07/01/21 [History] Levothyroxine 25 mcg PO ACBREAKFAST 07/01/21 [History] Mirabegron [Myrbetriq] 25 mg PO DAILY 07/01/21 [History] Polyvinyl Alcohol [LiquiTears 1.4% Ophth Soln] 1 drop EYEBOTH BID PRN 07/01/21 [History] Venlafaxine HCl 100 mg PO DAILY 07/01/21 [History] bisacodyL [Dulcolax] 10 mg RECTAL DAILY PRN 07/01/21 [History] polyethylene glycoL 3350 [MiraLAX] 17 gram PO DAILY PRN 07/01/21 [History] Warfarin [Coumadin] 5 mg PO DAILY #20 tab 07/05/21 [Rx] Oxygen Therapy Mode: Room Air Patient Handouts: COVID-19, Sepsis, Self Care, Adult Forms: ED Department Discharge Referrals: Reed Yin MD [Primary Care Provider] - ( diplomatic interpreter said to follow up with primary care provider as needed either at care home rounds or at clinic whatever the care home decides is best. ) - Discharge Summary/Plan Comment DC Time >30 min.: Yes Total # of Minutes for Discharge Time: 45 - General Info Date of Service: 07/05/21 Admission Dx/Problem (Free Text: Admission Diagnosis/Problem Admission Diagnosis/Problem Hypoxia Functional Status: Reports: Pain Controlled, Tolerating Diet, Urinating, Incentive Spirometry, Other (Acapella ). Denies: Ambulating (stand-aid), New Symptoms - Review of Systems Systems Review Comment: ROS unable to be reliably obtained due to patient's baseline dementia. Patient did report mild left upper quadrant abdominal pain however abdomen was soft and there was no obvious pain on palpation. Patient has been having regular BMs. Patient denied any pain but remains quite confused. - Patient Data Vitals - Most Recent: Last Vital Signs Temp 97.5 F 07/05/21 08:42 Pulse 61 07/05/21 08:46 Resp 18 07/05/21 08:42 BP 160/97 H 07/05/21 08:45 Pulse Ox 92 L 07/05/21 08:42 Weight - Most Recent: 228 lb 14.4 oz I&O - Last 24 hours: Intake & Output 07/04/21 07/05/21 07/05/21 22:59 06:59 14:59 Intake Total 1640 400 Balance 1640 400 Lab Results - Last 24 hrs: Laboratory Results - last 24 hr 07/04/21 07/04/21 07/04/21 Range/Units 12:20 16:48 21:18 WBC (3.98-10.04) K/mm3 RBC (3.98-5.22) M/mm3 Hgb (11.2-15.7) gm/dl Hct (34.1-44.9) % MCV (79.4-94.8) fl MCH (25.6-32.2) pg MCHC (32.2-35.5) g/dl RDW Std Deviation (36.4-46.3) fL Plt Count (182-369) K/mm3 MPV (9.4-12.3) fl Neut % (Auto) (34.0-71.1) % Lymph % (Auto) (19.3-51.7) % [place] % (Auto) (4.7-12.5) % Eos % (Auto) (0.7-5.8) Baso % (Auto) (0.1-1.2) % Neut # (Auto) (1.56-6.13) K/mm3 Lymph # (Auto) (1.18-3.74) K/mm3 [place] # (Auto) (0.24-0.36) K/mm3 Eos # (Auto) (0.04-0.36) K/mm3 Baso # (Auto) (0.01-0.08) K/mm3 PT (9.7-12.0) SECONDS INR Sodium (136-145) mEq/L Potassium (3.5-5.1) mEq/L Chloride (98-107) mEq/L Carbon Dioxide (21-32) mEq/L Anion Gap (5-15) BUN (7-18) mg/dL Creatinine (0.55-1.02) mg/dL Est Cr Clr Drug Dosing mL/min Estimated GFR (MDRD) (>60) mL/min BUN/Creatinine Ratio (14-18) Glucose (70-99) mg/dL POC Glucose 238 H 359 H 358 H (70-99) mg/dL Calcium (8.5-10.1) mg/dL Phosphorus (2.6-4.7) mg/dL Magnesium (1.8-2.4) mg/dL Total Bilirubin (0.2-1.0) mg/dL AST (15-37) U/L ALT (14-59) U/L Alkaline Phosphatase (46-116) U/L C-Reactive Protein (<1.0) mg/dL Total Protein (6.4-8.2) g/dl Albumin (3.4-5.0) g/dl Globulin gm/dL Albumin/Globulin Ratio (1-2) 07/05/21 07/05/21 07/05/21 Range/Units 06:19 06:40 06:40 WBC 5.04 (3.98-10.04) K/mm3 RBC 4.39 (3.98-5.22) M/mm3 Hgb 13.3 (11.2-15.7) gm/dl Hct 42.8 (34.1-44.9) % MCV 97.5 H (79.4-94.8) fl MCH 30.3 (25.6-32.2) pg MCHC 31.1 L (32.2-35.5) g/dl RDW Std Deviation 49.3 H (36.4-46.3) fL Plt Count 164 L (182-369) K/mm3 MPV 9.9 (9.4-12.3) fl Neut % (Auto) 50.0 (34.0-71.1) % Lymph % (Auto) 30.2 (19.3-51.7) % [place] % (Auto) 19.0 H (4.7-12.5) % Eos % (Auto) 0.2 L (0.7-5.8) Baso % (Auto) 0.2 (0.1-1.2) % Neut # (Auto) 2.52 (1.56-6.13) K/mm3 Lymph # (Auto) 1.52 (1.18-3.74) K/mm3 [place] # (Auto) 0.96 H (0.24-0.36) K/mm3 Eos # (Auto) 0.01 L (0.04-0.36) K/mm3 Baso # (Auto) 0.01 (0.01-0.08) K/mm3 PT 19.8 H (9.7-12.0) SECONDS INR 1.83 Sodium (136-145) mEq/L Potassium (3.5-5.1) mEq/L Chloride (98-107) mEq/L Carbon Dioxide (21-32) mEq/L Anion Gap (5-15) BUN (7-18) mg/dL Creatinine (0.55-1.02) mg/dL Est Cr Clr Drug Dosing mL/min Estimated GFR (MDRD) (>60) mL/min BUN/Creatinine Ratio (14-18) Glucose (70-99) mg/dL POC Glucose 179 H (70-99) mg/dL Calcium (8.5-10.1) mg/dL Phosphorus (2.6-4.7) mg/dL Magnesium (1.8-2.4) mg/dL Total Bilirubin (0.2-1.0) mg/dL AST (15-37) U/L ALT (14-59) U/L Alkaline Phosphatase (46-116) U/L C-Reactive Protein (<1.0) mg/dL Total Protein (6.4-8.2) g/dl Albumin (3.4-5.0) g/dl Globulin gm/dL Albumin/Globulin Ratio (1-2) 07/05/21 07/05/21 Range/Units 06:40 10:51 WBC (3.98-10.04) K/mm3 RBC (3.98-5.22) M/mm3 Hgb (11.2-15.7) gm/dl Hct (34.1-44.9) % MCV (79.4-94.8) fl MCH (25.6-32.2) pg MCHC (32.2-35.5) g/dl RDW Std Deviation (36.4-46.3) fL Plt Count (182-369) K/mm3 MPV (9.4-12.3) fl Neut % (Auto) (34.0-71.1) % Lymph % (Auto) (19.3-51.7) % [place] % (Auto) (4.7-12.5) % Eos % (Auto) (0.7-5.8) Baso % (Auto) (0.1-1.2) % Neut # (Auto) (1.56-6.13) K/mm3 Lymph # (Auto) (1.18-3.74) K/mm3 [place] # (Auto) (0.24-0.36) K/mm3 Eos # (Auto) (0.04-0.36) K/mm3 Baso # (Auto) (0.01-0.08) K/mm3 PT (9.7-12.0) SECONDS INR Sodium 138 (136-145) mEq/L Potassium 4.0 (3.5-5.1) mEq/L Chloride 101 (98-107) mEq/L Carbon Dioxide 30 (21-32) mEq/L Anion Gap 11.0 (5-15) BUN 26 H (7-18) mg/dL Creatinine 1.2 H (0.55-1.02) mg/dL Est Cr Clr Drug Dosing 32.09 mL/min Estimated GFR (MDRD) 43 (>60) mL/min BUN/Creatinine Ratio 21.7 H (14-18) Glucose 189 H (70-99) mg/dL POC Glucose 287 H (70-99) mg/dL Calcium 8.6 (8.5-10.1) mg/dL Phosphorus 2.5 L (2.6-4.7) mg/dL Magnesium 1.5 L (1.8-2.4) mg/dL Total Bilirubin 0.4 (0.2-1.0) mg/dL AST 29 (15-37) U/L ALT 22 (14-59) U/L Alkaline Phosphatase 31 L (46-116) U/L C-Reactive Protein 8.8 H* (<1.0) mg/dL Total Protein 7.1 (6.4-8.2) g/dl Albumin 2.9 L (3.4-5.0) g/dl Globulin 4.2 gm/dL Albumin/Globulin Ratio 0.7 L (1-2) Med Orders - Current: Current Medications Acetaminophen (Acetaminophen 650 Mg Supp) 650 mg RECTAL Q4H PRN PRN Reason: Pain (mild 1-3) Acetaminophen (Acetaminophen 325 Mg Tab) 650 mg PO Q4H PRN PRN Reason: Pain (Mild 1-3)/fever Albuterol (Albuterol 0.083% 2.5 Mg/3 Ml Neb Soln) 2.5 mg NEB Q2H PRN PRN Reason: Shortness Of Breath/wheezing Albuterol (Albuterol 6.7 Gm Inhaler) 0 gm INH DAILY [facility] Last Admin: 07/05/21 08:35 Dose: 2 puff Documented by: Albuterol (Albuterol 6.7 Gm Inhaler) 0 gm INH Q4H PRN PRN Reason: Shortness of Breath Last Admin: 07/03/21 15:20 Dose: 2 puff Documented by: Albuterol/Ipratropium (Albuterol/Ipratropium 3.0-0.5 Mg/3 Ml Neb Soln) 3 ml NEB Q4H PRN PRN Reason: Shortness Of Breath/wheezing Aspirin (Aspirin 81 Mg Tab.Ec) 81 mg PO BEDTIME [facility] Last Admin: 07/04/21 21:48 Dose: 81 mg Documented by: Bisacodyl (Bisacodyl 10 Mg Supp) 10 mg RECTAL DAILY PRN PRN Reason: Constipation Dexamethasone (Dexamethasone 10 Mg/Ml Sdv) 6 mg IVPUSH DAILY [facility] Stop: 07/10/21 09:01 Last Admin: 07/05/21 08:45 Dose: 6 mg Documented by: Digoxin (Digoxin 125 Mcg Tab) 125 mcg PO DAILY [facility] Last Admin: 07/05/21 08:46 Dose: 125 mcg Documented by: Ceftriaxone Sodium 2 gm/ (Sodium Chloride) 100 mls @ 200 mls/hr IV Q24H [facility] Stop: 07/05/21 16:29 Last Admin: 07/04/21 16:41 Dose: 200 mls/hr Documented by: Remdesivir 100 mg/ Sodium (Chloride) 100 mls @ 100 mls/hr IV Q24H [facility] Stop: 07/05/21 11:59 Last Admin: 07/05/21 10:49 Dose: 100 mls/hr Documented by: Insulin Glargine (Insulin Glarg,Human.Rec.Analog 100 Unit/Ml) 10 unit SUBCUT BIDAC [facility] Last Admin: 07/05/21 06:50 Dose: 10 units Documented by: Insulin Human Lispro (Insulin Lispro 100 Unit/Ml 10 Ml Vial) 0 unit SUBCUT QIDACANDBED [facility]; Protocol Last Admin: 07/05/21 08:44 Dose: 2 units Documented by: Levothyroxine Sodium (Levothyroxine 25 Mcg Tab) 25 mcg PO ACBREAKFAST [facility] Last Admin: 07/05/21 06:51 Dose: 25 mcg Documented by: Metoprolol Tartrate (Metoprolol Tartrate 25 Mg Tab) 12.5 mg PO BID [facility] Last Admin: 07/05/21 08:45 Dose: 12.5 mg Documented by: Venlafaxine Hcl 100 (Mg Tablet Ptom) 0 mg PO DAILY [facility] Last Admin: 07/05/21 08:46 Dose: Not Given Documented by: Ondansetron HCl (Ondansetron 4 Mg/2 Ml Sdv) 4 mg IV Q6H PRN PRN Reason: Nausea/Vomiting Senna/Docusate Sodium (Docusate Sodium/Sennosides 50-8.6 Mg Tab) 2 tab PO BID [facility] Last Admin: 07/05/21 08:46 Dose: 2 tab Documented by: Senna/Docusate Sodium (Docusate Sodium/Sennosides 50-8.6 Mg Tab) 2 tab PO DAILY PRN PRN Reason: Constipation Sodium Chloride (Sodium Chloride 0.9% 10 Ml Syringe) 10 ml FLUSH ASDIRECTED PRN PRN Reason: Keep Vein Open Last Admin: 07/01/21 14:55 Dose: 10 ml Documented by: Warfarin Sodium (Pharmacy To Dose - Warfarin) 1 dose .XX ASDIRECTED PRN PRN Reason: RX TO DOSE WARFARIN Discontinued Medications Acetaminophen (Acetaminophen 650 Mg Supp) 650 mg RECTAL NOW ONE Stop: 07/01/21 15:06 Last Admin: 07/01/21 16:19 Dose: 650 mg Documented by: Dexamethasone (Dexamethasone 4 Mg/Ml Sdv) 6 mg IVPUSH ONETIME ONE Stop: 07/01/21 17:04 Last Admin: 07/01/21 17:23 Dose: 6 mg Documented by: Sodium Chloride (Normal Saline) 1,000 mls @ 125 mls/hr IV ASDIRECTED [facility] Last Admin: 07/01/21 16:26 Dose: 125 mls/hr Documented by: Ceftriaxone Sodium 2 gm/ (Sodium Chloride) 100 mls @ 200 mls/hr IV ONETIME ONE Stop: 07/01/21 16:49 Last Admin: 07/01/21 16:46 Dose: 200 mls/hr Documented by: Remdesivir 200 mg/ Sodium (Chloride) 250 mls @ 250 mls/hr IV ONETIME ONE Stop: 07/01/21 17:04 Last Admin: 07/01/21 19:15 Dose: Not Given Documented by: Azithromycin 500 mg/ Sodium (Chloride) 250 mls @ 250 mls/hr IV Q24H [facility] Stop: 07/03/21 22:29 Last Admin: 07/03/21 20:47 Dose: 250 mls/hr Documented by: Sodium Chloride (Normal Saline) 1,000 mls @ 50 mls/hr IV ASDIRECTED [facility] Last Admin: 07/01/21 21:49 Dose: 50 mls/hr Documented by: Magnesium Sulfate 2 gm/ Premix 50 mls @ 25 mls/hr IV ONETIME ONE Stop: 07/02/21 10:28 Last Admin: 07/02/21 09:02 Dose: 25 mls/hr Documented by: Remdesivir 200 mg/ Sodium (Chloride) 250 mls @ 250 mls/hr IV ONETIME ONE Stop: 07/02/21 14:29 Last Admin: 07/02/21 13:35 Dose: 250 mls/hr Documented by: Remdesivir 100 mg/ Sodium (Chloride) 100 mls @ 100 mls/hr IV Q24H [facility] Stop: 07/06/21 14:29 Last Admin: 07/04/21 13:41 Dose: 100 mls/hr Documented by: Magnesium Sulfate 2 gm/ Premix 50 mls @ 25 mls/hr IV ONETIME ONE Stop: 07/05/21 10:59 Last Admin: 07/05/21 08:44 Dose: 25 mls/hr Documented by: Influenza Virus Vaccine (Flu Vacc Rn7520(65up)/Mf59c/Pf 60 Mcg/0.5 Ml Syringe) 60 mcg IM .ONCE ONE Stop: 07/01/21 20:01 Insulin Glargine (Insulin Glarg,Human.Rec.Analog 100 Unit/Ml) 10 unit SUBCUT DAILY [facility] Last Admin: 07/03/21 07:59 Dose: 10 units Documented by: Insulin Human Lispro (Insulin Lispro 100 Unit/Ml 10 Ml Vial) 10 unit SUBCUT ONETIME ONE Stop: 07/03/21 18:51 Last Admin: 07/03/21 19:01 Dose: 10 unit Documented by: Warfarin Sodium (Warfarin 5 Mg Tab) 5 mg PO ONETIME ONE Stop: 07/01/21 23:01 Last Admin: 07/01/21 23:10 Dose: 5 mg Documented by: Warfarin Sodium (Warfarin 5 Mg Tab) 5 mg PO QPM [facility] Stop: 07/02/21 18:01 Last Admin: 07/02/21 17:21 Dose: 5 mg Documented by: Warfarin Sodium (Warfarin 7.5 Mg Tab) 7.5 mg PO QPM [facility] Stop: 07/03/21 18:01 Last Admin: 07/03/21 17:54 Dose: 7.5 mg Documented by: Warfarin Sodium (Warfarin 3 Mg Tab) 6 mg PO QPM [facility] Stop: 07/04/21 18:01 Last Admin: 07/04/21 17:15 Dose: 6 mg Documented by: - Exam Quality Assessment: Reports: DVT Prophylaxis. Denies: Supplemental Oxygen, Urine Catheter General: Reports: Alert, Cooperative, No Acute Distress. Denies: Oriented HEENT: Reports: Pupils Equal, Pupils Reactive, Mucous Membr. Moist/[place] Neck: Reports: Supple, Trachea Midline Lungs: Reports: Normal Respiratory Effort, Decreased Breath Sounds, Crackles. Denies: Wheezing Cardiovascular: Reports: Irregular Rhythm. Denies: Regular Rate (Regular) GI/Abdominal Exam: Normal Bowel Sounds, Soft, Non-Tender, No Distention (Female) Exam: Deferred Back Exam: Reports: Normal Inspection, Decreased Range of Motion Extremities: Normal Inspection, Normal Range of Motion, Non-Tender, Normal Capillary Refill, Pedal Edema (Trace to 1+) Skin: Reports: Warm, Dry, Intact Neurological: Reports: No New Focal Deficit Psy/Mental Status: Reports: Alert
[2021-07-05 11:54] VITALS: BP 163/70; PULSE 63
[2021-07-05] MEDS ORDERED: Warfarin 5 MG Tab PO SCH (18:00)
== END 2021-07-05 14:25 | DRG 177 ==
LOC: JD.ED 14:29 → SUPCPDRO 14:29 → JD.MS 17:25
PROVIDERS: ADMIT Emergency Medicine; ATTEND Family Medicine
PROC: 3E0333Z Introduction of Anti-inflammatory into Peripheral Vein, Percutaneous Approach (ICD-10-PCS; 2021-07-01)
PROC: XW033E5 Introduction of Remdesivir Anti-infective into Peripheral Vein, Percutaneous Approach, New Technology Group 5 (ICD-10-PCS; principal; 2021-07-02)
PROC: 3E0234Z Introduction of Serum, Toxoid and Vaccine into Muscle, Percutaneous Approach (ICD-10-PCS; 2021-07-05)
DX: U07.1 COVID-19 (principal); J12.82 Pneumonia due to coronavirus disease 2019; G93.41 Metabolic encephalopathy; J96.91 Respiratory failure, unspecified with hypoxia; I48.20 Chronic atrial fibrillation, unspecified; I13.0 Hypertensive heart and chronic kidney disease with heart failure and stage 1 through stage 4 chronic kidney disease, or unspecified chronic kidney disease; N17.9 Acute kidney failure, unspecified; E87.2 Acidosis; I49.5 Sick sinus syndrome; G30.9 Alzheimer's disease, unspecified; F02.80 Dementia in other diseases classified elsewhere, unspecified severity, without behavioral disturbance, psychotic disturbance, mood disturbance, and anxiety; N18.9 Chronic kidney disease, unspecified; I50.9 Heart failure, unspecified; E78.00 Pure hypercholesterolemia, unspecified; M81.0 Age-related osteoporosis without current pathological fracture; M54.9 Dorsalgia, unspecified; M19.90 Unspecified osteoarthritis, unspecified site; K21.9 Gastro-esophageal reflux disease without esophagitis; K57.90 Diverticulosis of intestine, part unspecified, without perforation or abscess without bleeding; Z95.0 Presence of cardiac pacemaker; Z79.01 Long term (current) use of anticoagulants; Z79.82 Long term (current) use of aspirin; Z79.899 Other long term (current) drug therapy; Z79.4 Long term (current) use of insulin; Z23 Encounter for immunization
CPT/HCPCS: 36415; 71045; 71045-26; 80053; 80162; 81001; 82947; 83036; 83605; 83735; 83880; 84100; 84145; 85025; 85379; 85610; 86140; 87040; 87641; 87804; 90694; 94640; 94667; 94668; 94762; 96365; 96375; 97110-GP; 97162-GP; 97530-GP; 99285-25; A9270-GY; G0008; J0456; J0696; J1100; J1815-GY; J3475; J7030; J7050; U0002

== ENCOUNTER 2024-06-01 12:53 | Emergency (ER) | payer OTHER, MEDICAID ==
[2024-06-01 15:46] LABS: BASOPHILS ABSOLUTE AUTO 0.1 K/mm3 (0.0-0.2); BASOPHILS PERCENT AUTO 0.7 % (0.0-1.0); EOSINOPHILS ABSOLUTE AUTO 0.2 K/mm3 (0.0-0.4); EOSINOPHILS PERCENT AUTO 1.5 % (0.0-6.0); HEMATOCRIT 37.1 % (37.0-47.0); HEMOGLOBIN 11.4 gm/dl (12.0-16.0); IMMATURE GRAN ABSOLUTE AUTO 0.07 K/mm3 (0.00-0.05); IMMATURE GRAN PERCENT AUTO 0.5 % (0.0-0.4); LYMPHOCYTES ABSOLUTE AUTO 1.5 K/mm3 (1.0-4.8); LYMPHOCYTES PERCENT AUTO 11.1 % (24.0-44.0); MEAN CORPUSCULAR HEMOGLOBIN 31.7 pg (28.0-32.0); MEAN CORPUSCULAR HGB CONC 30.7 g/dl (32.0-36.0); MEAN CORPUSCULAR VOLUME 103.1 fl (83.0-99.0); MONOCYTES ABSOLUTE AUTO 1.5 K/mm3 (0.0-0.8); MONOCYTES PERCENT AUTO 11.2 % (0.0-8.0); NEUTROPHILS ABSOLUTE AUTO 10.3 K/mm3 (1.8-7.7); PLATELET COUNT,PLT 187 K/mm3 (150-400); WHITE BLOOD CELL COUNT,WBC 13.73 K/mm3 (3.9-11.3)
[2024-06-01 16:18] LABS: SLIDE REVIEW ABNORMAL SMEAR
[2024-06-01 16:20] LABS: A/G RATIO 0.7 (1-2); ALBUMIN 3.1 g/dl (3.4-5.0); ANION GAP 10.5 (5-15); BILIRUBIN TOTAL 0.7 mg/dL (0.2-1.0); BUN/CREATININE RATIO 16.3 (14-18); CALCIUM 9.6 mg/dL (8.5-10.1); CREATININE 2.4 mg/dL (0.55-1.02); EST CRCL DRUG DOSING (CG) 14.58 mL/min; POTASSIUM,K 4.5 mEq/L (3.5-5.1); PROTEIN TOTAL,TP 7.5 g/dl (6.4-8.2)
[2024-06-01 16:36] LABS: C-REACTIVE PROTEIN 7.35 mg/dL (<0.30); MAGNESIUM 1.6 mg/dL (1.8-2.4)
[2024-06-01 17:07] LABS: LACTIC ACID 1.6 mmol/L (0.4-2.0)
[2024-06-01] MEDS: Sodium Chloride 0.9% 10 ML Syringe FLUSH PRN (17:33)
[2024-06-01] MEDS: 50% Dextrose in Water 50 ML Syringe ONE (17:33)
[2024-06-01] MEDS: 50% Dextrose in Water 50 ML Syringe IVPUSH STA ×2 (17:33→19:54)
[2024-06-01 18:30] LABS: APPEARANCE,URINE CLEAR (Clear); BILIRUBIN,URINE NEGATIVE (Negative); COLOR,URINE DARK YELLOW (Yellow); GLUCOSE,URINE NEGATIVE (Negative); KETONES,URINE NEGATIVE (Negative); LEUKOCYTE ESTERASE,URINE NEGATIVE (Negative); NITRITE,URINE NEGATIVE (Negative); OCCULT BLOOD,URINE NEGATIVE (Negative); PH,URINE 6.5 (5.0-8.0); PROTEIN,URINE NEGATIVE (Negative); UROBILINOGEN,URINE 0.2 (0.2-1.0)
[2024-06-01 20:40] LABS: CORONAVIRUS COVID-19 NAA NEGATIVE (NEGATIVE); INFLUENZA A NAA NEGATIVE (NEGATIVE); RESPIRATORY SYNCYTIAL VIR NAA NEGATIVE (NEGATIVE)
[2024-06-01] MEDS ORDERED: Amoxicillin/Clavulanate K 875-125 MG Tab PO ONE (20:58)
[2024-06-01] MEDS: Sodium Chloride 0.9% 1,000 ML IV SCH (21:20)
[2024-06-01] MEDS: Amoxicillin/Clavulanate K 500-125 MG Tab PO ONE (22:13)
[2024-06-01] MEDS: Doxycycline Monohydrate 100 MG Cap PO ONE (22:14)
[2024-06-01 23:58] VITALS: BP 114/46; PULSE 84
== END 2024-06-01 23:50 ==
LOC: JD.ED 12:53
DX: J18.9 Pneumonia, unspecified organism (principal); I13.0 Hypertensive heart and chronic kidney disease with heart failure and stage 1 through stage 4 chronic kidney disease, or unspecified chronic kidney disease; I50.9 Heart failure, unspecified; N18.9 Chronic kidney disease, unspecified; I48.91 Unspecified atrial fibrillation; Z88.1 Allergy status to other antibiotic agents; Z79.890 Hormone replacement therapy; Z79.82 Long term (current) use of aspirin; Z79.4 Long term (current) use of insulin; Z79.01 Long term (current) use of anticoagulants; Z95.0 Presence of cardiac pacemaker; E11.22 Type 2 diabetes mellitus with diabetic chronic kidney disease; Z90.49 Acquired absence of other specified parts of digestive tract; Z90.710 Acquired absence of both cervix and uterus
CPT/HCPCS: 0241U; 36415; 71045; 71250; 74176; 80053; 81003; 82947; 83605; 83735; 84484; 85025; 86140; 93005; 96361; 96374; 96376; 99284; A9270; C1758; J3490; J7030; 93010